=== PATIENT | female | born 1945 | race Caucasian/White ===

== ENCOUNTER 2017-12-20 08:52 | Emergency (ER) | payer MEDICARE, OTHER ==
[~2017-12-20] VITALS: Ht 193 cm; Wt 116.0 kg
[~2017-12-20 08:52] MED LIST: ACET-2144 PO; ALBU18HF2 INH; ASPI81TA52 PO; ATOR20TA PO; CALC-729 PO; CLIN150C8 PO; CLOP75TA15 PO; CYCL-1 PO; MECL12.5 PO; METO-395 PO; OMEP-84 PO; PRED5TAB PO; TRAM50TA2 PO; ZOLE5INF7 IV
[2017-12-20 09:53] LABS: BASOPHILS % (AUTO) 0.5 % (0-1); EOSINOPHILS # (AUTO) 0.1 X10'3 (0-0.9); HEMATOCRIT 39.3 % (35.0-45.0); HEMOGLOBIN 12.9 g/dl (12.0-16.0); LYMPHOCYTES # (AUTO) 1.1 X10'3 (1.1-4.8); LYMPHOCYTES % (AUTO) 18.2 % (21-51); MEAN CORPUSCULAR HEMOGLOBIN 28.6 PG (27.0-31.0); MEAN CORPUSCULAR HGB CONC 32.9 % (33.0-36.5); MEAN CORPUSCULAR VOLUME 87.1 FL (78-98); MEAN PLATELET VOLUME 8.7 FL (7.4-10.4); MONOCYTES # (AUTO) 0.7 X10'3 (0-0.9); MONOCYTES % (AUTO) 11.4 % (2-12); NEUTROPHILS # (AUTO) 4.3 X10'3 (1.8-7.7); NEUTROPHILS % (AUTO) 68.9 % (42-75); PLATELET COUNT 158 X10'3 (140-440); RED CELL DISTRIBUTION WIDTH 15.4 % (11.5-14.5); WHITE BLOOD COUNT 6.2 X10'3 (4.5-11.0)
[2017-12-20 10:12] LABS: ALANINE AMINOTRANSFERASE 16 U/L (12-78); ALBUMIN 2.8 G/DL (3.4-5.0); ALBUMIN/GLOBULIN RATIO 0.7 (1.1-1.5); ALKALINE PHOSPHATASE 86 IU/L (46-116); ANION GAP 7 (8-16); ASPARTATE AMINO TRANSFERASE 15 U/L (10-37); BILIRUBIN,TOTAL 0.3 MG/DL (0.1-1.0); BLOOD UREA NITROGEN 50 MG/DL (7-18); BUN/CREATININE RATIO 46.7 (6.6-38.0); CALCIUM 8.9 MG/DL (8.5-10.1); CHLORIDE 105 MMOL/L (99-107); CREATININE 1.07 MG/DL (0.40-0.90); GLUCOSE 107 MG/DL (70-104); POTASSIUM 4.5 MMOL/L (3.5-5.1); SODIUM 138 MMOL/L (135-145); TOTAL PROTEIN 6.8 G/DL (6.4-8.2); eGFR 50 ML/MIN
[2017-12-20 11:16] LABS: CLARITY,URINE CLOUDY (Clear); COLOR,URINE YELLOW (Yellow); GLUCOSE, URINE NEGATIVE (Neg); KETONES,URINE NEGATIVE (Neg); LEUKOCYTE ESTERASE ,URINE MODERATE (Neg); NITRITES, URINE POSITIVE (Neg); OCCULT BLOOD,URINE LARGE (Neg); PH,URINE 6.5 (4.8-8.0); PROTEIN,URINE NEGATIVE (Neg); UA COLLECTION TYPE CLN CATCH MIDSTREAM; UROBILINOGEN,URINE 0.2 E.U/dL (0.2-1.0)
[2017-12-20 11:21] LABS: SQUAMOUS EPITHELIAL CELL,UR FEW /LPF (FEW)
[2017-12-20 11:22] LABS: BACTERIA,URINE 2+ /HPF (Neg)
[2017-12-20] MEDS ORDERED: CIPR-259 PO (11:28)
[2017-12-20 11:46] VITALS: BP 136/74
== END 2017-12-20 11:51 | disposition home or self-care (01) ==
LOC: ER 08:52
DX: N39.0 Urinary tract infection, site not specified (principal); I25.10 Atherosclerotic heart disease of native coronary artery without angina pectoris; I25.2 Old myocardial infarction; G89.29 Other chronic pain; Z90.49 Acquired absence of other specified parts of digestive tract; Z90.710 Acquired absence of both cervix and uterus; Z98.890 Other specified postprocedural states; Z88.0 Allergy status to penicillin; Z88.5 Allergy status to narcotic agent; Z79.899 Other long term (current) drug therapy; Z79.82 Long term (current) use of aspirin
CPT/HCPCS: 36415; 71045; 80053; 81001; 83880; 84484; 85025; 87077; 87088; 87186; 93005; 99285

== ENCOUNTER 2018-05-22 06:19 | Emergency (ER) | payer MEDICARE, OTHER ==
[~2018-05-22] VITALS: Ht 193 cm; Wt 113.6 kg
[2018-05-22] MEDS ORDERED: METH500T PO (07:01)
[2018-05-22] MEDS ORDERED: VAL5T PO (07:01)
[2018-05-22 07:30] VITALS: BP 143/76
== END 2018-05-22 07:30 | disposition home or self-care (01) ==
LOC: ER 06:20
DX: M62.830 Muscle spasm of back (principal); I25.10 Atherosclerotic heart disease of native coronary artery without angina pectoris; I25.2 Old myocardial infarction; Z86.73 Personal history of transient ischemic attack (TIA), and cerebral infarction without residual deficits; Z86.718 Personal history of other venous thrombosis and embolism; M06.9 Rheumatoid arthritis, unspecified; Z90.49 Acquired absence of other specified parts of digestive tract; Z90.710 Acquired absence of both cervix and uterus; Z79.82 Long term (current) use of aspirin; Z88.0 Allergy status to penicillin; Z88.8 Allergy status to other drugs, medicaments and biological substances; Z88.6 Allergy status to analgesic agent; Z88.1 Allergy status to other antibiotic agents; Z91.041 Radiographic dye allergy status; G89.29 Other chronic pain
CPT/HCPCS: 99283

== ENCOUNTER 2018-12-08 07:54 | Day surgery (SDC) | payer MEDICARE, OTHER ==
[2018-11-27 12:36] LABS: BASOPHILS % (AUTO) 0.4 % (0-1); EOSINOPHILS # (AUTO) 0.1 X10'3 (0-0.9); EOSINOPHILS % (AUTO) 2.7 % (0-6); LYMPHOCYTES # (AUTO) 1.2 X10'3 (1.1-4.8); MEAN CORPUSCULAR HEMOGLOBIN 20.8 PG (27.0-31.0); MEAN CORPUSCULAR HGB CONC 31.4 g/dL (33.0-36.5); MEAN CORPUSCULAR VOLUME 66.3 FL (78-98); MEAN PLATELET VOLUME 8.9 FL (7.4-10.4); MONOCYTES # (AUTO) 0.6 X10'3 (0-0.9); MONOCYTES % (AUTO) 11.6 % (2-12); NEUTROPHILS # (AUTO) 2.9 X10'3 (1.8-7.7); NEUTROPHILS % (AUTO) 60.3 % (42-75); PRE OP HEMATOCRIT 33.3 % (35.0-45.0); PRE OP PLATELET COUNT 184 X10'3 (140-440); RED BLOOD COUNT 5.02 X10'6 (4.20-5.60); RED CELL DISTRIBUTION WIDTH 20.6 % (11.5-14.5)
[2018-11-27 12:39] LABS: PRE OP HEMOGLOBIN 10.4 g/dL (12.0-16.0)
[2018-11-27 12:40] LABS: BLOOD UREA NITROGEN 17 MG/DL (7-18); BUN/CREATININE RATIO 18.3 (6.6-38.0); CALCIUM 9.3 MG/DL (8.5-10.1); CHLORIDE 106 MMOL/L (99-107); CREATININE 0.93 MG/DL (0.40-0.90); PRE OP ANION GAP 6 (8-16); PRE OP GLUCOSE 104 MG/DL (70-104); PRE OP POTASSIUM 4.1 MMOL/L (3.4-5.1); PRE OP SODIUM 140 MMOL/L (135-145); TOTAL CARBON DIOXIDE 28.3 MMOL/L (24-32); eGFR 59 ML/MIN
[2018-11-27 12:41] LABS: ALBUMIN 3.2 G/DL (3.4-5.0); ALBUMIN/GLOBULIN RATIO 0.8 (1.1-1.5); ALKALINE PHOSPHATASE 87 IU/L (46-116); PRE OP ALT 17 U/L (30-65); PRE OP AST 13 U/L (10-37); PRE OP BILIRUB, TOTAL 0.3 MG/DL (0.0-1.0); TOTAL PROTEIN 7.1 G/DL (6.4-8.2)
[2018-11-27 14:29] LABS: PLATELET ESTIMATE NORMAL
[2018-11-27 14:33] LABS: ANISOCYTOSIS 3+; ELLIPTOCYTES 2+; HYPOCHROMASIA 1+; MICROCYTOSIS 2+
[2018-11-27 14:34] LABS: SCHISTOCYTES FEW; TEAR DROP CELLS FEW
[~2018-12-08] VITALS: Ht 193 cm; Wt 108.0 kg
[~2018-12-08 07:54] MED LIST changes: +ASPI-1264 PO; -ASPI81TA52 PO; +BUPIVAcaine/PF 2.5mg/ml (0.25%) 10ml vial ONE; -CALC-729 PO; -CLIN150C8 PO; -CYCL-1 PO; -PRED5TAB PO
[2018-12-08 08:00] VITALS: BP 127/68
[2018-12-08] MEDS ORDERED: ringers solution, lacted 1,000 ML IV SCH (08:00)
[2018-12-08] MEDS ORDERED: clindamycin 600mg/D5W 50ml 50 ML IV ONE (08:00)
[2018-12-08] MEDS ORDERED: DOCUMENT DATE & TIME OF BETA-BLOCKER PO ONE (08:00)
[2018-12-08] MEDS ORDERED: famotidine 20mg tablet PO ONE (08:00)
[2018-12-08] MEDS ORDERED: albuterol 2.5 MG/3 ML nebule NEB ONE (08:00)
--- NOTE | 2018-12-08 09:16 | NUR ---
Patient's surgery was cancelled because patient could not find a ride home, insisted on driving her motorized wheelchair home after surgery. patient is right handed, was to have rt wrist arthodesis. Due to her medical history, pt was in need of a block which would have affected her mobility of driving her wheelchair. [employer] was called yesterday.Taxi's were called and declined, pt has no family or friends, [employer] was called, but pt's handicap transportation card had in 2013. [employer] and [employer] were called and declined because based on the pts apartment location, they are unable to turn around or deliver the pt safely to her home. (based on the physical location of apt) I spoke with [facility] yesterday and they told me if pt reapplies for [facility] they will be able to take her home, but the reapplication process takes a week or two. I explained this to Dr Regalado and he decided to delay the surgery until pt can arrange transportation with [facility]. I spoke with pt and she is ok with this solution.
[2018-12-08] MEDS ORDERED: CLOP75TA35 PO (10:55)
== END 2018-12-08 09:30 | disposition home or self-care (01) ==
LOC: PAS 07:54
PROVIDERS: ATTEND Orthopaedic Surgery Hand Surgery
DX: M06.9 Rheumatoid arthritis, unspecified (principal); Z53.8 Procedure and treatment not carried out for other reasons; F17.210 Nicotine dependence, cigarettes, uncomplicated; Z79.899 Other long term (current) drug therapy; Z79.01 Long term (current) use of anticoagulants; Z88.6 Allergy status to analgesic agent; Z88.8 Allergy status to other drugs, medicaments and biological substances; M25.531 Pain in right wrist; Z91.041 Radiographic dye allergy status; Z98.890 Other specified postprocedural states
CPT/HCPCS: 36415; 80053; 82948; 85025; 85610; 85730; 93005; J3490; J7120

== ENCOUNTER 2018-12-12 08:05 | Emergency (ER) | payer MEDICARE, OTHER ==
[~2018-12-12] VITALS: Ht 193 cm; Wt 109.1 kg
[~2018-12-12 08:05] MED LIST changes: -BUPIVAcaine/PF 2.5mg/ml (0.25%) 10ml vial ONE; +CLOP75TA35 PO
[2018-12-12 09:20] LABS: CLARITY,URINE CLOUDY (Clear); COLOR,URINE YELLOW (Yellow); UA COLLECTION TYPE CLN CATCH MIDSTREAM
[2018-12-12 09:21] LABS: GLUCOSE, URINE NEGATIVE (Neg); KETONES,URINE NEGATIVE (Neg); PROTEIN,URINE 30 mg/dl (Neg)
[2018-12-12 09:22] LABS: LEUKOCYTE ESTERASE ,URINE NEGATIVE (Neg); NITRITES, URINE POSITIVE (Neg); OCCULT BLOOD,URINE TRACE-LYSED (Neg); UROBILINOGEN,URINE 0.2 E.U/dL (0.2-1.0)
[2018-12-12 09:23] LABS: BACTERIA,URINE 4+ /HPF (Neg); RBC,URINE 0-2 /HPF (0-2); WBC,URINE TNTC /HPF (0-4)
[2018-12-12 09:24] LABS: SQUAMOUS EPITHELIAL CELL,UR FEW /LPF (FEW)
[2018-12-12] MEDS ORDERED: CEPH500C5 PO (09:41)
[2018-12-12 09:53] VITALS: BP 146/66
== END 2018-12-12 09:54 | disposition home or self-care (01) ==
LOC: ER 08:07
DX: N39.0 Urinary tract infection, site not specified (principal); I25.10 Atherosclerotic heart disease of native coronary artery without angina pectoris; I25.2 Old myocardial infarction; G89.29 Other chronic pain; M06.9 Rheumatoid arthritis, unspecified; Z86.73 Personal history of transient ischemic attack (TIA), and cerebral infarction without residual deficits; Z86.718 Personal history of other venous thrombosis and embolism; Z86.711 Personal history of pulmonary embolism; Z90.49 Acquired absence of other specified parts of digestive tract; Z98.890 Other specified postprocedural states; Z90.710 Acquired absence of both cervix and uterus; Z79.899 Other long term (current) drug therapy; Z79.82 Long term (current) use of aspirin; Z88.6 Allergy status to analgesic agent; Z88.0 Allergy status to penicillin; Z88.1 Allergy status to other antibiotic agents; Z88.8 Allergy status to other drugs, medicaments and biological substances
CPT/HCPCS: 81001; 87077; 87088; 87186; 99284

== ENCOUNTER 2019-01-19 10:41 | Emergency (ER) | payer MEDICARE, OTHER ==
[~2019-01-19] VITALS: Ht 193 cm; Wt 109.1 kg
[~2019-01-19 10:41] MED LIST changes: -ALBU18HF2 INH; -CLOP75TA15 PO; +DIPH25CA83 PO; -MECL12.5 PO; -TRAM50TA2 PO; -ZOLE5INF7 IV
[2019-01-19 10:53] VITALS: BP 122/56
--- NOTE | 2019-01-19 11:36 | NUR ---
PT HAS BEEN HAVING BLADDER SPASMS WHEN URINATING FOR ABOUT 2 WEEKS INTERMITTENTLY, THINKS SHE HAS A BLADDER INFECTION
[2019-01-19 12:19] LABS: CLARITY,URINE CLOUDY (Clear); COLOR,URINE YELLOW (Yellow); GLUCOSE, URINE NEGATIVE (Neg); KETONES,URINE NEGATIVE (Neg); LEUKOCYTE ESTERASE ,URINE LARGE (Neg); NITRITES, URINE POSITIVE (Neg); OCCULT BLOOD,URINE TRACE-INTACT (Neg); PROTEIN,URINE NEGATIVE (Neg); UROBILINOGEN,URINE 0.2 E.U/dL (0.2-1.0)
[2019-01-19 12:24] LABS: UA COLLECTION TYPE CLN CATCH MIDSTREAM
[2019-01-19 12:31] LABS: BACTERIA,URINE 4+ /HPF (Neg); MUCUS STRANDS FEW /LPF (Neg); SQUAMOUS EPITHELIAL CELL,UR MANY /LPF (FEW); WBC,URINE 20-30 /HPF (0-4)
--- NOTE | 2019-01-19 13:08 | NUR ---
pt demanded to leave. educated about leaving without paperwork and that i will speak to the provider. spoke with Moisés BROWN and walking back to room to soeak with pt but pt had already left in w/c with all belongings.
--- NOTE | 2019-01-19 13:15 | NUR ---
LAB WAS IN TO DRAW BLOOD AND TOLD NURSE SHE SAW TWO BUGS CRAWLING ON PT. NURSE IN TO SPEAK WITH PT AND FOUND THREE MORE WHICH WERE KILLED, ONE LIVE BUG ON THE FLOOR AND ONE ONE ON THE FLOOR, FIVE IN TOTAL. BUGS WERE BEDBUGS. WHEN PT WAS TOLD SHE HAD BEDBUGS, SHE SAID "I KNOW. 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 PROVIDER AND CHARGE NURSE WERE NOTIFIED, PT WAS MOVED TO WOUND CARE BED 2. PT WOULD NOT STAY IN ROOM WHEN ASKED. BUG WAS FOUND ON FLOOR BETWEEN BED E AND BED 2, HAD BEEN RUN OVER BY PT'S W/C AND LEFT BLOOD SPOT ON THE FLOOR. ENGINEERING WAS CALLED TO PLACE STICKY BARRIER ON FLOOR OUTSIDE ROOM AND EVS WAS CALLED TO CLEAN BED E Addendum: 01/19/19 at 2026 by RPRATHER LATE ENTRY.
[2019-01-19 13:31] LABS: BASOPHILS % (AUTO) 0.1 % (0-1); EOSINOPHILS # (AUTO) 0.1 X10'3 (0-0.9); EOSINOPHILS % (AUTO) 2.9 % (0-6); HEMATOCRIT 29.8 % (35.0-45.0); HEMOGLOBIN 9.1 g/dl (12.0-16.0); LYMPHOCYTES % (AUTO) 23.2 % (21-51); MEAN CORPUSCULAR HEMOGLOBIN 20.3 PG (27.0-31.0); MEAN CORPUSCULAR HGB CONC 30.5 g/dL (33.0-36.5); MEAN CORPUSCULAR VOLUME 66.7 FL (78-98); MEAN PLATELET VOLUME 8.8 FL (7.4-10.4); MONOCYTES # (AUTO) 0.5 X10'3 (0-0.9); MONOCYTES % (AUTO) 12.3 % (2-12); NEUTROPHILS # (AUTO) 2.5 X10'3 (1.8-7.7); NEUTROPHILS % (AUTO) 61.5 % (42-75); PLATELET COUNT 207 X10'3 (140-440); RED BLOOD COUNT 4.47 X10'6 (4.20-5.60); RED CELL DISTRIBUTION WIDTH 20.6 % (11.5-14.5); WHITE BLOOD COUNT 4.1 X10'3 (4.5-11.0)
[2019-01-19 14:00] LABS: ANISOCYTOSIS 3+; HYPOCHROMASIA 1+; MICROCYTOSIS 2+; PLATELET ESTIMATE NORMAL
[2019-01-19 14:01] LABS: ELLIPTOCYTES 2+; POIKILOCYTOSIS FEW; POLYCHROMASIA FEW
== END 2019-01-19 13:21 | disposition left against medical advice (07) ==
LOC: ER 10:42
DX: N17.9 Acute kidney failure, unspecified (principal); E87.6 Hypokalemia; I25.10 Atherosclerotic heart disease of native coronary artery without angina pectoris; I25.2 Old myocardial infarction; G89.29 Other chronic pain; M06.9 Rheumatoid arthritis, unspecified; Z86.711 Personal history of pulmonary embolism; Z86.718 Personal history of other venous thrombosis and embolism; Z90.49 Acquired absence of other specified parts of digestive tract; Z87.442 Personal history of urinary calculi; Z90.710 Acquired absence of both cervix and uterus; Z86.73 Personal history of transient ischemic attack (TIA), and cerebral infarction without residual deficits; Z98.890 Other specified postprocedural states; Z88.0 Allergy status to penicillin; Z88.1 Allergy status to other antibiotic agents; Z91.048 Other nonmedicinal substance allergy status; Z79.82 Long term (current) use of aspirin; Z79.899 Other long term (current) drug therapy
CPT/HCPCS: 36415; 81001; 85025; 99284

== ENCOUNTER 2019-01-28 06:26 | Emergency (ER) | payer MEDICARE ==
[~2019-01-28] VITALS: Ht 193 cm; Wt 109.0 kg
[2019-01-28 08:12] LABS: CLARITY,URINE CLOUDY (Clear); COLOR,URINE YELLOW (Yellow); GLUCOSE, URINE NEGATIVE (Neg); KETONES,URINE NEGATIVE (Neg); LEUKOCYTE ESTERASE ,URINE MODERATE (Neg); NITRITES, URINE NEGATIVE (Neg); OCCULT BLOOD,URINE TRACE-INTACT (Neg); PROTEIN,URINE 100 mg/dl (Neg); UROBILINOGEN,URINE 0.2 E.U/dL (0.2-1.0)
[2019-01-28 08:13] LABS: UA COLLECTION TYPE URINAL
[2019-01-28 08:19] LABS: WBC,URINE TNTC /HPF (0-4)
[2019-01-28 08:20] LABS: RBC,URINE 0-2 /HPF (0-2); SQUAMOUS EPITHELIAL CELL,UR MODERATE /LPF (FEW)
[2019-01-28 08:21] LABS: BACTERIA,URINE 4+ /HPF (Neg)
[2019-01-28] MEDS ORDERED: CEPH500C5 PO (08:25)
[2019-01-28 08:59] VITALS: BP 136/67
== END 2019-01-28 09:02 | disposition home or self-care (01) ==
LOC: ER 06:26
DX: N39.0 Urinary tract infection, site not specified (principal); I25.10 Atherosclerotic heart disease of native coronary artery without angina pectoris; I25.2 Old myocardial infarction; M06.9 Rheumatoid arthritis, unspecified; G89.29 Other chronic pain; Z86.718 Personal history of other venous thrombosis and embolism; Z86.711 Personal history of pulmonary embolism; Z90.49 Acquired absence of other specified parts of digestive tract; Z90.710 Acquired absence of both cervix and uterus; Z98.890 Other specified postprocedural states; Z88.1 Allergy status to other antibiotic agents; Z88.0 Allergy status to penicillin; Z88.5 Allergy status to narcotic agent; Z88.6 Allergy status to analgesic agent; Z88.8 Allergy status to other drugs, medicaments and biological substances; Z79.82 Long term (current) use of aspirin; Z79.899 Other long term (current) drug therapy; Z86.73 Personal history of transient ischemic attack (TIA), and cerebral infarction without residual deficits
CPT/HCPCS: 81001; 87088; 99284

== ENCOUNTER 2019-03-07 19:05 | Emergency (ER) | payer MEDICARE, OTHER ==
[~2019-03-07] VITALS: Ht 193 cm; Wt 93.4 kg
[2019-03-07 19:24] VITALS: BP 128/68
[2019-03-07 20:10] LABS: CLARITY,URINE TURBID (Clear); COLOR,URINE YELLOW (Yellow); GLUCOSE, URINE NEGATIVE (Neg); KETONES,URINE NEGATIVE (Neg); LEUKOCYTE ESTERASE ,URINE LARGE (Neg); NITRITES, URINE POSITIVE (Neg); OCCULT BLOOD,URINE MODERATE (Neg); PH,URINE 6.5 (4.8-8.0); PROTEIN,URINE 30 mg/dl (Neg); UROBILINOGEN,URINE 0.2 E.U/dL (0.2-1.0)
[2019-03-07 20:11] LABS: UA COLLECTION TYPE CLN CATCH MIDSTREAM
[2019-03-07 20:35] LABS: BACTERIA,URINE 4+ /HPF (Neg); MUCUS STRANDS MODERATE /LPF (Neg); RBC,URINE NONE SEEN /HPF (0-2); SQUAMOUS EPITHELIAL CELL,UR FEW /LPF (FEW); WBC,URINE TNTC /HPF (0-4)
[2019-03-07 21:27] LABS: BASOPHILS % (AUTO) 0.1 % (0-1); EOSINOPHILS # (AUTO) 0.1 X10'3 (0-0.9); EOSINOPHILS % (AUTO) 1.5 % (0-6); HEMATOCRIT 30.7 % (35.0-45.0); HEMOGLOBIN 9.3 g/dl (12.0-16.0); LYMPHOCYTES # (AUTO) 1.2 X10'3 (1.1-4.8); LYMPHOCYTES % (AUTO) 30.3 % (21-51); MEAN CORPUSCULAR HEMOGLOBIN 19.5 PG (27.0-31.0); MEAN CORPUSCULAR HGB CONC 30.4 g/dL (33.0-36.5); MEAN CORPUSCULAR VOLUME 64.4 FL (78-98); MEAN PLATELET VOLUME 8.3 FL (7.4-10.4); MONOCYTES # (AUTO) 0.7 X10'3 (0-0.9); MONOCYTES % (AUTO) 16.9 % (2-12); NEUTROPHILS % (AUTO) 51.2 % (42-75); PLATELET COUNT 188 X10'3 (140-440); RED BLOOD COUNT 4.78 X10'6 (4.20-5.60); RED CELL DISTRIBUTION WIDTH 20.2 % (11.5-14.5); WHITE BLOOD COUNT 3.9 X10'3 (4.5-11.0)
[2019-03-07 21:34] LABS: ANION GAP 6 (8-16); BLOOD UREA NITROGEN 12 MG/DL (7-18); BUN/CREATININE RATIO 13.8 (6.6-38.0); CALCIUM 8.4 MG/DL (8.5-10.1); CHLORIDE 107 MMOL/L (99-107); CREATININE 0.87 MG/DL (0.40-0.90); GLUCOSE 110 MG/DL (70-104); POTASSIUM 3.5 MMOL/L (3.5-5.1); SODIUM 141 MMOL/L (135-145); TOTAL CARBON DIOXIDE 27.6 MMOL/L (24-32); eGFR 63 ML/MIN
[2019-03-07 22:12] LABS: TOTAL CELLS COUNTED 100
[2019-03-07 22:13] LABS: ANISOCYTOSIS 3+; ELLIPTOCYTES 3+; HYPOCHROMASIA 1+; MICROCYTOSIS 2+; TOXIC GRANULATION 1+; TOXIC VACUOLATION 1+
[2019-03-07 22:16] LABS: PLATELET ESTIMATE NORMAL
[2019-03-07] MEDS ORDERED: CefTRIAXone 1000mg IM Kit (w/lidocaine diluent) IM ONE (22:40)
[2019-03-07] MEDS ORDERED: CEPH500C5 PO (22:42)
[2019-03-07] MEDS ORDERED: PHEN-716 PO (22:42)
[2019-03-07] MEDS ORDERED: SULF1TAB49 PO (22:42)
== END 2019-03-07 23:34 | disposition home or self-care (01) ==
LOC: ER 19:05
DX: N39.0 Urinary tract infection, site not specified (principal); I25.10 Atherosclerotic heart disease of native coronary artery without angina pectoris; I25.2 Old myocardial infarction; M06.9 Rheumatoid arthritis, unspecified; F17.200 Nicotine dependence, unspecified, uncomplicated; Z86.711 Personal history of pulmonary embolism; Z87.442 Personal history of urinary calculi; Z86.718 Personal history of other venous thrombosis and embolism; Z90.49 Acquired absence of other specified parts of digestive tract; Z90.710 Acquired absence of both cervix and uterus; Z98.890 Other specified postprocedural states; Z88.1 Allergy status to other antibiotic agents; Z88.0 Allergy status to penicillin; Z88.5 Allergy status to narcotic agent; Z88.6 Allergy status to analgesic agent; Z88.8 Allergy status to other drugs, medicaments and biological substances; Z79.82 Long term (current) use of aspirin; Z79.899 Other long term (current) drug therapy
CPT/HCPCS: 36415; 80048; 81001; 85025; 87088; 96372; 99283; J0696; 87077; 87186

== ENCOUNTER 2019-06-14 14:31 | Emergency (ER) | payer MEDICARE, OTHER ==
[~2019-06-14] VITALS: Ht 193 cm; Wt 204.0 kg
[~2019-06-14 14:31] MED LIST changes: +CEPH500C5 PO; +PHEN-716 PO
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
[2019-06-14 15:41] VITALS: BP 153/72
[2019-06-14] MEDS ORDERED: DOXY100C43 PO (17:20)
[2019-06-14] MEDS ORDERED: ALBU8.5H8 INH (17:21)
== END 2019-06-14 17:33 | disposition home or self-care (01) ==
LOC: ER 14:32
DX: J18.1 Lobar pneumonia, unspecified organism (principal); I25.10 Atherosclerotic heart disease of native coronary artery without angina pectoris; I25.2 Old myocardial infarction; Z87.442 Personal history of urinary calculi; G89.29 Other chronic pain; Z86.718 Personal history of other venous thrombosis and embolism; M19.90 Unspecified osteoarthritis, unspecified site; Z86.73 Personal history of transient ischemic attack (TIA), and cerebral infarction without residual deficits; Z90.49 Acquired absence of other specified parts of digestive tract; Z90.710 Acquired absence of both cervix and uterus; Z98.890 Other specified postprocedural states; Z88.1 Allergy status to other antibiotic agents; Z88.0 Allergy status to penicillin; Z88.5 Allergy status to narcotic agent; Z88.6 Allergy status to analgesic agent; Z91.09 Other allergy status, other than to drugs and biological substances; Z79.82 Long term (current) use of aspirin; Z79.899 Other long term (current) drug therapy
CPT/HCPCS: 71045; 99283

== ENCOUNTER 2019-06-25 08:35 | Emergency (ER) | payer MEDICARE ==
[~2019-06-25] VITALS: Ht 193 cm; Wt 92.7 kg
[~2019-06-25 08:35] MED LIST changes: +ALBU8.5H8 INH; +DOXY100C43 PO
[2019-06-25 09:09] VITALS: BP 117/65
[2019-06-25] MEDS ORDERED: albuterol 2.5 MG/3 ML nebule NEB ONE (10:25)
[2019-06-25] MEDS ORDERED: BENZ-16 PO (11:07)
== END 2019-06-25 12:03 | disposition home or self-care (01) ==
LOC: ER 08:38
DX: R05 Cough (principal); J44.9 Chronic obstructive pulmonary disease, unspecified; I25.10 Atherosclerotic heart disease of native coronary artery without angina pectoris; I25.2 Old myocardial infarction; G89.29 Other chronic pain; M06.9 Rheumatoid arthritis, unspecified; F17.200 Nicotine dependence, unspecified, uncomplicated; Z88.8 Allergy status to other drugs, medicaments and biological substances; Z88.0 Allergy status to penicillin; Z88.1 Allergy status to other antibiotic agents; Z79.82 Long term (current) use of aspirin; Z79.2 Long term (current) use of antibiotics; Z88.6 Allergy status to analgesic agent; Z86.73 Personal history of transient ischemic attack (TIA), and cerebral infarction without residual deficits; Z86.718 Personal history of other venous thrombosis and embolism; Z87.19 Personal history of other diseases of the digestive system; Z87.442 Personal history of urinary calculi; Z87.440 Personal history of urinary (tract) infections; Z90.49 Acquired absence of other specified parts of digestive tract; Z90.710 Acquired absence of both cervix and uterus; Z98.890 Other specified postprocedural states
CPT/HCPCS: 94640; 94760; 99283

== ENCOUNTER 2019-10-20 14:31 | Emergency (ER) | payer MEDICARE, OTHER ==
[~2019-10-20] VITALS: Ht 193 cm; Wt 90.9 kg
[~2019-10-20 14:31] MED LIST changes: -DOXY100C43 PO
[2019-10-20] MEDS ORDERED: ketorolac trometh inj. 60 MG/2 ML VIAL IM ONE (15:10)
[2019-10-20] MEDS ORDERED: CYCL-1 PO (15:11)
[2019-10-20] MEDS ORDERED: cyclobenzaprine 10mg tablet PO ONE (15:15)
[2019-10-20 15:31] VITALS: BP 134/92
== END 2019-10-20 15:29 | disposition home or self-care (01) ==
LOC: ER 14:32
DX: M54.5 Low back pain (principal); R25.2 Cramp and spasm; I25.10 Atherosclerotic heart disease of native coronary artery without angina pectoris; I25.2 Old myocardial infarction; J44.9 Chronic obstructive pulmonary disease, unspecified; M06.9 Rheumatoid arthritis, unspecified; Z86.73 Personal history of transient ischemic attack (TIA), and cerebral infarction without residual deficits; Z86.711 Personal history of pulmonary embolism; Z86.718 Personal history of other venous thrombosis and embolism; Z87.440 Personal history of urinary (tract) infections; Z90.49 Acquired absence of other specified parts of digestive tract; Z90.710 Acquired absence of both cervix and uterus; Z98.890 Other specified postprocedural states; Z88.6 Allergy status to analgesic agent; Z88.1 Allergy status to other antibiotic agents; Z88.5 Allergy status to narcotic agent; Z88.0 Allergy status to penicillin; Z88.8 Allergy status to other drugs, medicaments and biological substances; Z79.2 Long term (current) use of antibiotics; Z79.82 Long term (current) use of aspirin; Z79.899 Other long term (current) drug therapy
CPT/HCPCS: 96372; 99283; J1885; 96366

== ENCOUNTER 2020-10-23 14:39 | Emergency (ER) | payer MEDICARE, OTHER ==
[~2020-10-23] VITALS: Ht 193 cm; Wt 93.2 kg
[~2020-10-23 14:39] MED LIST changes: -ACET-2144 PO; +ACET-3209 PO; -CEPH500C5 PO; +CLOP75TA34 PO; -CLOP75TA35 PO; +CYCL-1 PO
[2020-10-23 14:44] VITALS: BP 141/75
[2020-10-23] MEDS ORDERED: CLIN-97 PO (15:24)
[2020-10-23] MEDS ORDERED: LIDO20SO16 PO (15:24)
== END 2020-10-23 15:56 | disposition home or self-care (01) ==
LOC: ER 14:39
DX: K04.7 Periapical abscess without sinus (principal); K08.89 Other specified disorders of teeth and supporting structures; I25.10 Atherosclerotic heart disease of native coronary artery without angina pectoris; I25.2 Old myocardial infarction; J44.9 Chronic obstructive pulmonary disease, unspecified; G89.29 Other chronic pain; Z86.73 Personal history of transient ischemic attack (TIA), and cerebral infarction without residual deficits; Z86.711 Personal history of pulmonary embolism; Z87.442 Personal history of urinary calculi; Z87.440 Personal history of urinary (tract) infections; Z86.718 Personal history of other venous thrombosis and embolism; Z90.49 Acquired absence of other specified parts of digestive tract; Z90.710 Acquired absence of both cervix and uterus; Z98.890 Other specified postprocedural states; Z88.0 Allergy status to penicillin; Z88.5 Allergy status to narcotic agent; Z88.8 Allergy status to other drugs, medicaments and biological substances; Z88.1 Allergy status to other antibiotic agents; Z79.82 Long term (current) use of aspirin; Z79.899 Other long term (current) drug therapy
CPT/HCPCS: 99283

== ENCOUNTER 2020-11-16 16:00 | Emergency (ER) | payer MEDICARE ==
[~2020-11-16] VITALS: Ht 193 cm; Wt 88.6 kg
[~2020-11-16 16:00] MED LIST changes: +CLIN-97 PO; +LIDO20SO16 PO
[2020-11-16] MEDS ORDERED: ketorolac trometh. 30mg/ml inj. IM ONE (16:45)
[2020-11-16] MEDS ORDERED: cyclobenzaprine 10mg tablet PO ONE (16:45)
[2020-11-16 17:57] VITALS: BP 158/57
--- NOTE | 2020-11-16 23:40 | NUR ---
Pt leaving room 3 with ambulance to go back to her residence, verbalize understanding discharge instruction signed earlier. Denies pain
== END 2020-11-16 23:40 | disposition home or self-care (01) ==
LOC: ER 16:02
DX: S39.012A Strain of muscle, fascia and tendon of lower back, initial encounter (principal); I25.10 Atherosclerotic heart disease of native coronary artery without angina pectoris; I25.2 Old myocardial infarction; J44.9 Chronic obstructive pulmonary disease, unspecified; M06.9 Rheumatoid arthritis, unspecified; Z87.01 Personal history of pneumonia (recurrent); Z87.440 Personal history of urinary (tract) infections; Z87.442 Personal history of urinary calculi; Z86.718 Personal history of other venous thrombosis and embolism; Z79.82 Long term (current) use of aspirin; Z79.899 Other long term (current) drug therapy; Z88.0 Allergy status to penicillin; Z88.1 Allergy status to other antibiotic agents; Z88.8 Allergy status to other drugs, medicaments and biological substances; Z91.041 Radiographic dye allergy status; Z88.6 Allergy status to analgesic agent; X58.XXXA Exposure to other specified factors, initial encounter; Y93.89 Activity, other specified; Y92.89 Other specified places as the place of occurrence of the external cause; Y99.8 Other external cause status
CPT/HCPCS: 96372; 99283; J1885

== ENCOUNTER 2021-02-15 16:07 | Emergency (ER) | payer MEDICARE, OTHER ==
[~2021-02-15] VITALS: Ht 193 cm; Wt 88.6 kg
[~2021-02-15 16:07] MED LIST changes: +ALBU8.5H17 INH; -ALBU8.5H8 INH
[2021-02-15 16:24] VITALS: BP 114/73
[2021-02-15] MEDS ORDERED: acetaminophen 325mg tablet PO ONE (18:05)
[2021-02-15] MEDS ORDERED: ketorolac tromethamine 15mg/ml inj. IM ONE (18:05)
== END 2021-02-15 19:23 | disposition home or self-care (01) ==
LOC: ER 16:07
DX: S29.011A Strain of muscle and tendon of front wall of thorax, initial encounter (principal); I25.10 Atherosclerotic heart disease of native coronary artery without angina pectoris; I25.2 Old myocardial infarction; J44.9 Chronic obstructive pulmonary disease, unspecified; Z86.718 Personal history of other venous thrombosis and embolism; Z86.73 Personal history of transient ischemic attack (TIA), and cerebral infarction without residual deficits; Z86.711 Personal history of pulmonary embolism; Z90.49 Acquired absence of other specified parts of digestive tract; Z90.710 Acquired absence of both cervix and uterus; Z88.0 Allergy status to penicillin; Z88.5 Allergy status to narcotic agent; Z88.8 Allergy status to other drugs, medicaments and biological substances; Z79.82 Long term (current) use of aspirin; Z79.2 Long term (current) use of antibiotics; Z79.899 Other long term (current) drug therapy; X58.XXXA Exposure to other specified factors, initial encounter; Y93.89 Activity, other specified; Y92.89 Other specified places as the place of occurrence of the external cause; Y99.8 Other external cause status
CPT/HCPCS: 71045; 96372; 99283; J1885

== ENCOUNTER 2021-05-23 15:29 | Emergency (ER) | payer MEDICARE, OTHER ==
[~2021-05-23] VITALS: Ht 193 cm; Wt 86.3 kg
[2021-05-23 16:02] VITALS: BP 161/72
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
== END 2021-05-23 17:12 | disposition left against medical advice (07) ==
LOC: ER 15:31
DX: R07.0 Pain in throat (principal); J44.9 Chronic obstructive pulmonary disease, unspecified; G89.29 Other chronic pain; I51.9 Heart disease, unspecified; Z88.1 Allergy status to other antibiotic agents; Z88.8 Allergy status to other drugs, medicaments and biological substances; Z88.0 Allergy status to penicillin; Z88.5 Allergy status to narcotic agent; Z88.6 Allergy status to analgesic agent
CPT/HCPCS: 99281

== ENCOUNTER 2021-09-10 07:25 | Emergency (ER) | payer MEDICARE, OTHER ==
[~2021-09-10] VITALS: Ht 193 cm; Wt 91.0 kg
[2021-09-10 07:31] VITALS: BP 140/70
[2021-09-10 08:14] LABS: BASOPHILS % (AUTO) 0.4 % (0-1); EOSINOPHILS # (AUTO) 0.1 X10'3 (0-0.9); EOSINOPHILS % (AUTO) 1.2 % (0-6); HEMATOCRIT 35.7 % (35.0-45.0); LYMPHOCYTES # (AUTO) 0.6 X10'3 (1.1-4.8); LYMPHOCYTES % (AUTO) 15.5 % (21-51); MEAN CORPUSCULAR HGB CONC 30.8 g/dL (33.0-36.5); MEAN CORPUSCULAR VOLUME 74.9 FL (78-98); MEAN PLATELET VOLUME 8.5 FL (7.4-10.4); MONOCYTES # (AUTO) 0.6 X10'3 (0-0.9); NEUTROPHILS # (AUTO) 2.8 X10'3 (1.8-7.7); NEUTROPHILS % (AUTO) 68.9 % (42-75); PLATELET COUNT 175 X10'3 (140-440); RED BLOOD COUNT 4.77 X10'6 (4.20-5.60); RED CELL DISTRIBUTION WIDTH 20.1 % (11.5-14.5); WHITE BLOOD COUNT 4.1 X10'3 (4.5-11.0)
[2021-09-10 08:26] LABS: ALANINE AMINOTRANSFERASE 10 U/L (12-78); ALBUMIN/GLOBULIN RATIO 0.7 (1.1-1.5); ALKALINE PHOSPHATASE 92 IU/L (46-116); ANION GAP 8 (8-16); ASPARTATE AMINO TRANSFERASE 11 U/L (10-37); BILIRUBIN,TOTAL 0.4 MG/DL (0.1-1.0); BLOOD UREA NITROGEN 13 MG/DL (7-18); BUN/CREATININE RATIO 15.5 (6.6-38.0); CALCIUM 8.6 MG/DL (8.5-10.1); CHLORIDE 106 MMOL/L (99-107); CREATININE 0.84 MG/DL (0.40-0.90); GLUCOSE 106 MG/DL (70-104); POTASSIUM 3.4 MMOL/L (3.5-5.1); SODIUM 140 MMOL/L (135-145); TOTAL CARBON DIOXIDE 25.9 MMOL/L (24-32); TOTAL PROTEIN 7.1 G/DL (6.4-8.2); eGFR 66 ML/MIN
[2021-09-10 08:38] LABS: CLARITY,URINE CLOUDY (Clear); COLOR,URINE YELLOW (Yellow); GLUCOSE, URINE NEGATIVE (Neg); KETONES,URINE NEGATIVE (Neg); LEUKOCYTE ESTERASE ,URINE MODERATE (Neg); NITRITES, URINE POSITIVE (Neg); OCCULT BLOOD,URINE MODERATE (Neg); PROTEIN,URINE 30 mg/dl (Neg); UROBILINOGEN,URINE 0.2 E.U/dL (0.2-1.0)
[2021-09-10 08:44] LABS: UA COLLECTION TYPE CLN CATCH MIDSTREAM
[2021-09-10 08:46] LABS: BACTERIA,URINE 4+ /HPF (Neg); MUCUS STRANDS FEW /LPF (Neg); SQUAMOUS EPITHELIAL CELL,UR FEW /LPF (FEW); WBC,URINE TNTC /HPF (0-4)
[2021-09-10 08:49] LABS: ANISOCYTOSIS 3+; MICROCYTOSIS 1+; PLATELET ESTIMATE NORMAL
[2021-09-10 08:50] LABS: ELLIPTOCYTES 2+; HYPOCHROMASIA 1+; SCHISTOCYTES FEW; TEAR DROP CELLS FEW
[2021-09-10] MEDS ORDERED: CEPH-585 PO (09:00)
--- NOTE | 2021-09-10 09:05 | NUR ---
Pt given and understands d/c instructions. Left the department in her wheelchair.
== END 2021-09-10 09:05 | disposition home or self-care (01) ==
LOC: ER 07:26
DX: R05.9 Cough, unspecified (principal); Z20.822 Contact with and (suspected) exposure to COVID-19; N39.0 Urinary tract infection, site not specified; I25.10 Atherosclerotic heart disease of native coronary artery without angina pectoris; I25.2 Old myocardial infarction; J44.9 Chronic obstructive pulmonary disease, unspecified; G89.29 Other chronic pain; Z86.73 Personal history of transient ischemic attack (TIA), and cerebral infarction without residual deficits; Z87.01 Personal history of pneumonia (recurrent); Z86.711 Personal history of pulmonary embolism; Z87.442 Personal history of urinary calculi; Z87.440 Personal history of urinary (tract) infections; Z86.718 Personal history of other venous thrombosis and embolism; Z85.9 Personal history of malignant neoplasm, unspecified; Z90.49 Acquired absence of other specified parts of digestive tract; Z90.710 Acquired absence of both cervix and uterus; Z98.890 Other specified postprocedural states; Z88.1 Allergy status to other antibiotic agents; Z88.0 Allergy status to penicillin; Z88.8 Allergy status to other drugs, medicaments and biological substances; Z88.5 Allergy status to narcotic agent; Z79.82 Long term (current) use of aspirin; Z79.2 Long term (current) use of antibiotics; Z79.899 Other long term (current) drug therapy
CPT/HCPCS: 71045; 80053; 81001; 85008; 85025; 87077; 87088; 87186; 87635; 99284; C9803

== ENCOUNTER 2022-03-15 04:49 | Emergency (ER) | payer MEDICARE, OTHER ==
[~2022-03-15] VITALS: Ht 182.9 cm; Wt 86.4 kg
[~2022-03-15 04:49] MED LIST changes: +CEPH-585 PO
[2022-03-15] MEDS ORDERED: normal saline 1000ML IV soln IVB ONE (05:45)
[2022-03-15 07:33] LABS: BASOPHILS % (AUTO) 0.8 % (0-1); EOSINOPHILS % (AUTO) 1.5 % (0-6); HEMATOCRIT 29.6 % (35.0-45.0); HEMOGLOBIN 9.3 g/dl (12.0-16.0); LYMPHOCYTES # (AUTO) 0.7 X10'3 (1.1-4.8); LYMPHOCYTES % (AUTO) 23.7 % (21-51); MEAN CORPUSCULAR HEMOGLOBIN 23.2 PG (27.0-31.0); MEAN CORPUSCULAR HGB CONC 31.4 g/dL (33.0-36.5); MEAN CORPUSCULAR VOLUME 73.8 FL (78-98); MEAN PLATELET VOLUME 7.8 FL (7.4-10.4); MONOCYTES # (AUTO) 0.4 X10'3 (0-0.9); MONOCYTES % (AUTO) 12.3 % (2-12); NEUTROPHILS # (AUTO) 1.8 X10'3 (1.8-7.7); NEUTROPHILS % (AUTO) 61.7 % (42-75); PLATELET COUNT 156 X10'3 (140-440); RED BLOOD COUNT 4.01 X10'6 (4.20-5.60)
--- NOTE | 2022-03-15 07:39 | NUR ---
SPOKE WITH THE DOCTOR REGARDING DIFFICULTY OF ATTAINING A LINE ON THE PATIENT. PUSHING ORAL FLUIDS ON THE PATIENT AND WAS ABLE TO RETREIVE BLOOD FOR LABS. Addendum: 03/15/22 at 0741 by [email or web address] SPOKE WITH THE DOCTOR REGARDING DIFFICULTY OF ATTAINING A LINE ON THE PATIENT. PUSHING ORAL FLUIDS ON THE PATIENT AND WAS ABLE TO RETRIEVE BLOOD FOR LABS.
[2022-03-15 07:42] LABS: ALANINE AMINOTRANSFERASE 10 U/L (12-78); ALBUMIN 2.7 G/DL (3.4-5.0); ALBUMIN/GLOBULIN RATIO 0.7 (1.1-1.5); ALKALINE PHOSPHATASE 87 IU/L (46-116); ANION GAP 7 (8-16); ASPARTATE AMINO TRANSFERASE 13 U/L (10-37); BILIRUBIN,TOTAL 0.4 MG/DL (0.1-1.0); BLOOD UREA NITROGEN 10 MG/DL (7-18); BUN/CREATININE RATIO 11.1 (6.6-38.0); CALCIUM 8.3 MG/DL (8.5-10.1); CHLORIDE 105 MMOL/L (99-107); GLUCOSE 101 MG/DL (70-104); POTASSIUM 3.6 MMOL/L (3.5-5.1); SODIUM 140 MMOL/L (135-145); TOTAL CARBON DIOXIDE 27.8 MMOL/L (24-32); TOTAL PROTEIN 6.7 G/DL (6.4-8.2); eGFR 61 ML/MIN
[2022-03-15 08:23] LABS: ANISOCYTOSIS 2+; ELLIPTOCYTES 2+; HYPOCHROMASIA 1+; MICROCYTOSIS 1+; PLATELET ESTIMATE NORMAL; TOTAL CELLS COUNTED 100
[2022-03-15 08:24] LABS: POLYCHROMASIA FEW; SCHISTOCYTES FEW; TEAR DROP CELLS FEW
[2022-03-15 10:04] LABS: GLUCOSE, URINE NEGATIVE (Neg); KETONES,URINE NEGATIVE (Neg); LEUKOCYTE ESTERASE ,URINE LARGE (Neg); NITRITES, URINE POSITIVE (Neg); OCCULT BLOOD,URINE SMALL (Neg); PH,URINE 6.5 (4.8-8.0); PROTEIN,URINE TRACE mg/dl (Neg); UROBILINOGEN,URINE 0.2 E.U/dL (0.2-1.0)
[2022-03-15 10:08] LABS: CLARITY,URINE SLIGHTLY CLOUDY (Clear); COLOR,URINE STRAW (Yellow); UA COLLECTION TYPE CLN CATCH MIDSTREAM
[2022-03-15 10:09] LABS: WBC,URINE TNTC /HPF (0-4)
[2022-03-15 10:10] LABS: BACTERIA,URINE 4+ /HPF (Neg); MUCUS STRANDS NONE SEEN /LPF (Neg); RBC,URINE 0-2 /HPF (0-2); SQUAMOUS EPITHELIAL CELL,UR FEW /LPF (FEW)
[2022-03-15] MEDS ORDERED: levoFLOXACIN-Levaquin 750MG/D5 150 ML IV ONE (10:35)
[2022-03-15] MEDS ORDERED: cephalexin 500mg capsule PO ONE (11:05)
[2022-03-15 12:08] VITALS: BP 125/65
[2022-03-15] MEDS ORDERED: CEPH-585 PO (12:51)
== END 2022-03-15 15:34 | disposition home or self-care (01) ==
LOC: ER 04:49
DX: N39.0 Urinary tract infection, site not specified (principal); E86.0 Dehydration; J44.9 Chronic obstructive pulmonary disease, unspecified; G89.29 Other chronic pain; Z88.6 Allergy status to analgesic agent; Z88.0 Allergy status to penicillin; Z91.041 Radiographic dye allergy status; Z88.5 Allergy status to narcotic agent; Z90.49 Acquired absence of other specified parts of digestive tract; Z90.710 Acquired absence of both cervix and uterus
CPT/HCPCS: 36415; 71045; 80053; 81001; 83735; 83880; 84484; 85007; 85025; 87088; 93005; 99285; A4353

== ENCOUNTER 2022-04-08 09:31 | Emergency (ER) | payer MEDICARE, OTHER ==
[~2022-04-08] VITALS: Ht 193 cm; Wt 86.4 kg
[2022-04-08 11:21] LABS: ALANINE AMINOTRANSFERASE 9 U/L (12-78); ALBUMIN 2.4 G/DL (3.4-5.0); ALBUMIN/GLOBULIN RATIO 0.6 (1.1-1.5); ALKALINE PHOSPHATASE 87 IU/L (46-116); ANION GAP 6 (8-16); ASPARTATE AMINO TRANSFERASE 11 U/L (10-37); BILIRUBIN,TOTAL 0.2 MG/DL (0.1-1.0); BLOOD UREA NITROGEN 21 MG/DL (7-18); BUN/CREATININE RATIO 19.6 (6.6-38.0); CALCIUM 8.5 MG/DL (8.5-10.1); CHLORIDE 108 MMOL/L (99-107); CREATININE 1.07 MG/DL (0.40-0.90); GLUCOSE 101 MG/DL (70-104); MAGNESIUM 2.1 MG/DL (1.5-2.4); POTASSIUM 4.5 MMOL/L (3.5-5.1); SODIUM 142 MMOL/L (135-145); TOTAL CARBON DIOXIDE 28.3 MMOL/L (24-32); TOTAL PROTEIN 6.7 G/DL (6.4-8.2); eGFR 50 ML/MIN
[2022-04-08 11:34] LABS: BASOPHILS % (AUTO) 0.8 % (0-1); EOSINOPHILS % (AUTO) 0 % (0-6); HEMATOCRIT 25.2 % (35.0-45.0); HEMOGLOBIN 7.9 g/dl (12.0-16.0); LYMPHOCYTES # (AUTO) 0.5 X10'3 (1.1-4.8); LYMPHOCYTES % (AUTO) 15.3 % (21-51); MEAN CORPUSCULAR HEMOGLOBIN 22.9 PG (27.0-31.0); MEAN CORPUSCULAR HGB CONC 31.4 g/dL (33.0-36.5); MEAN CORPUSCULAR VOLUME 72.8 FL (78-98); MEAN PLATELET VOLUME 7.9 FL (7.4-10.4); MONOCYTES # (AUTO) 0.4 X10'3 (0-0.9); MONOCYTES % (AUTO) 12.3 % (2-12); NEUTROPHILS # (AUTO) 2.5 X10'3 (1.8-7.7); NEUTROPHILS % (AUTO) 71.6 % (42-75); PLATELET COUNT 157 X10'3 (140-440); RED BLOOD COUNT 3.47 X10'6 (4.20-5.60); RED CELL DISTRIBUTION WIDTH 19.4 % (11.5-14.5); WHITE BLOOD COUNT 3.5 X10'3 (4.5-11.0)
[2022-04-08 11:46] VITALS: BP 106/67
[2022-04-08 12:10] LABS: ANISOCYTOSIS 2+; ELLIPTOCYTES 2+; MICROCYTOSIS 1+; PLATELET ESTIMATE NORMAL
[2022-04-08 12:11] LABS: HYPOCHROMASIA 1+; TEAR DROP CELLS 1+
== END 2022-04-08 12:15 | disposition left against medical advice (07) ==
LOC: ER 09:31
DX: T14.8XXA Other injury of unspecified body region, initial encounter (principal); X58.XXXA Exposure to other specified factors, initial encounter; Y93.89 Activity, other specified; Y92.89 Other specified places as the place of occurrence of the external cause; Y99.8 Other external cause status; I11.9 Hypertensive heart disease without heart failure; J44.9 Chronic obstructive pulmonary disease, unspecified; Z87.442 Personal history of urinary calculi; G89.29 Other chronic pain
CPT/HCPCS: 36415; 71045; 73600; 73620; 80053; 83605; 83735; 84145; 85008; 85025; 87040; 93005; 99285

== ENCOUNTER 2022-09-04 16:41 | Inpatient (IN) | payer OTHER, MEDICARE, MEDICAID ==
[~2022-09-04] VITALS: Ht 193 cm; Wt 86.4 kg
[2022-09-04] MEDS ORDERED: morphine 4 MG/ML inj SYRINge IV ONE ×2 (18:15→21:35)
[2022-09-04] MEDS ORDERED: normal saline 1000ML IV soln IVB ONE (18:15)
[2022-09-04 19:00] LABS: ALANINE AMINOTRANSFERASE 12 U/L (12-78); ALBUMIN 2.7 G/DL (3.4-5.0); ALBUMIN/GLOBULIN RATIO 0.6 (1.1-1.5); ALKALINE PHOSPHATASE 83 IU/L (46-116); ANION GAP 10 (8-16); ASPARTATE AMINO TRANSFERASE 16 U/L (10-37); BILIRUBIN,TOTAL 0.9 MG/DL (0.1-1.0); BLOOD UREA NITROGEN 21 MG/DL (7-18); BUN/CREATININE RATIO 17.5 (6.6-38.0); CALCIUM 8.5 MG/DL (8.5-10.1); CHLORIDE 101 MMOL/L (99-107); POTASSIUM 3.9 MMOL/L (3.5-5.1); SODIUM 137 MMOL/L (135-145); TOTAL CARBON DIOXIDE 26.4 MMOL/L (24-32); TOTAL PROTEIN 7.6 G/DL (6.4-8.2); eGFR 43 ML/MIN
[2022-09-04 19:17] LABS: GLUCOSE 135 MG/DL (70-104)
[2022-09-04 19:35] LABS: HEMATOCRIT 29.6 % (35.0-45.0); HEMOGLOBIN 9.3 g/dl (12.0-16.0); MEAN CORPUSCULAR HEMOGLOBIN 26.2 PG (27.0-31.0); MEAN CORPUSCULAR HGB CONC 31.5 g/dL (33.0-36.5); MEAN CORPUSCULAR VOLUME 83.1 FL (78-98); MEAN PLATELET VOLUME 7.7 FL (7.4-10.4); PLATELET COUNT 83 X10'3 (140-440); RED BLOOD COUNT 3.56 X10'6 (4.20-5.60); RED CELL DISTRIBUTION WIDTH 19.2 % (11.5-14.5); WHITE BLOOD COUNT 7.1 X10'3 (4.5-11.0)
[2022-09-04 19:45] LABS: CLARITY,URINE CLOUDY (Clear); COLOR,URINE AMBER (Yellow); GLUCOSE, URINE NEGATIVE (Neg); KETONES,URINE TRACE mg/dl (Neg); LEUKOCYTE ESTERASE ,URINE MODERATE (Neg); NITRITES, URINE NEGATIVE (Neg); OCCULT BLOOD,URINE SMALL (Neg); PH,URINE 8.5 (4.8-8.0); PROTEIN,URINE 100 mg/dl (Neg)
[2022-09-04 19:47] LABS: UA COLLECTION TYPE FOLEY CATH
[2022-09-04 20:02] LABS: BACTERIA,URINE 3+ /HPF (Neg)
[2022-09-04 20:03] LABS: MUCUS STRANDS NONE SEEN /LPF (Neg); RBC,URINE 0-2 /HPF (0-2); SQUAMOUS EPITHELIAL CELL,UR NONE SEEN /LPF (FEW); WBC,URINE 50-100 /HPF (0-4)
[2022-09-04 20:04] LABS: TRIPLE PHOSPHATE CRYST 2+ /HPF (NEGATIVE)
[2022-09-04 20:31] LABS: TOTAL CELLS COUNTED 100
[2022-09-04 20:32] LABS: ANISOCYTOSIS 2+; PLATELET ESTIMATE DECREASED
[2022-09-04 20:33] LABS: ELLIPTOCYTES 2+
[2022-09-04] MEDS ORDERED: cephalexin 500mg capsule PO ONE (21:00)
--- NOTE | 2022-09-04 21:56 | NUR ---
WOUND PHOTOS TAKEN AND PLACED IN CHART, DRESSINGS PLACED
[2022-09-04] MEDS ORDERED: ondansetron/PF 4mg/2ml inj IV PRN (23:10)
[2022-09-04] MEDS ORDERED: morphine 2 MG/ML inj. syringe IV PRN (23:10)
[2022-09-04] MEDS ORDERED: acetaminophen 325mg tablet PO PRN (23:10)
[2022-09-04] MEDS ORDERED: mag hydrox/Alum hydrox/simeth 30ml oral suspension PO PRN (23:10)
[2022-09-04] MEDS: dextrose 5%-1/2 normal saline 1,000 ML IV SCH (23:22)
[2022-09-04] MEDS: morphine 2 MG/ML inj. syringe IV PRN (23:25)
--- NOTE | 2022-09-04 23:53 | NUR ---
report given to receiving nurse on surgical floor, ore charger advises that it will be a while before evs can prepare the room for pt.
[2022-09-04] MEDS ORDERED: ATOR20TA66 PO (23:54)
--- NOTE | 2022-09-04 23:57 | NUR ---
REPORT RECEIVED FROM ER NURSE AND PATIENT IS WAITING TO BE TRANSPORTED. WILL ASSUME CARE WHEN PATIENT ARRIVES.
[2022-09-05 01:00] VITALS: BP 131/63
[2022-09-05 06:00] VITALS: BP 96/57
--- NOTE | 2022-09-05 06:29 | NUR ---
Problems reprioritized. Patient report given, questions answered & plan of care reviewed with MAUREEN Banks LVN.
[2022-09-05 06:31] LABS: BASOPHILS # (AUTO) 0.1 X10'3 (0-0.2); BASOPHILS % (AUTO) 0.9 % (0-1); EOSINOPHILS % (AUTO) 0.1 % (0-6); HEMATOCRIT 28.2 % (35.0-45.0); LYMPHOCYTES # (AUTO) 0.5 X10'3 (1.1-4.8); LYMPHOCYTES % (AUTO) 5.9 % (21-51); MEAN CORPUSCULAR HEMOGLOBIN 26.5 PG (27.0-31.0); MEAN CORPUSCULAR HGB CONC 32.1 g/dL (33.0-36.5); MEAN CORPUSCULAR VOLUME 82.5 FL (78-98); MEAN PLATELET VOLUME 7.6 FL (7.4-10.4); MONOCYTES # (AUTO) 0.5 X10'3 (0-0.9); MONOCYTES % (AUTO) 5.9 % (2-12); NEUTROPHILS # (AUTO) 6.8 X10'3 (1.8-7.7); NEUTROPHILS % (AUTO) 87.2 % (42-75); PLATELET COUNT 79 X10'3 (140-440); RED BLOOD COUNT 3.42 X10'6 (4.20-5.60); WHITE BLOOD COUNT 7.8 X10'3 (4.5-11.0)
[2022-09-05 06:39] LABS: ALBUMIN 2.4 G/DL (3.4-5.0); ANION GAP 6 (8-16); BLOOD UREA NITROGEN 16 MG/DL (7-18); CALCIUM 8.4 MG/DL (8.5-10.1); CHLORIDE 103 MMOL/L (99-107); CREATININE 0.94 MG/DL (0.40-0.90); GLUCOSE 141 MG/DL (70-104); POTASSIUM 3.5 MMOL/L (3.5-5.1); SODIUM 138 MMOL/L (135-145); TOTAL CARBON DIOXIDE 29.5 MMOL/L (24-32); eGFR 58 ML/MIN
[2022-09-05] MEDS: heparin, porcine 5000 units/ml vial SQ SCH ×2 (08:00→20:00)
[2022-09-05] MEDS ORDERED: vancomycin/NS 1 GM ADD-VANTAGE 250 ML IV SCH (08:00)
[2022-09-05] MEDS: docusate sod 100mg capsule PO SCH ×2 (09:02→20:53)
[2022-09-05] MEDS: atorvastatin 20mg tablet PO SCH (09:02)
[2022-09-05] MEDS: clopidogrel 75mg tablet PO SCH (09:03)
[2022-09-05] MEDS: morphine 2 MG/ML inj. syringe IV PRN (09:04)
[2022-09-05] MEDS: CefTRIAXone/D5W-Rocephin 1gm 50 ML IV SCH (09:04)
[2022-09-05] MEDS: dextrose 5%-1/2 normal saline 1,000 ML IV SCH ×2 (09:14→19:03)
[2022-09-05] MEDS: vancomycin/NS 1 GM ADD-VANTAGE 250 ML IV SCH ×2 (10:03→20:53)
--- NOTE | 2022-09-05 10:27 | NUR ---
Pt bagged belongings are being transferred to outdoor ambulance bay for isolation due to pt having bed bugs.
--- NOTE | 2022-09-05 10:28 | NUR ---
Pt bagged belongings are being transferred to outdoor ambulance bay for isolation due to pt having bed bugs
--- NOTE | 2022-09-05 13:29 | NUR ---
Delta Consult: Pt admit DX sacral decubitus, UTI, possible LE cellulitis, rheumatoid arthritis, anemia, and bed bugs per EMR. Delta 11 pending WOC assessment this admit. Will monitor for WOC notes and nutrition intervention needs; initial PO trends pending intake documentation this admit. Addendum: 09/05/22 at [address] Amended: Links added.
[2022-09-05 18:00] VITALS: BP 85/55
--- NOTE | 2022-09-05 18:15 | NUR ---
Patient in room [facility] 350. I have received report from Sola BACA and had the opportunity to ask questions and assume patient care.
--- NOTE | 2022-09-05 18:24 | NUR ---
Problems reprioritized. Patient report given, questions answered & plan of care reviewed with AMY STREETER.
[2022-09-05 22:00] VITALS: BP 89/48
--- NOTE | 2022-09-05 23:50 | NUR ---
promotional table spacer promotional table spacer Page Sent promotional table spacer PAGER ID: [phone] MESSAGE: 350B Copeland, Urine dark, barely 25cc this far. KENDRICK 89/48, Hr 100.May we give a bolus? Doretha [phone] (95 character message out of a maximum of 240)
[2022-09-06] MEDS: acetaminophen 325mg tablet PO PRN ×3 (00:08→21:22)
--- NOTE | 2022-09-06 00:15 | NUR ---
requested manual BP and to bladder scan. Bladder scan revealed 97cc only and manual BP on LUE was 100/50. Addendum: 09/06/22 at 0124 by Doretha Chand RN Patient did not receive a bolus at this time.
--- NOTE | 2022-09-06 01:16 | NUR ---
During bed bath, patient verbalized that she does not want to be DNR, but fall code. Will remove DNR band and inform dayshift.
[2022-09-06 04:08] LABS: BASOPHILS # (AUTO) 0.1 X10'3 (0-0.2); BASOPHILS % (AUTO) 1.4 % (0-1); EOSINOPHILS % (AUTO) 0.1 % (0-6); HEMATOCRIT 25.3 % (35.0-45.0); LYMPHOCYTES # (AUTO) 0.6 X10'3 (1.1-4.8); LYMPHOCYTES % (AUTO) 9.9 % (21-51); MEAN CORPUSCULAR HEMOGLOBIN 26.2 PG (27.0-31.0); MEAN CORPUSCULAR HGB CONC 31.6 g/dL (33.0-36.5); MEAN CORPUSCULAR VOLUME 82.9 FL (78-98); MEAN PLATELET VOLUME 7.8 FL (7.4-10.4); MONOCYTES # (AUTO) 0.4 X10'3 (0-0.9); NEUTROPHILS % (AUTO) 82.6 % (42-75); PLATELET COUNT 73 X10'3 (140-440); RED BLOOD COUNT 3.05 X10'6 (4.20-5.60); RED CELL DISTRIBUTION WIDTH 19.4 % (11.5-14.5)
[2022-09-06 04:22] LABS: ANION GAP 5 (8-16); BLOOD UREA NITROGEN 11 MG/DL (7-18); BUN/CREATININE RATIO 13.1 (6.6-38.0); CALCIUM 8.2 MG/DL (8.5-10.1); CHLORIDE 104 MMOL/L (99-107); CREATININE 0.84 MG/DL (0.40-0.90); GLUCOSE 157 MG/DL (70-104); POTASSIUM 3.1 MMOL/L (3.5-5.1); SODIUM 136 MMOL/L (135-145); TOTAL CARBON DIOXIDE 27.1 MMOL/L (24-32); eGFR 65 ML/MIN
[2022-09-06 04:28] LABS: % IRON SATURATION 10 % (11-46); IRON 16 UG/DL (49-151); TOTAL IRON BINDING CAPACITY 164 UG/DL (259-388)
[2022-09-06] MEDS: dextrose 5%-1/2 normal saline 1,000 ML IV SCH ×2 (05:10→15:10)
[2022-09-06 05:13] VITALS: BP 98/44
--- NOTE | 2022-09-06 05:13 | NUR ---
Patient stated that for pain she normally takes 1000mg tylenol at 0500, and 600mg of ibupfrofen at 0600, but has not had a regular pain medicine schedule since march of last year.
--- NOTE | 2022-09-06 05:46 | NUR ---
promotional table spacer promotional table spacer Page Sent promotional table spacer PAGER ID: [phone] MESSAGE: K is 3.1. Please may I have orders for electrolyte replacement.( K& Mg.) Thanks Doretha [phone] (90 character message out of a maximum of 240)
[2022-09-06 05:48] LABS: ANISOCYTOSIS 2+; ELLIPTOCYTES 2+; PLATELET ESTIMATE DECREASED
[2022-09-06] MEDS ORDERED: magnesium 4gm in 100ml NS 100 ML IV PRN (05:50)
[2022-09-06] MEDS ORDERED: magnesium Cl slow-release 64mg tablet PO PRN (05:50)
[2022-09-06] MEDS ORDERED: potassium Cl 40MEQ/1/2NS 520ml 520 ML IV PRN (05:50)
[2022-09-06] MEDS ORDERED: potassium Cl 20 mEq SR tablet PO PRN (05:50)
--- NOTE | 2022-09-06 06:30 | NUR ---
Problems reprioritized. Patient report given, questions answered & plan of care reviewed with Sola BACA.
--- NOTE | 2022-09-06 07:40 | NUR ---
PAGER ID: [phone] MESSAGE: Pt olaf Copeland RM 586Q pt is wanting to change her code status to full code mando [id number]
[2022-09-06] MEDS: heparin, porcine 5000 units/ml vial SQ SCH ×2 (08:00→20:00)
[2022-09-06] MEDS: K and/or MAG REPLACEMENT MC SCH ×2 (08:31→20:00)
[2022-09-06] MEDS: docusate sod 100mg capsule PO SCH ×2 (08:50→21:22)
[2022-09-06] MEDS: atorvastatin 20mg tablet PO SCH (08:50)
[2022-09-06] MEDS: clopidogrel 75mg tablet PO SCH (08:50)
[2022-09-06] MEDS: vancomycin/NS 1 GM ADD-VANTAGE 250 ML IV SCH ×2 (09:50→21:24)
[2022-09-06] MEDS: CefTRIAXone/D5W-Rocephin 1gm 50 ML IV SCH (09:50)
--- NOTE | 2022-09-06 10:44 | NUR ---
PAGER ID: [phone] MESSAGE: Pt olaf barton rm 350B pt manual BP of 90/45, would you like me to bolus? mando [id number]
[2022-09-06 11:00] VITALS: BP 82/40
[2022-09-06 11:15] VITALS: BP 90/45
--- NOTE | 2022-09-06 14:02 | NUR ---
PRESSURE ULCER EDUCATION: DEFINITION: A pressure ulcer is an area of skin that breaks down when you stay in one position too long. The constant pressure against the skin reduces the blood flow to that area and the affected tissue dies. CAUSES: "Being bedridden or in a wheelchair "Fragile skin "Having a chronic condition, such as diabetes or vascular disease "Inability to move certain parts of your body without assistance "Older age "Incontinence of urine or stool SYMPTOMS: "A reddened area that DOES NOT turn white when pressed on - this can be the beginning of a pressure ulcer "A blister, deep sore or a crater - these can be advanced pressure ulcers FIRST AID: "Relieve the pressure on this area "Keep the area clean and dry "Call your primary doctor if you see any of the above symptoms "DO NOT massage the area "DO NOT use a donut shaped or ring shaped pillow- these actually interfere with the blood flow and cause complications PREVENTION: "Check for pressure ulcers everyday "Change position at least every two hours to relieve pressure "Use items that help relieve pressure- pillows, sheepskin, foam padding, and powders. "Keep skin clean and dry "Eat healthy well balanced meals "Exercise daily IF YOU SEE ANY OF THESE SYMPTOMS WHILE IN THE HOSPITAL - TELL YOUR NURSE IMMEDIATELY. IF YOU SEE ANY OF THESE SYMPTOMS WHILE AT HOME OR HAVE ANY QUESTIONS OR CONCERNS ABOUT PRESSURE ULCERS - CALL YOUR PRIMARY DOCTOR IMMEDIATELY. Addendum: 09/06/22 at 1402 by Katerine Rivera RN Amended: Links added.
--- NOTE | 2022-09-06 16:12 | NUR ---
Initial: Pt admit DX sacral decubitus, UTI, possible LE cellulitis, rheumatoid arthritis, anemia, and bed bugs per EMR. Per WOC, pt w/ coccyx unstageable and R foot III PI's. Noted pt receiving D5/half NS at 100ml/hr providing additional 408 kcals/day. Pt refused first two heart healthy meals yesterday w/ 25-50% following two not meeting needs. RD paged MD regarding liberalizing to regular diet given poor initial meal acceptance and MVI for wound healing if agreeable. Recommend Ensure Plus High Protein TIDWM to assist meeting needs; MD notified. LBM 09/04 receiving routine colace per EMR. Will monitor for further PO trends and nutrition intervention needs. Rec: 1. liberalize to regular diet given poor initial meal acceptance; encourage PO 2. Ensure Plus High Protein TIDWM; pending MD verification in EMR 3. MVI supplementation for wound healing 4. routine bowel care 5. scaled wt this admit; subsequent weekly wts Addendum: 09/06/22 at [address] Amended: Links added.
--- NOTE | 2022-09-06 16:42 | NUR ---
PAGER ID: [phone] MESSAGE: Pt olaf barton rm 350E pt notified me of difficulty chewing, missing teeth, added mech soft to diet, mando [id number]
--- NOTE | 2022-09-06 18:33 | NUR ---
Problems reprioritized. Patient report given, questions answered & plan of care reviewed with benoit nuñez.
--- NOTE | 2022-09-06 19:23 | NUR ---
Agree with PHUONG's assessment and added my own findings. Addendum: 09/06/22 at 1924 by Shama Jeffers RN Amended: Links added.
[2022-09-06] MEDS ORDERED: VANCOMYCIN LEVEL IV ONE (19:30)
[2022-09-07] MEDS: dextrose 5%-1/2 normal saline 1,000 ML IV SCH ×2 (01:10→04:48)
[2022-09-07] MEDS: traMADol 50MG tablet PO PRN ×3 (03:57→22:55)
[2022-09-07] MEDS: acetaminophen 325mg tablet PO PRN ×2 (04:47→19:28)
[2022-09-07 06:24] LABS: BASOPHILS % (AUTO) 0.7 % (0-1); EOSINOPHILS % (AUTO) 0.1 % (0-6); HEMATOCRIT 24.9 % (35.0-45.0); HEMOGLOBIN 7.9 g/dl (12.0-16.0); LYMPHOCYTES # (AUTO) 0.5 X10'3 (1.1-4.8); LYMPHOCYTES % (AUTO) 12.9 % (21-51); MEAN CORPUSCULAR HEMOGLOBIN 26.2 PG (27.0-31.0); MEAN CORPUSCULAR VOLUME 82.1 FL (78-98); MEAN PLATELET VOLUME 8.1 FL (7.4-10.4); MONOCYTES # (AUTO) 0.2 X10'3 (0-0.9); MONOCYTES % (AUTO) 5.6 % (2-12); NEUTROPHILS # (AUTO) 2.8 X10'3 (1.8-7.7); NEUTROPHILS % (AUTO) 80.7 % (42-75); PLATELET COUNT 58 X10'3 (140-440); RED BLOOD COUNT 3.03 X10'6 (4.20-5.60); RED CELL DISTRIBUTION WIDTH 18.8 % (11.5-14.5); WHITE BLOOD COUNT 3.5 X10'3 (4.5-11.0)
--- NOTE | 2022-09-07 06:33 | NUR ---
received report from night nurse Assumed care of patient. Patient resting at this time. All safety measures in place and call light in reach. Will continue to monitor.
[2022-09-07 06:37] LABS: ALBUMIN 1.9 G/DL (3.4-5.0); ANION GAP 6 (8-16); BLOOD UREA NITROGEN 10 MG/DL (7-18); BUN/CREATININE RATIO 12.8 (6.6-38.0); CALCIUM 8.1 MG/DL (8.5-10.1); CHLORIDE 106 MMOL/L (99-107); CREATININE 0.78 MG/DL (0.40-0.90); SODIUM 138 MMOL/L (135-145); TOTAL CARBON DIOXIDE 25.9 MMOL/L (24-32); eGFR 71 ML/MIN
[2022-09-07 06:40] LABS: GLUCOSE 135 MG/DL (70-104)
[2022-09-07 07:03] LABS: ANISOCYTOSIS 2+; PLATELET ESTIMATE DECREASED
[2022-09-07] MEDS: potassium Cl 20 mEq SR tablet PO PRN ×4 (07:03→17:37)
[2022-09-07 07:04] LABS: ELLIPTOCYTES 2+
[2022-09-07] MEDS: CefTRIAXone/D5W-Rocephin 1gm 50 ML IV SCH (07:53)
[2022-09-07] MEDS: K and/or MAG REPLACEMENT MC SCH ×2 (08:00→20:00)
[2022-09-07] MEDS: heparin, porcine 5000 units/ml vial SQ SCH ×2 (08:00→20:00)
[2022-09-07] MEDS: vancomycin/NS 1 GM ADD-VANTAGE 250 ML IV SCH ×2 (08:00→19:28)
[2022-09-07] MEDS: clopidogrel 75mg tablet PO SCH (09:00)
[2022-09-07] MEDS: docusate sod 100mg capsule PO SCH ×2 (09:00→20:00)
[2022-09-07] MEDS: atorvastatin 20mg tablet PO SCH (09:01)
[2022-09-07 11:00] VITALS: BP 107/56
[2022-09-07] MEDS: levoFLOXACIN 500mg tablet PO SCH (15:01)
--- NOTE | 2022-09-07 17:08 | NUR ---
patient alert and resting in bed. All medications administered as ordered. New order for oral abx this shift and tolerated. No acute changes this shift. Will report to night nurse. All safety measures in place and call light in reach. Will continue to monitor.
[2022-09-07 18:00] VITALS: BP 95/59
[2022-09-07 22:00] VITALS: BP 125/72
[2022-09-08 06:16] LABS: ALBUMIN 1.8 G/DL (3.4-5.0); ANION GAP 3 (8-16); BLOOD UREA NITROGEN 6 MG/DL (7-18); CALCIUM 8.5 MG/DL (8.5-10.1); CHLORIDE 109 MMOL/L (99-107); CREATININE 0.75 MG/DL (0.40-0.90); POTASSIUM 4.2 MMOL/L (3.5-5.1); SODIUM 138 MMOL/L (135-145); TOTAL CARBON DIOXIDE 26.4 MMOL/L (24-32); eGFR 75 ML/MIN
[2022-09-08 06:21] LABS: GLUCOSE 98 MG/DL (70-104)
[2022-09-08 06:22] LABS: BASOPHILS % (AUTO) 0.8 % (0-1); EOSINOPHILS % (AUTO) 0 % (0-6); HEMATOCRIT 25.6 % (35.0-45.0); HEMOGLOBIN 8.1 g/dl (12.0-16.0); LYMPHOCYTES # (AUTO) 0.6 X10'3 (1.1-4.8); LYMPHOCYTES % (AUTO) 15.3 % (21-51); MEAN CORPUSCULAR HEMOGLOBIN 26.1 PG (27.0-31.0); MEAN CORPUSCULAR HGB CONC 31.4 g/dL (33.0-36.5); MEAN CORPUSCULAR VOLUME 83.1 FL (78-98); MEAN PLATELET VOLUME 8.4 FL (7.4-10.4); MONOCYTES # (AUTO) 0.2 X10'3 (0-0.9); MONOCYTES % (AUTO) 6.1 % (2-12); NEUTROPHILS # (AUTO) 2.8 X10'3 (1.8-7.7); NEUTROPHILS % (AUTO) 77.8 % (42-75); PLATELET COUNT 63 X10'3 (140-440); RED BLOOD COUNT 3.08 X10'6 (4.20-5.60); RED CELL DISTRIBUTION WIDTH 18.8 % (11.5-14.5); WHITE BLOOD COUNT 3.6 X10'3 (4.5-11.0)
--- NOTE | 2022-09-08 07:15 | NUR ---
Patient in room [facility] 350. I have received report from Geraldine STREETER and had the opportunity to ask questions and assume patient care.
[2022-09-08] MEDS: K and/or MAG REPLACEMENT MC SCH ×2 (08:00→20:00)
[2022-09-08 08:20] VITALS: BP 114/64
[2022-09-08] MEDS: vancomycin/NS 1 GM ADD-VANTAGE 250 ML IV SCH (09:37)
[2022-09-08] MEDS: docusate sod 100mg capsule PO SCH ×2 (09:38→19:44)
[2022-09-08] MEDS: atorvastatin 20mg tablet PO SCH (09:38)
[2022-09-08 10:00] VITALS: BP 129/53
[2022-09-08 10:25] LABS: ANISOCYTOSIS 2+; ELLIPTOCYTES 2+; PLATELET ESTIMATE DECREASED; TOTAL CELLS COUNTED 100
[2022-09-08 10:26] LABS: SCHISTOCYTES FEW
[2022-09-08] MEDS: clopidogrel 75mg tablet PO SCH (11:18)
[2022-09-08] MEDS: levoFLOXACIN 500mg tablet PO SCH (11:19)
--- NOTE | 2022-09-08 12:32 | NUR ---
Patient has been encouraged to allow assistance for Q2 reposition, at times patient will refuse. Education provided and reinforcement provided as needed. Patient able to reposition independently but does require some assistance and queing as patient prefers to lay on right side Addendum: 09/08/22 at 1236 by Carie Rich LVN Amended: Links added.
[2022-09-08] MEDS: LACTOSE-REDUCED FOOD 237ML LIQUID PO SCH ×2 (13:00→17:51)
[2022-09-08 14:00] VITALS: BP 126/68
--- NOTE | 2022-09-08 17:46 | NUR ---
I have reviewed and agree with all interventions, assessments performed and documented by PHUONG Darnell.
[2022-09-08 18:00] VITALS: BP 135/56
--- NOTE | 2022-09-08 18:38 | NUR ---
Problems reprioritized. Patient report given, questions answered & plan of care reviewed with Zahraa STREETER.
[2022-09-08] MEDS: traMADol 50MG tablet PO PRN (20:42)
[2022-09-08 22:00] VITALS: BP 109/54
[2022-09-09] MEDS: K and/or MAG REPLACEMENT MC SCH ×2 (06:42→20:00)
[2022-09-09 06:56] LABS: ANION GAP 6 (8-16); BLOOD UREA NITROGEN 6 MG/DL (7-18); BUN/CREATININE RATIO 8.3 (6.6-38.0); CALCIUM 8.6 MG/DL (8.5-10.1); CHLORIDE 103 MMOL/L (99-107); CREATININE 0.72 MG/DL (0.40-0.90); POTASSIUM 3.9 MMOL/L (3.5-5.1); SODIUM 136 MMOL/L (135-145); TOTAL CARBON DIOXIDE 27.4 MMOL/L (24-32); eGFR 78 ML/MIN
[2022-09-09 07:01] LABS: BASOPHILS % (AUTO) 1.4 % (0-1); EOSINOPHILS % (AUTO) 0.7 % (0-6); HEMATOCRIT 27.4 % (35.0-45.0); HEMOGLOBIN 8.7 g/dl (12.0-16.0); LYMPHOCYTES # (AUTO) 0.6 X10'3 (1.1-4.8); LYMPHOCYTES % (AUTO) 25.2 % (21-51); MEAN CORPUSCULAR HEMOGLOBIN 25.9 PG (27.0-31.0); MEAN CORPUSCULAR HGB CONC 31.8 g/dL (33.0-36.5); MEAN CORPUSCULAR VOLUME 81.5 FL (78-98); MEAN PLATELET VOLUME 8.3 FL (7.4-10.4); MONOCYTES # (AUTO) 0.1 X10'3 (0-0.9); MONOCYTES % (AUTO) 6.2 % (2-12); NEUTROPHILS # (AUTO) 1.6 X10'3 (1.8-7.7); NEUTROPHILS % (AUTO) 66.5 % (42-75); PLATELET COUNT 63 X10'3 (140-440); RED BLOOD COUNT 3.36 X10'6 (4.20-5.60); RED CELL DISTRIBUTION WIDTH 18.2 % (11.5-14.5); WHITE BLOOD COUNT 2.3 X10'3 (4.5-11.0)
[2022-09-09 07:09] LABS: GLUCOSE 94 MG/DL (70-104)
[2022-09-09 07:28] VITALS: BP 122/56
[2022-09-09] MEDS: LACTOSE-REDUCED FOOD 237ML LIQUID PO SCH ×3 (08:00→17:48)
[2022-09-09] MEDS: docusate sod 100mg capsule PO SCH ×2 (09:00→20:48)
[2022-09-09] MEDS: clopidogrel 75mg tablet PO SCH (09:00)
[2022-09-09] MEDS: atorvastatin 20mg tablet PO SCH (09:00)
[2022-09-09] MEDS ORDERED: pneumococcal 23-VAL P-sac vacc 25 mcg/0.5ml vial IMVAC ONE (09:55)
[2022-09-09] MEDS ORDERED: FLU VACC QS2022-23(6MOS UP)/PF 60 MCG/0.5 ML SYRINGE IMVAC ONE (09:55)
[2022-09-09 10:10] VITALS: BP 123/65
[2022-09-09] MEDS: levoFLOXACIN 500mg tablet PO SCH (10:34)
[2022-09-09 12:24] LABS: TOTAL CELLS COUNTED 50
[2022-09-09 12:26] LABS: ANISOCYTOSIS 2+; ELLIPTOCYTES 2+; PLATELET ESTIMATE DECREASED
[2022-09-09] MEDS: acetaminophen 325mg tablet PO PRN ×2 (13:06→20:48)
--- NOTE | 2022-09-09 13:47 | NUR ---
F/u 3/2: Pt PO remains poor ~25% avg heart healthy/EC7 diet not meeting needs. Noted Ensure Plus High Protein TIDWM verified by MD started WL today and PO 100% per RN. Pt seen by RD at bedside; pt confirms issues chopping own foods given hand deformities from rheumatoid arthritis though reports no issues chewing/swallowing. Pt is agreeable to chopping all foods, mashed potatoes BIDLD, and gravy w/ meats for ease of PO dietary notified. RD encouraged pt to request RD if nutrition questions/concerns this admit. RD paged MD regarding removal of heart healthy diet restriction if agreeable given poor PO trends this admit. LBM 09/08 receiving routine colace. Will monitor for PO/ONS acceptance and further nutrition intervention needs. Rec: 1. liberalize to regular/EC7/chop all diet given poor initial meal acceptance; encourage PO 2. honor pt food preferences :gravy w/ meats, mashed potatoes BIDLD 3. Ensure Plus High Protein TIDWM 4. MVI supplementation for wound healing 5. routine bowel care 6. scaled wt this admit; subsequent weekly wts Addendum: 09/09/22 at [address] Amended: Links added.
[2022-09-09 18:00] VITALS: BP 90/65
--- NOTE | 2022-09-09 19:00 | NUR ---
Patient in room [facility] 350. I have received report from SYL Hurst and had the opportunity to ask questions and assume patient care. Addendum: 09/10/22 at 0046 by Harriett Tenorio RN Amended: Links added.
[2022-09-09 22:00] VITALS: BP 102/50
[2022-09-10] MEDS: magnesium hydroxide 30ml (MOM) UD suspension PO PRN ×2 (01:42→20:54)
[2022-09-10] MEDS: traMADol 50MG tablet PO PRN ×2 (01:43→20:53)
--- NOTE | 2022-09-10 06:49 | NUR ---
Patient in room [facility] 350. I have received report from Harriett STREETER and had the opportunity to ask questions and assume patient care.
[2022-09-10] MEDS: K and/or MAG REPLACEMENT MC SCH ×2 (08:00→20:00)
[2022-09-10] MEDS: docusate sod 100mg capsule PO SCH ×2 (08:00→20:51)
[2022-09-10] MEDS: LACTOSE-REDUCED FOOD 237ML LIQUID PO SCH ×3 (08:40→18:04)
[2022-09-10] MEDS: clopidogrel 75mg tablet PO SCH (09:29)
[2022-09-10] MEDS: atorvastatin 20mg tablet PO SCH (09:30)
[2022-09-10 10:59] VITALS: BP 104/46
[2022-09-10] MEDS: levoFLOXACIN 500mg tablet PO SCH (12:20)
[2022-09-10 18:00] VITALS: BP 106/52
--- NOTE | 2022-09-10 18:15 | NUR ---
Patient in room [facility] 350. I have received report from SYL Duarte and had the opportunity to ask questions and assume patient care. Addendum: 09/10/22 at 1922 by Harriett Tenorio RN Amended: Links added.
--- NOTE | 2022-09-10 18:15 | NUR ---
Patient in room [facility] 350. I have received report from SYL Duarte and had the opportunity to ask questions and assume patient care. Addendum: 09/10/22 at 1920 by Harriett Tenorio RN Amended: Links added.
--- NOTE | 2022-09-10 18:30 | NUR ---
Problems reprioritized. Patient report given, questions answered & plan of care reviewed with Harriett STREETER.
[2022-09-10] MEDS ORDERED: ferrous sulfate ER tablet 140 MG TABLET.ER PO SCH (20:00)
[2022-09-10 22:00] VITALS: BP 113/65
[2022-09-11] MEDS: traMADol 50MG tablet PO PRN ×4 (00:49→20:48)
[2022-09-11 06:00] VITALS: BP 88/46
--- NOTE | 2022-09-11 06:27 | NUR ---
Problems reprioritized. Patient report given, questions answered & plan of care reviewed with SYL Duarte. Addendum: 09/11/22 at 0627 by Harriett Tenorio RN Amended: Links added.
--- NOTE | 2022-09-11 06:45 | NUR ---
Patient in room [facility] 350. I have received report from Harriett STREETER and had the opportunity to ask questions and assume patient care.
[2022-09-11] MEDS: K and/or MAG REPLACEMENT MC SCH ×2 (08:00→20:00)
[2022-09-11] MEDS: docusate sod 100mg capsule PO SCH ×2 (08:00→20:00)
[2022-09-11] MEDS: ascorbic acid 500mg tablet PO SCH ×2 (08:03→16:50)
[2022-09-11] MEDS: clopidogrel 75mg tablet PO SCH (08:03)
[2022-09-11] MEDS: atorvastatin 20mg tablet PO SCH (08:03)
[2022-09-11] MEDS: LACTOSE-REDUCED FOOD 237ML LIQUID PO SCH ×3 (08:08→18:01)
[2022-09-11] MEDS: FERROUS SULFATE 142 MG TABLET.ER (45mg elemental) PO SCH ×2 (08:52→20:43)
[2022-09-11 11:07] VITALS: BP 120/62
[2022-09-11] MEDS: levoFLOXACIN 500mg tablet PO SCH (11:29)
--- NOTE | 2022-09-11 15:06 | NUR ---
Per RN pt with poor PO intake of meals though with 100% PO intake of ONS. Given stage III PU to right foot and unstageable PU to coccyx pt would benefit from Elias smoothie BID, to be sent pending physician approval in EMR. Pt has been seen by OSMAR for food preferences and has RD contact information should she have any additional food preferences. Will continue to follow closely. Addendum: 09/11/22 at [address] Amended: Links added.
[2022-09-11] MEDS: JUVEN Smoothie Arginine/Glut./Ca2+Bmb (Juven 19.3pkt) 240ml cup PO SCH (17:30)
--- NOTE | 2022-09-11 18:30 | NUR ---
Patient in room [facility] 350. I have received report from ADRIEL and had the opportunity to ask questions and assume patient care.
--- NOTE | 2022-09-11 18:44 | NUR ---
Problems reprioritized. Patient report given, questions answered & plan of care reviewed with Selina STREETER.
[2022-09-11 19:00] VITALS: BP 104/52
[2022-09-11 23:00] VITALS: BP 108/61
[2022-09-12] MEDS: traMADol 50MG tablet PO PRN ×3 (00:47→17:54)
[2022-09-12 06:55] VITALS: BP 92/41
[2022-09-12] MEDS: JUVEN Smoothie Arginine/Glut./Ca2+Bmb (Juven 19.3pkt) 240ml cup PO SCH ×2 (07:30→17:30)
[2022-09-12] MEDS: docusate sod 100mg capsule PO SCH ×3 (08:00→20:00)
[2022-09-12] MEDS: K and/or MAG REPLACEMENT MC SCH ×2 (08:00→18:52)
[2022-09-12] MEDS: FERROUS SULFATE 142 MG TABLET.ER (45mg elemental) PO SCH ×2 (08:25→21:10)
[2022-09-12] MEDS: ascorbic acid 500mg tablet PO SCH ×2 (08:25→17:52)
[2022-09-12] MEDS: clopidogrel 75mg tablet PO SCH (08:26)
[2022-09-12] MEDS: atorvastatin 20mg tablet PO SCH (08:26)
[2022-09-12] MEDS: LACTOSE-REDUCED FOOD 237ML LIQUID PO SCH ×3 (08:27→18:00)
[2022-09-12 10:00] VITALS: BP 116/58
[2022-09-12 18:00] VITALS: BP 110/64
--- NOTE | 2022-09-12 18:25 | NUR ---
Problems reprioritized. Patient report given, questions answered & plan of care reviewed with Purnima STREETER.
[2022-09-12 22:00] VITALS: BP 101/45
[2022-09-13] MEDS: traMADol 50MG tablet PO PRN (02:38)
[2022-09-13 05:00] VITALS: BP 92/48
--- NOTE | 2022-09-13 06:12 | NUR ---
Problems reprioritized. Patient report given, questions answered & plan of care reviewed with SYL OCAMPO AND SYL REDDY.
--- NOTE | 2022-09-13 06:43 | NUR ---
Patient in room [facility] 350. I have received report from SYL Felton and had the opportunity to ask questions and assume patient care.
[2022-09-13] MEDS: JUVEN Smoothie Arginine/Glut./Ca2+Bmb (Juven 19.3pkt) 240ml cup PO SCH ×2 (07:30→17:30)
[2022-09-13] MEDS: K and/or MAG REPLACEMENT MC SCH ×2 (08:00→20:00)
--- NOTE | 2022-09-13 08:00 | NUR ---
Patient refusing to be Q2 turned and lays mostly on right side d/t pain. Education provided on importance of turning. Will continue to try and turn patient. Addendum: 09/13/22 at 1149 by Raine Oviedo LVN Amended: Links added.
[2022-09-13] MEDS: LACTOSE-REDUCED FOOD 237ML LIQUID PO SCH ×3 (08:21→18:00)
[2022-09-13] MEDS: atorvastatin 20mg tablet PO SCH (08:22)
[2022-09-13] MEDS: docusate sod 100mg capsule PO SCH (08:22)
[2022-09-13] MEDS: ascorbic acid 500mg tablet PO SCH ×2 (08:22→17:54)
[2022-09-13] MEDS: clopidogrel 75mg tablet PO SCH (08:22)
[2022-09-13] MEDS: FERROUS SULFATE 142 MG TABLET.ER (45mg elemental) PO SCH ×2 (08:22→19:34)
[2022-09-13 10:00] VITALS: BP 110/50
--- NOTE | 2022-09-13 11:27 | NUR ---
I have reviewed and agree with all interventions, assessments performed and documented by PHUONG OCAMPO.
--- NOTE | 2022-09-13 16:13 | NUR ---
Patient continues to refuse Q2 turning at this time. Educated patient of the importance of turning to maintain skin integrity and she verbalized understanding but still refused to be turned. Will continue to attempt repositioning.
[2022-09-13 18:00] VITALS: BP 110/60
--- NOTE | 2022-09-13 18:20 | NUR ---
Problems reprioritized. Patient report given, questions answered & plan of care reviewed with SYL Felton.
[2022-09-13 22:00] VITALS: BP 100/51
[2022-09-14 06:00] VITALS: BP 144/51
--- NOTE | 2022-09-14 06:03 | NUR ---
Problems reprioritized. Patient report given, questions answered & plan of care reviewed with SYL REDDY AND SYL OCAMPO..
--- NOTE | 2022-09-14 06:30 | NUR ---
Patient in room [facility] 350. I have received report from SYL Felton and had the opportunity to ask questions and assume patient care.
[2022-09-14] MEDS: K and/or MAG REPLACEMENT MC SCH ×2 (08:00→20:00)
[2022-09-14] MEDS: JUVEN Smoothie Arginine/Glut./Ca2+Bmb (Juven 19.3pkt) 240ml cup PO SCH ×2 (08:07→17:46)
[2022-09-14] MEDS: LACTOSE-REDUCED FOOD 237ML LIQUID PO SCH ×4 (08:07→22:44)
[2022-09-14] MEDS: FERROUS SULFATE 142 MG TABLET.ER (45mg elemental) PO SCH ×2 (08:08→22:42)
[2022-09-14] MEDS: ascorbic acid 500mg tablet PO SCH ×2 (08:08→17:45)
[2022-09-14] MEDS: atorvastatin 20mg tablet PO SCH (08:08)
[2022-09-14] MEDS: clopidogrel 75mg tablet PO SCH (08:08)
[2022-09-14] MEDS: traMADol 50MG tablet PO PRN (08:14)
--- NOTE | 2022-09-14 08:22 | NUR ---
Patient refusing to be q2 turned. Provided continuing education to patient regarding importance of turning for skin integrity, still refusing. Will continue to try and reposition patient. Addendum: 09/14/22 at 0823 by Raine Oviedo LVN Amended: Links added.
--- NOTE | 2022-09-14 08:23 | NUR ---
Leticia butler on patient. Addendum: 09/14/22 at 0823 by Raine Oviedo LVN Amended: Links added.
[2022-09-14 09:57] LABS: BASOPHILS % (AUTO) 1.1 % (0-1); EOSINOPHILS % (AUTO) 0 % (0-6); HEMATOCRIT 27.6 % (35.0-45.0); LYMPHOCYTES # (AUTO) 0.8 X10'3 (1.1-4.8); LYMPHOCYTES % (AUTO) 34.1 % (21-51); MEAN CORPUSCULAR HEMOGLOBIN 26.3 PG (27.0-31.0); MEAN CORPUSCULAR HGB CONC 32.5 g/dL (33.0-36.5); MEAN PLATELET VOLUME 7.7 FL (7.4-10.4); MONOCYTES # (AUTO) 0.3 X10'3 (0-0.9); MONOCYTES % (AUTO) 11.3 % (2-12); NEUTROPHILS # (AUTO) 1.3 X10'3 (1.8-7.7); NEUTROPHILS % (AUTO) 53.5 % (42-75); PLATELET COUNT 70 X10'3 (140-440); RED BLOOD COUNT 3.41 X10'6 (4.20-5.60); RED CELL DISTRIBUTION WIDTH 18.4 % (11.5-14.5); WHITE BLOOD COUNT 2.4 X10'3 (4.5-11.0)
[2022-09-14 10:12] LABS: ALBUMIN 2.3 G/DL (3.4-5.0); ANION GAP 6 (8-16); BLOOD UREA NITROGEN 21 MG/DL (7-18); BUN/CREATININE RATIO 23.9 (6.6-38.0); CALCIUM 8.9 MG/DL (8.5-10.1); CHLORIDE 100 MMOL/L (99-107); CREATININE 0.88 MG/DL (0.40-0.90); SODIUM 136 MMOL/L (135-145); TOTAL CARBON DIOXIDE 30.5 MMOL/L (24-32); eGFR 62 ML/MIN
[2022-09-14 10:13] LABS: GLUCOSE 114 MG/DL (70-104)
[2022-09-14 11:00] VITALS: BP 114/55
[2022-09-14 13:40] LABS: ANISOCYTOSIS 2+; PLATELET ESTIMATE DECREASED; TOTAL CELLS COUNTED 100
[2022-09-14 13:41] LABS: ELLIPTOCYTES 2+; HYPOCHROMASIA 1+; POLYCHROMASIA 1+; TOXIC VACUOLATION 2+
--- NOTE | 2022-09-14 17:46 | NUR ---
I have reviewed and agree with all interventions, assessments performed and documented by PHUONG OCAMPO.
[2022-09-14 18:00] VITALS: BP 110/56
--- NOTE | 2022-09-14 18:17 | NUR ---
Problems reprioritized. Patient report given, questions answered & plan of care reviewed with SYL Felton.
[2022-09-14 22:00] VITALS: BP 130/80
[2022-09-15] MEDS: traMADol 50MG tablet PO PRN ×2 (03:28→16:19)
--- NOTE | 2022-09-15 06:19 | NUR ---
Problems reprioritized. Patient report given, questions answered & plan of care reviewed with SYL SULLIVAN.
[2022-09-15 07:10] VITALS: BP 108/54
[2022-09-15] MEDS: atorvastatin 20mg tablet PO SCH (07:42)
[2022-09-15] MEDS: K and/or MAG REPLACEMENT MC SCH ×2 (07:42→20:00)
[2022-09-15] MEDS: FERROUS SULFATE 142 MG TABLET.ER (45mg elemental) PO SCH ×2 (07:42→20:00)
[2022-09-15] MEDS: JUVEN Smoothie Arginine/Glut./Ca2+Bmb (Juven 19.3pkt) 240ml cup PO SCH ×2 (07:42→17:44)
[2022-09-15] MEDS: clopidogrel 75mg tablet PO SCH (07:42)
[2022-09-15] MEDS: ascorbic acid 500mg tablet PO SCH ×2 (07:42→17:36)
[2022-09-15 12:00] VITALS: BP 104/50
[2022-09-15] MEDS: LACTOSE-REDUCED FOOD 237ML LIQUID PO SCH ×2 (13:59→18:07)
--- NOTE | 2022-09-15 15:27 | NUR ---
F/u 09/15: Pt PO meals remains poor ~14% avg recent meals w/ increasing refusals and ONS intake declining ~44% avg recent Ensure Plus High Protein TIDWM down from prior ~100%. Elias smoothie BIDBD started yesterday w/ pt refusing first two and PO ~25% third per EMR. Overall not meeting needs; pt seen by RD reports needs assistance opening ONS though admits decreased appetite. OSMAR d/w RN since independent w/ meals per EMR; per RN pt able to feed self can open Ensures though ONS have been opened for pt to assist intake. OSMAR paged MD regarding appetite stimulant and removal of heart healthy diet restriction given poor intake if agreeable. LBM 09/14 per EMR. Will monitor for further PO acceptance and nutrition intervention needs this admit. Rec: 1. liberalize to regular/EC7/chop all diet given poor initial meal acceptance; encourage PO 2. honor pt food preferences: no eggs, gravy w/ meats, mashed potatoes BIDLD 3. Ensure Plus High Protein TIDWM; Elias smoothie BIDBD; encourage PO 4. MVI supplementation for wound healing 5. consider appetite stimulant per physician discretion 6. routine bowel care 7. scaled wt this admit; subsequent weekly wts Addendum: 09/15/22 at [address] Amended: Links added.
[2022-09-15] MEDS ORDERED: magnesium hydroxide 30ml (MOM) UD suspension PO PRN (15:45)
[2022-09-15 18:00] VITALS: BP 89/45
--- NOTE | 2022-09-15 18:10 | NUR ---
Problems reprioritized. Patient report given, questions answered & plan of care reviewed with SYL Vital.
[2022-09-15] MEDS: docusate sod 100mg capsule PO SCH (20:00)
[2022-09-15 22:00] VITALS: BP 128/76
[2022-09-16] MEDS: traMADol 50MG tablet PO PRN ×2 (04:16→16:55)
[2022-09-16 06:41] LABS: BASOPHILS % (AUTO) 1.1 % (0-1); EOSINOPHILS % (AUTO) 0.1 % (0-6); HEMATOCRIT 27.6 % (35.0-45.0); HEMOGLOBIN 8.9 g/dl (12.0-16.0); LYMPHOCYTES # (AUTO) 1.2 X10'3 (1.1-4.8); LYMPHOCYTES % (AUTO) 33.3 % (21-51); MEAN CORPUSCULAR HEMOGLOBIN 26.3 PG (27.0-31.0); MEAN CORPUSCULAR HGB CONC 32.2 g/dL (33.0-36.5); MEAN CORPUSCULAR VOLUME 81.6 FL (78-98); MEAN PLATELET VOLUME 7.9 FL (7.4-10.4); MONOCYTES # (AUTO) 0.3 X10'3 (0-0.9); MONOCYTES % (AUTO) 8.5 % (2-12); NEUTROPHILS # (AUTO) 2.1 X10'3 (1.8-7.7); PLATELET COUNT 87 X10'3 (140-440); RED BLOOD COUNT 3.38 X10'6 (4.20-5.60); RED CELL DISTRIBUTION WIDTH 18.9 % (11.5-14.5); WHITE BLOOD COUNT 3.7 X10'3 (4.5-11.0)
[2022-09-16 07:07] LABS: ALANINE AMINOTRANSFERASE 14 U/L (12-78); ALBUMIN 2.5 G/DL (3.4-5.0); ALBUMIN/GLOBULIN RATIO 0.5 (1.1-1.5); ALKALINE PHOSPHATASE 75 IU/L (46-116); ANION GAP 5 (8-16); ASPARTATE AMINO TRANSFERASE 27 U/L (10-37); BILIRUBIN,TOTAL 0.6 MG/DL (0.1-1.0); BLOOD UREA NITROGEN 31 MG/DL (7-18); CALCIUM 8.7 MG/DL (8.5-10.1); CHLORIDE 101 MMOL/L (99-107); CREATININE 0.94 MG/DL (0.40-0.90); SODIUM 136 MMOL/L (135-145); TOTAL CARBON DIOXIDE 30.3 MMOL/L (24-32); TOTAL PROTEIN 7.7 G/DL (6.4-8.2); eGFR 57 ML/MIN
[2022-09-16 07:09] LABS: GLUCOSE 120 MG/DL (70-104)
[2022-09-16 07:30] VITALS: BP 100/51
[2022-09-16] MEDS: JUVEN Smoothie Arginine/Glut./Ca2+Bmb (Juven 19.3pkt) 240ml cup PO SCH ×2 (07:30→17:30)
[2022-09-16] MEDS: K and/or MAG REPLACEMENT MC SCH ×2 (08:00→20:00)
[2022-09-16] MEDS: LACTOSE-REDUCED FOOD 237ML LIQUID PO SCH ×3 (08:00→18:40)
[2022-09-16] MEDS: FERROUS SULFATE 142 MG TABLET.ER (45mg elemental) PO SCH ×2 (09:05→21:34)
[2022-09-16] MEDS: docusate sod 100mg capsule PO SCH ×2 (09:05→21:34)
[2022-09-16] MEDS: clopidogrel 75mg tablet PO SCH (09:05)
[2022-09-16] MEDS: atorvastatin 20mg tablet PO SCH (09:05)
[2022-09-16] MEDS: ascorbic acid 500mg tablet PO SCH ×2 (09:05→16:55)
[2022-09-16 10:45] LABS: ANISOCYTOSIS 2+; ELLIPTOCYTES 2+; PLATELET ESTIMATE DECREASED; TOTAL CELLS COUNTED 100
[2022-09-16 10:46] LABS: HYPOCHROMASIA 1+; POLYCHROMASIA 1+; SCHISTOCYTES FEW
[2022-09-16 10:47] LABS: TOXIC GRANULATION 1+; TOXIC VACUOLATION 1+
--- NOTE | 2022-09-16 10:56 | NUR ---
patients belongings located in ambulance bay lockers. in bag is nieto sweat pants, red long sleeve shirt, pink sweater, black shoes, dsouza jacket with cigarettes and 2 lighters. returned to patient was (1) $20 bill and (3) $1 bills, her wallet and keys. In my presence patient wrote a check for $950.00 to her friend Tiesha to pay her rent, she also sent home the arriola, wallet and keys with her friend Tiesha. Witness to the patient sending the items with her friend are myself and [facility]
[2022-09-16 12:30] VITALS: BP 120/60
--- NOTE | 2022-09-16 16:41 | NUR ---
patient is able to reposition herself, she favors right side. was able to successfully encourage her to switch to left side multiple times today independently.
[2022-09-16 18:00] VITALS: BP 122/56
--- NOTE | 2022-09-16 18:40 | NUR ---
Problems reprioritized. Patient report given, questions answered & plan of care reviewed with SYL Bello.
[2022-09-16 22:00] VITALS: BP 98/45
[2022-09-17 07:21] LABS: BASOPHILS % (AUTO) 1.2 % (0-1); EOSINOPHILS % (AUTO) 0.1 % (0-6); HEMATOCRIT 27.2 % (35.0-45.0); HEMOGLOBIN 8.8 g/dl (12.0-16.0); LYMPHOCYTES # (AUTO) 1.1 X10'3 (1.1-4.8); LYMPHOCYTES % (AUTO) 32.3 % (21-51); MEAN CORPUSCULAR HEMOGLOBIN 26.5 PG (27.0-31.0); MEAN CORPUSCULAR HGB CONC 32.5 g/dL (33.0-36.5); MEAN CORPUSCULAR VOLUME 81.5 FL (78-98); MEAN PLATELET VOLUME 7.5 FL (7.4-10.4); MONOCYTES # (AUTO) 0.3 X10'3 (0-0.9); MONOCYTES % (AUTO) 8.1 % (2-12); NEUTROPHILS # (AUTO) 1.9 X10'3 (1.8-7.7); NEUTROPHILS % (AUTO) 58.3 % (42-75); PLATELET COUNT 85 X10'3 (140-440); RED BLOOD COUNT 3.33 X10'6 (4.20-5.60); RED CELL DISTRIBUTION WIDTH 19.4 % (11.5-14.5); WHITE BLOOD COUNT 3.3 X10'3 (4.5-11.0)
[2022-09-17 07:54] LABS: ALANINE AMINOTRANSFERASE 12 U/L (12-78); ALBUMIN 2.6 G/DL (3.4-5.0); ALBUMIN/GLOBULIN RATIO 0.5 (1.1-1.5); ALKALINE PHOSPHATASE 75 IU/L (46-116); ANION GAP 4 (8-16); ASPARTATE AMINO TRANSFERASE 24 U/L (10-37); BILIRUBIN,TOTAL 0.5 MG/DL (0.1-1.0); BLOOD UREA NITROGEN 32 MG/DL (7-18); BUN/CREATININE RATIO 34.8 (6.6-38.0); CALCIUM 8.9 MG/DL (8.5-10.1); CHLORIDE 102 MMOL/L (99-107); CREATININE 0.92 MG/DL (0.40-0.90); POTASSIUM 3.9 MMOL/L (3.5-5.1); SODIUM 136 MMOL/L (135-145); TOTAL CARBON DIOXIDE 30.4 MMOL/L (24-32); TOTAL PROTEIN 7.7 G/DL (6.4-8.2); eGFR 59 ML/MIN
[2022-09-17] MEDS: LACTOSE-REDUCED FOOD 237ML LIQUID PO SCH ×5 (08:00→20:22)
[2022-09-17] MEDS: K and/or MAG REPLACEMENT MC SCH ×2 (08:00→20:00)
[2022-09-17] MEDS: atorvastatin 20mg tablet PO SCH (08:01)
[2022-09-17] MEDS: FERROUS SULFATE 142 MG TABLET.ER (45mg elemental) PO SCH ×2 (08:01→20:25)
[2022-09-17] MEDS: clopidogrel 75mg tablet PO SCH (08:01)
[2022-09-17] MEDS: docusate sod 100mg capsule PO SCH ×2 (08:01→20:25)
[2022-09-17] MEDS: ascorbic acid 500mg tablet PO SCH ×2 (08:01→17:30)
[2022-09-17 08:02] LABS: GLUCOSE 131 MG/DL (70-104)
[2022-09-17] MEDS: traMADol 50MG tablet PO PRN ×2 (08:03→13:59)
[2022-09-17] MEDS: JUVEN Smoothie Arginine/Glut./Ca2+Bmb (Juven 19.3pkt) 240ml cup PO SCH ×2 (08:05→17:30)
[2022-09-17 09:59] LABS: ANISOCYTOSIS 2+; BANDS% (MANUAL) 7 % (0-10); HYPOCHROMASIA 1+; LYMPHOCYTES % (MANUAL) 38 % (21-51); MONOCYTES % (MANUAL) 2 % (2-12); NEUTROPHILS % (MANUAL) 53 % (42-75); PLATELET ESTIMATE DECREASED; POLYCHROMASIA 1+; TOTAL CELLS COUNTED 100; TOXIC GRANULATION 1+; TOXIC VACUOLATION 1+
[2022-09-17 10:00] VITALS: BP 106/39
[2022-09-17 10:00] LABS: ELLIPTOCYTES 2+; SCHISTOCYTES FEW
--- NOTE | 2022-09-17 16:00 | NUR ---
patient refused wound care. attempted again after pain medications given, refused again. will try again later.
[2022-09-17 18:00] VITALS: BP 109/57
--- NOTE | 2022-09-17 18:24 | NUR ---
Problems reprioritized. Patient report given, questions answered & plan of care reviewed with SYL Gordon.
[2022-09-18] MEDS: LACTOSE-REDUCED FOOD 237ML LIQUID PO SCH ×2 (00:26→01:32)
[2022-09-18 05:00] VITALS: BP 104/53
[2022-09-18] MEDS: traMADol 50MG tablet PO PRN ×3 (07:09→16:06)
[2022-09-18] MEDS: JUVEN Smoothie Arginine/Glut./Ca2+Bmb (Juven 19.3pkt) 240ml cup PO SCH ×2 (07:30→17:30)
[2022-09-18] MEDS: K and/or MAG REPLACEMENT MC SCH ×2 (08:00→19:15)
[2022-09-18 08:09] LABS: EOSINOPHILS % (AUTO) 0.1 % (0-6); HEMATOCRIT 29.5 % (35.0-45.0); HEMOGLOBIN 9.4 g/dl (12.0-16.0); LYMPHOCYTES # (AUTO) 0.6 X10'3 (1.1-4.8); LYMPHOCYTES % (AUTO) 24.5 % (21-51); MEAN CORPUSCULAR HEMOGLOBIN 26.1 PG (27.0-31.0); MEAN CORPUSCULAR HGB CONC 31.9 g/dL (33.0-36.5); MEAN CORPUSCULAR VOLUME 81.9 FL (78-98); MEAN PLATELET VOLUME 7.7 FL (7.4-10.4); MONOCYTES # (AUTO) 0.2 X10'3 (0-0.9); MONOCYTES % (AUTO) 6.4 % (2-12); NEUTROPHILS # (AUTO) 1.7 X10'3 (1.8-7.7); PLATELET COUNT 82 X10'3 (140-440); RED CELL DISTRIBUTION WIDTH 19.1 % (11.5-14.5); WHITE BLOOD COUNT 2.6 X10'3 (4.5-11.0)
[2022-09-18 08:27] LABS: ALANINE AMINOTRANSFERASE 14 U/L (12-78); ALBUMIN 2.7 G/DL (3.4-5.0); ALBUMIN/GLOBULIN RATIO 0.5 (1.1-1.5); ALKALINE PHOSPHATASE 78 IU/L (46-116); ANION GAP 8 (8-16); ASPARTATE AMINO TRANSFERASE 22 U/L (10-37); BILIRUBIN,TOTAL 0.6 MG/DL (0.1-1.0); BLOOD UREA NITROGEN 27 MG/DL (7-18); BUN/CREATININE RATIO 28.1 (6.6-38.0); CALCIUM 8.9 MG/DL (8.5-10.1); CHLORIDE 101 MMOL/L (99-107); CREATININE 0.96 MG/DL (0.40-0.90); POTASSIUM 3.7 MMOL/L (3.5-5.1); SODIUM 137 MMOL/L (135-145); TOTAL CARBON DIOXIDE 28.5 MMOL/L (24-32); TOTAL PROTEIN 7.9 G/DL (6.4-8.2); eGFR 56 ML/MIN
[2022-09-18 08:28] LABS: GLUCOSE 147 MG/DL (70-104)
[2022-09-18 08:39] LABS: ANISOCYTOSIS 2+; PLATELET ESTIMATE DECREASED; TOTAL CELLS COUNTED 100
[2022-09-18 08:40] LABS: ELLIPTOCYTES 2+; HYPOCHROMASIA 1+; POLYCHROMASIA FEW; SCHISTOCYTES FEW
[2022-09-18 08:41] LABS: TOXIC GRANULATION 1+; TOXIC VACUOLATION 1+
[2022-09-18] MEDS: FERROUS SULFATE 142 MG TABLET.ER (45mg elemental) PO SCH ×2 (09:21→19:14)
[2022-09-18] MEDS: ascorbic acid 500mg tablet PO SCH ×2 (09:21→17:49)
[2022-09-18] MEDS: clopidogrel 75mg tablet PO SCH (09:22)
[2022-09-18] MEDS: docusate sod 100mg capsule PO SCH ×2 (09:22→19:12)
[2022-09-18] MEDS: atorvastatin 20mg tablet PO SCH (09:22)
[2022-09-18 10:00] VITALS: BP 124/65
--- NOTE | 2022-09-18 18:38 | NUR ---
SECURITY FIELD SUPERVISOR documentation: I have reviewed and agree with all interventions, assessments performed and documented by Concepción Parsons LVN .
[2022-09-19 06:00] VITALS: BP 113/54
[2022-09-19 06:21] LABS: BASOPHILS % (AUTO) 0.8 % (0-1); EOSINOPHILS % (AUTO) 0.2 % (0-6); LYMPHOCYTES # (AUTO) 0.9 X10'3 (1.1-4.8); LYMPHOCYTES % (AUTO) 31.4 % (21-51); MEAN CORPUSCULAR HEMOGLOBIN 26.4 PG (27.0-31.0); MEAN CORPUSCULAR VOLUME 82.6 FL (78-98); MONOCYTES # (AUTO) 0.3 X10'3 (0-0.9); MONOCYTES % (AUTO) 9.6 % (2-12); NEUTROPHILS # (AUTO) 1.7 X10'3 (1.8-7.7); PLATELET COUNT 86 X10'3 (140-440); RED BLOOD COUNT 3.39 X10'6 (4.20-5.60); RED CELL DISTRIBUTION WIDTH 19.6 % (11.5-14.5); WHITE BLOOD COUNT 2.9 X10'3 (4.5-11.0)
[2022-09-19 06:42] LABS: ALANINE AMINOTRANSFERASE 13 U/L (12-78); ALBUMIN 2.6 G/DL (3.4-5.0); ALBUMIN/GLOBULIN RATIO 0.5 (1.1-1.5); ALKALINE PHOSPHATASE 76 IU/L (46-116); ANION GAP 4 (8-16); ASPARTATE AMINO TRANSFERASE 21 U/L (10-37); BILIRUBIN,TOTAL 0.5 MG/DL (0.1-1.0); BLOOD UREA NITROGEN 28 MG/DL (7-18); BUN/CREATININE RATIO 31.5 (6.6-38.0); CALCIUM 8.9 MG/DL (8.5-10.1); CHLORIDE 102 MMOL/L (99-107); CREATININE 0.89 MG/DL (0.40-0.90); POTASSIUM 4.2 MMOL/L (3.5-5.1); SODIUM 137 MMOL/L (135-145); TOTAL CARBON DIOXIDE 31.5 MMOL/L (24-32); TOTAL PROTEIN 7.9 G/DL (6.4-8.2); eGFR 61 ML/MIN
[2022-09-19 06:44] LABS: GLUCOSE 119 MG/DL (70-104)
--- NOTE | 2022-09-19 07:02 | NUR ---
Patient in room [facility]. I have received report from SYL Gordon and had the opportunity to ask questions and assume patient care.
[2022-09-19 07:39] LABS: ANISOCYTOSIS 2+; HYPOCHROMASIA 1+; PLATELET ESTIMATE DECREASED; POLYCHROMASIA FEW; TOTAL CELLS COUNTED 100
[2022-09-19 07:40] LABS: ELLIPTOCYTES 2+
[2022-09-19 07:42] LABS: SCHISTOCYTES FEW
[2022-09-19 07:44] LABS: TOXIC GRANULATION 1+; TOXIC VACUOLATION 1+
[2022-09-19] MEDS: JUVEN Smoothie Arginine/Glut./Ca2+Bmb (Juven 19.3pkt) 240ml cup PO SCH ×2 (08:11→17:42)
[2022-09-19] MEDS: K and/or MAG REPLACEMENT MC SCH ×2 (08:11→20:00)
[2022-09-19] MEDS: LACTOSE-REDUCED FOOD 237ML LIQUID PO SCH ×3 (08:11→18:24)
[2022-09-19] MEDS: FERROUS SULFATE 142 MG TABLET.ER (45mg elemental) PO SCH ×2 (08:12→20:49)
[2022-09-19] MEDS: clopidogrel 75mg tablet PO SCH (08:12)
[2022-09-19] MEDS: docusate sod 100mg capsule PO SCH ×2 (08:12→20:49)
[2022-09-19] MEDS: ascorbic acid 500mg tablet PO SCH ×2 (08:12→17:37)
[2022-09-19] MEDS: atorvastatin 20mg tablet PO SCH (08:12)
[2022-09-19] MEDS: traMADol 50MG tablet PO PRN (08:13)
--- NOTE | 2022-09-19 09:36 | NUR ---
Patient refusing fox boots at this time. Addendum: 09/19/22 at 0937 by Raine Back LVN, LVN Amended: Links added.
[2022-09-19 10:00] VITALS: BP 109/52
--- NOTE | 2022-09-19 13:55 | NUR ---
I have reviewed and agree with all interventions, assessments performed and documented by PHUONG OCAMPO.
[2022-09-19 18:00] VITALS: BP 102/49
--- NOTE | 2022-09-19 18:21 | NUR ---
Problems reprioritized. Patient report given, questions answered & plan of care reviewed with SYL Caro.
[2022-09-19 22:00] VITALS: BP 112/60
[2022-09-20 06:00] VITALS: BP 88/48
--- NOTE | 2022-09-20 06:14 | NUR ---
Problems reprioritized. Patient report given, questions answered & plan of care reviewed with SYL OCAMPO. Addendum: 09/20/22 at 0616 by Vania Mortensen RN PHUONG OCAMPO
--- NOTE | 2022-09-20 06:17 | NUR ---
Patient in room [facility] 350. I have received report from SYL Caro and had the opportunity to ask questions and assume patient care.
[2022-09-20 06:43] LABS: BASOPHILS % (AUTO) 0.6 % (0-1); EOSINOPHILS % (AUTO) 0.1 % (0-6); HEMOGLOBIN 8.6 g/dl (12.0-16.0); LYMPHOCYTES # (AUTO) 0.9 X10'3 (1.1-4.8); LYMPHOCYTES % (AUTO) 29.5 % (21-51); MEAN CORPUSCULAR HEMOGLOBIN 26.1 PG (27.0-31.0); MEAN CORPUSCULAR HGB CONC 31.6 g/dL (33.0-36.5); MEAN CORPUSCULAR VOLUME 82.5 FL (78-98); MEAN PLATELET VOLUME 8.2 FL (7.4-10.4); MONOCYTES # (AUTO) 0.3 X10'3 (0-0.9); MONOCYTES % (AUTO) 9.2 % (2-12); NEUTROPHILS # (AUTO) 1.8 X10'3 (1.8-7.7); NEUTROPHILS % (AUTO) 60.6 % (42-75); PLATELET COUNT 81 X10'3 (140-440); RED BLOOD COUNT 3.28 X10'6 (4.20-5.60); RED CELL DISTRIBUTION WIDTH 19.3 % (11.5-14.5); WHITE BLOOD COUNT 2.9 X10'3 (4.5-11.0)
--- NOTE | 2022-09-20 06:50 | NUR ---
Patients BP was 86/43 with machine and 88/48 manual. Asymptomatic, will continue to monitor.
[2022-09-20 07:00] LABS: ALANINE AMINOTRANSFERASE 12 U/L (12-78); ALBUMIN 2.5 G/DL (3.4-5.0); ALBUMIN/GLOBULIN RATIO 0.5 (1.1-1.5); ALKALINE PHOSPHATASE 69 IU/L (46-116); ANION GAP 5 (8-16); ASPARTATE AMINO TRANSFERASE 22 U/L (10-37); BILIRUBIN,TOTAL 0.6 MG/DL (0.1-1.0); BLOOD UREA NITROGEN 28 MG/DL (7-18); BUN/CREATININE RATIO 31.8 (6.6-38.0); CALCIUM 8.7 MG/DL (8.5-10.1); CHLORIDE 102 MMOL/L (99-107); CREATININE 0.88 MG/DL (0.40-0.90); POTASSIUM 3.8 MMOL/L (3.5-5.1); SODIUM 137 MMOL/L (135-145); TOTAL CARBON DIOXIDE 30.3 MMOL/L (24-32); TOTAL PROTEIN 7.5 G/DL (6.4-8.2); eGFR 62 ML/MIN
--- NOTE | 2022-09-20 07:00 | NUR ---
Patient refusing fox boots Addendum: 09/20/22 at 1631 by Raine Back LVN, LVN Amended: Links added.
[2022-09-20 07:20] LABS: GLUCOSE 108 MG/DL (70-104)
[2022-09-20] MEDS: JUVEN Smoothie Arginine/Glut./Ca2+Bmb (Juven 19.3pkt) 240ml cup PO SCH ×2 (07:30→18:04)
[2022-09-20 08:39] LABS: TOTAL CELLS COUNTED 100
[2022-09-20] MEDS: docusate sod 100mg capsule PO SCH ×2 (08:39→19:39)
[2022-09-20] MEDS: ascorbic acid 500mg tablet PO SCH ×2 (08:39→18:04)
[2022-09-20] MEDS: FERROUS SULFATE 142 MG TABLET.ER (45mg elemental) PO SCH ×2 (08:39→19:39)
[2022-09-20] MEDS: atorvastatin 20mg tablet PO SCH (08:39)
[2022-09-20] MEDS: LACTOSE-REDUCED FOOD 237ML LIQUID PO SCH ×3 (08:39→18:04)
[2022-09-20] MEDS: traMADol 50MG tablet PO PRN ×2 (08:40→19:40)
[2022-09-20] MEDS: clopidogrel 75mg tablet PO SCH (08:40)
[2022-09-20] MEDS: K and/or MAG REPLACEMENT MC SCH ×2 (08:42→19:39)
[2022-09-20 08:43] LABS: NEUTROPHILS % (MANUAL) 50 % (42-75)
[2022-09-20 08:44] LABS: ANISOCYTOSIS 2+; ELLIPTOCYTES 2+; HYPOCHROMASIA 1+; PLATELET ESTIMATE DECREASED
[2022-09-20 08:45] LABS: TOXIC VACUOLATION 1+
--- NOTE | 2022-09-20 09:51 | NUR ---
Patient refusing q2 turns at this time. Continues to favor right side. Educated patient on importance of turning to offload pressure. Patient verbalizes understanding and cotinues to refuse. Will continue to try and reposition patient. Addendum: 09/20/22 at 0955 by Raine Back LVN, LVN Amended: Links added.
--- NOTE | 2022-09-20 09:54 | NUR ---
Patient refusing to wear fox boots at this time due to discomfort. Education provided on importance of wearing boots to relieve pressure on heels and prevent bed sores. Patient verbalized understanding and continues to refuse. Will continue to try and get patient to float heels with pillows. Addendum: 09/20/22 at 0955 by Raine Back LVN, LVN Amended: Links added.
[2022-09-20 10:00] VITALS: BP 90/42
[2022-09-20] MEDS ORDERED: normal saline 1000ml 1,000 ML IV ONE (12:40)
--- NOTE | 2022-09-20 15:53 | NUR ---
PAGER ID: [phone] MESSAGE: Colleen Copeland Room 350B. Patient pulled out IV during bolus. Refusing to have another placed. Current BP 96/44. Please advise. Thank you, Raine [phone].
--- NOTE | 2022-09-20 16:58 | NUR ---
F/u 09/20: Pt PO remains poor ~15% avg meals, ~56% avg Ensure Plus High Protein TIDWM, and ~30% Elias smoothie BIDBD w/ continued refusals of meals/ONS. Currently meeting ~49% kcal, and ~54% protein minimum estimated needs. OSMAR paged MD again regarding removal of heart healthy diet restriction in addition to appetite stimulant given prolonged poor intake LOS 18 days if agreeable. Given severe weakness and poor intake pt meets severe malnutrition criteria; MD notified. Noted pt refusing care frequently pulled out IV refusing new one per EMR; likely would not accept NG for EN given behavior. LBM 09/19 receiving routine colace. Limited further nutrition interventions at this time; will continue to follow. Rec: 1. liberalize to regular/EC7/chop all diet given poor initial meal acceptance; encourage PO 2. honor pt food preferences: no eggs, gravy w/ meats, mashed potatoes BIDLD 3. Ensure Plus High Protein TIDWM; Elias smoothie BIDBD; encourage PO 4. MVI supplementation for wound healing 5. consider appetite stimulant per physician discretion 6. routine bowel care 7. scaled wt this admit; subsequent weekly wts Addendum: 09/20/22 at [address] Amended: Links added.
[2022-09-20 18:00] VITALS: BP 96/44
--- NOTE | 2022-09-20 18:22 | NUR ---
Problems reprioritized. Patient report given, questions answered & plan of care reviewed with SYL Caro.
[2022-09-20 22:00] VITALS: BP 109/53
[2022-09-21] MEDS: traMADol 50MG tablet PO PRN ×2 (01:33→08:06)
--- NOTE | 2022-09-21 06:09 | NUR ---
Problems reprioritized. Patient report given, questions answered & plan of care reviewed with PHUONG Ni.
--- NOTE | 2022-09-21 06:37 | NUR ---
Patient in room [facility] 350. I have received report from SYL Caro and had the opportunity to ask questions and assume patient care.
[2022-09-21] MEDS: JUVEN Smoothie Arginine/Glut./Ca2+Bmb (Juven 19.3pkt) 240ml cup PO SCH ×2 (07:55→17:30)
[2022-09-21] MEDS: K and/or MAG REPLACEMENT MC SCH ×2 (08:00→20:00)
[2022-09-21] MEDS: LACTOSE-REDUCED FOOD 237ML LIQUID PO SCH ×4 (08:01→19:21)
[2022-09-21] MEDS: docusate sod 100mg capsule PO SCH ×2 (08:05→19:21)
[2022-09-21] MEDS: clopidogrel 75mg tablet PO SCH (08:06)
[2022-09-21] MEDS: FERROUS SULFATE 142 MG TABLET.ER (45mg elemental) PO SCH ×2 (08:06→19:20)
[2022-09-21] MEDS: atorvastatin 20mg tablet PO SCH (08:06)
[2022-09-21] MEDS: ascorbic acid 500mg tablet PO SCH ×2 (08:06→17:16)
--- NOTE | 2022-09-21 13:20 | NUR ---
Patient refusing at this time. Addendum: 09/21/22 at 1320 by Raine Back LVN, LVN Amended: Links added.
--- NOTE | 2022-09-21 17:34 | NUR ---
I have reviewed and agree with all interventions, assessments performed and documented by PHUONG OCAMPO.
--- NOTE | 2022-09-21 18:32 | NUR ---
Problems reprioritized. Patient report given, questions answered & plan of care reviewed with SYL Caro.
[2022-09-21 19:31] VITALS: BP 105/58
[2022-09-21 22:00] VITALS: BP 100/44
--- NOTE | 2022-09-22 06:24 | NUR ---
Problems reprioritized. Patient report given, questions answered & plan of care reviewed with PHUONG MERIDA.
[2022-09-22] MEDS: JUVEN Smoothie Arginine/Glut./Ca2+Bmb (Juven 19.3pkt) 240ml cup PO SCH ×2 (07:31→17:32)
[2022-09-22] MEDS: atorvastatin 20mg tablet PO SCH (08:22)
[2022-09-22] MEDS: docusate sod 100mg capsule PO SCH ×2 (08:22→20:36)
[2022-09-22] MEDS: K and/or MAG REPLACEMENT MC SCH ×2 (08:22→20:00)
[2022-09-22] MEDS: clopidogrel 75mg tablet PO SCH (08:22)
[2022-09-22] MEDS: FERROUS SULFATE 142 MG TABLET.ER (45mg elemental) PO SCH ×2 (08:22→20:36)
[2022-09-22] MEDS: ascorbic acid 500mg tablet PO SCH ×2 (08:23→17:30)
[2022-09-22 11:00] VITALS: BP 114/60
[2022-09-22] MEDS: LACTOSE-REDUCED FOOD 237ML LIQUID PO SCH ×2 (12:21→17:32)
--- NOTE | 2022-09-22 15:35 | NUR ---
PAGER ID: [phone] MESSAGE: re: 350B Min INTERIAON is recommending negative pressure tx for wound ie: Wound vac. Thanks, Zahra
--- NOTE | 2022-09-22 16:00 | NUR ---
I have reviewed and agree with interventions, assessments and documentation by PHUONG Almodovar.
[2022-09-22 18:00] VITALS: BP 90/48
[2022-09-22 22:00] VITALS: BP 98/57
[2022-09-23 05:34] VITALS: BP 93/41
--- NOTE | 2022-09-23 06:26 | NUR ---
Problems reprioritized. Patient report given, questions answered & plan of care reviewed with SYL MERIDA. Addendum: 09/23/22 at 0636 by Purnima Blandon RN PHUONG MERIDA
--- NOTE | 2022-09-23 06:27 | NUR ---
Patient in room [facility] 350B I have received report from Purnima STREETER and had the opportunity to ask questions and assume patient care.
[2022-09-23] MEDS: JUVEN Smoothie Arginine/Glut./Ca2+Bmb (Juven 19.3pkt) 240ml cup PO SCH ×2 (07:49→17:44)
[2022-09-23] MEDS: LACTOSE-REDUCED FOOD 237ML LIQUID PO SCH ×3 (08:00→18:03)
[2022-09-23] MEDS: K and/or MAG REPLACEMENT MC SCH ×2 (08:00→20:00)
[2022-09-23] MEDS: ascorbic acid 500mg tablet PO SCH ×2 (08:30→17:44)
[2022-09-23] MEDS: FERROUS SULFATE 142 MG TABLET.ER (45mg elemental) PO SCH ×2 (09:32→20:35)
[2022-09-23] MEDS: docusate sod 100mg capsule PO SCH ×2 (09:32→20:35)
[2022-09-23] MEDS: atorvastatin 20mg tablet PO SCH (09:32)
[2022-09-23] MEDS: clopidogrel 75mg tablet PO SCH (09:32)
[2022-09-23 11:00] VITALS: BP 121/73
--- NOTE | 2022-09-23 17:55 | NUR ---
wound care performed as ordered. dressing CDI. Catheter in place and draining. no c/o pain or discomfort. VSS. All safety measures in place and call light in reach. Will continue to monitor.
--- NOTE | 2022-09-23 18:25 | NUR ---
Patient in room [facility] 355. I have received report from PHUONG Almodovar and had the opportunity to ask questions and assume patient care.
[2022-09-23 22:00] VITALS: BP 95/52
[2022-09-24 05:30] VITALS: BP 148/59
--- NOTE | 2022-09-24 06:10 | NUR ---
Patient in room [facility] 355. I have received report from SYL Harper and had the opportunity to ask questions and assume patient care.
--- NOTE | 2022-09-24 06:34 | NUR ---
Problems reprioritized. Patient report given, questions answered & plan of care reviewed with SLY Crow.
[2022-09-24] MEDS: JUVEN Smoothie Arginine/Glut./Ca2+Bmb (Juven 19.3pkt) 240ml cup PO SCH ×4 (07:30→17:49)
[2022-09-24] MEDS: LACTOSE-REDUCED FOOD 237ML LIQUID PO SCH ×3 (08:00→17:50)
[2022-09-24 09:26] LABS: ALANINE AMINOTRANSFERASE 11 U/L (12-78); ALBUMIN 2.3 G/DL (3.4-5.0); ALBUMIN/GLOBULIN RATIO 0.5 (1.1-1.5); ALKALINE PHOSPHATASE 68 IU/L (46-116); ANION GAP 4 (8-16); ASPARTATE AMINO TRANSFERASE 17 U/L (10-37); BILIRUBIN,TOTAL 0.4 MG/DL (0.1-1.0); BLOOD UREA NITROGEN 17 MG/DL (7-18); BUN/CREATININE RATIO 19.5 (6.6-38.0); CALCIUM 8.5 MG/DL (8.5-10.1); CHLORIDE 104 MMOL/L (99-107); CREATININE 0.87 MG/DL (0.40-0.90); POTASSIUM 3.5 MMOL/L (3.5-5.1); SODIUM 137 MMOL/L (135-145); TOTAL CARBON DIOXIDE 28.6 MMOL/L (24-32); TOTAL PROTEIN 7.2 G/DL (6.4-8.2); eGFR 63 ML/MIN
[2022-09-24 09:27] LABS: GLUCOSE 174 MG/DL (70-104)
[2022-09-24 10:00] VITALS: BP 140/60
[2022-09-24 10:28] LABS: ANISOCYTOSIS 3+; ELLIPTOCYTES 2+; HYPOCHROMASIA 1+; PLATELET ESTIMATE DECREASED; POLYCHROMASIA 1+; TOTAL CELLS COUNTED 100
[2022-09-24 10:29] LABS: TOXIC VACUOLATION 2+
[2022-09-24] MEDS: K and/or MAG REPLACEMENT MC SCH ×2 (10:44→20:00)
[2022-09-24 10:50] LABS: BASOPHILS % (AUTO) 0.5 % (0-1); EOSINOPHILS % (AUTO) 0.1 % (0-6); HEMATOCRIT 28.1 % (35.0-45.0); LYMPHOCYTES # (AUTO) 0.7 X10'3 (1.1-4.8); LYMPHOCYTES % (AUTO) 21.7 % (21-51); MEAN CORPUSCULAR HEMOGLOBIN 26.6 PG (27.0-31.0); MEAN PLATELET VOLUME 7.4 FL (7.4-10.4); MONOCYTES # (AUTO) 0.2 X10'3 (0-0.9); MONOCYTES % (AUTO) 5.8 % (2-12); NEUTROPHILS # (AUTO) 2.3 X10'3 (1.8-7.7); NEUTROPHILS % (AUTO) 71.9 % (42-75); PLATELET COUNT 74 X10'3 (140-440); RED BLOOD COUNT 3.38 X10'6 (4.20-5.60); RED CELL DISTRIBUTION WIDTH 20.7 % (11.5-14.5); WHITE BLOOD COUNT 3.2 X10'3 (4.5-11.0)
[2022-09-24] MEDS: docusate sod 100mg capsule PO SCH ×2 (10:53→20:00)
[2022-09-24] MEDS: clopidogrel 75mg tablet PO SCH (10:53)
[2022-09-24] MEDS: ascorbic acid 500mg tablet PO SCH ×2 (10:53→17:30)
[2022-09-24] MEDS: atorvastatin 20mg tablet PO SCH (10:53)
[2022-09-24] MEDS: FERROUS SULFATE 142 MG TABLET.ER (45mg elemental) PO SCH ×2 (10:53→21:24)
[2022-09-24] MEDS: traMADol 50MG tablet PO PRN (12:07)
--- NOTE | 2022-09-24 14:07 | NUR ---
Reassessment: Per WOC note 09/22 stage III PU to right lateral foot appears to be healing though pt continues with a stage III PU to coccyx. PO intake has significantly improved, documented with average 63% PO intake of meals, 96% PO intake of Ensure Plus HP TID, and 69% PO intake of Elias smoothie BID since 09/22 meeting estimated nutrient needs. LBM 09/23. No additional nutrition intervention implemented at this time. Will continue to follow. Recommendations: 1. Liberalize to regular/EC7/chop all diet given poor initial meal acceptance; encourage PO intake 2. [place] pt food preferences: no eggs, gravy with meat, mashed potatoes BIDLD 3. Ensure Plus High Protein TIDWM; Elias smoothie BIDBD 4. MVI supplementation for wound healing 5. Continue routine Fe and Vitamin C supplementation in view of low serum Fe, TIBC, and %sat 6. Consider appetite stimulant per physician discretion if PO intake declines 7. Routine bowel care 8. Scaled wt this admit; subsequent weekly scaled wts Addendum: 09/24/22 at [address] Amended: Links added.
[2022-09-24] MEDS ORDERED: piperacillin/tazo 3.375gm/50ml 50 ML IV SCH (20:00)
--- NOTE | 2022-09-24 20:00 | NUR ---
Problems reprioritized. Patient report given, questions answered & plan of care reviewed with SYL Lugo.
[2022-09-24 22:22] VITALS: BP 94/46
[2022-09-24 23:00] VITALS: BP 97/53
[2022-09-25] MEDS: traMADol 50MG tablet PO PRN ×3 (02:18→15:33)
--- NOTE | 2022-09-25 05:09 | NUR ---
Pt. is awake alert oriented in good spirits. Pt has a wound vac to sacrum c/o positional pain medicated with Tramadol tolerated well expressed effective relief. Pfeiffer with yellow clear urine. Plan for placement soon.
[2022-09-25 05:30] VITALS: BP 96/48
--- NOTE | 2022-09-25 06:50 | NUR ---
Patient in room [facility] 355. I have received report from SYL Lugo and had the opportunity to ask questions and assume patient care.
[2022-09-25] MEDS: JUVEN Smoothie Arginine/Glut./Ca2+Bmb (Juven 19.3pkt) 240ml cup PO SCH ×2 (07:40→17:43)
[2022-09-25] MEDS: LACTOSE-REDUCED FOOD 237ML LIQUID PO SCH ×3 (07:49→17:43)
[2022-09-25] MEDS: K and/or MAG REPLACEMENT MC SCH ×2 (07:49→20:00)
[2022-09-25] MEDS: ascorbic acid 500mg tablet PO SCH ×2 (09:31→17:43)
[2022-09-25] MEDS: clopidogrel 75mg tablet PO SCH (09:32)
[2022-09-25] MEDS: FERROUS SULFATE 142 MG TABLET.ER (45mg elemental) PO SCH ×2 (09:32→21:43)
[2022-09-25] MEDS: atorvastatin 20mg tablet PO SCH (09:32)
[2022-09-25] MEDS: docusate sod 100mg capsule PO SCH ×2 (09:32→21:43)
[2022-09-25 10:00] VITALS: BP 114/55
[2022-09-25 18:00] VITALS: BP 96/46
--- NOTE | 2022-09-25 18:45 | NUR ---
Problems reprioritized. Patient report given, questions answered & plan of care reviewed with Mao Pollack RN
[2022-09-25 22:00] VITALS: BP 95/47
[2022-09-26] MEDS: traMADol 50MG tablet PO PRN ×3 (00:44→18:17)
[2022-09-26] MEDS: acetaminophen 325mg tablet PO PRN ×3 (00:44→18:17)
[2022-09-26 05:30] VITALS: BP 96/45
--- NOTE | 2022-09-26 06:20 | NUR ---
Patient in room [facility] 355. I have received report from Mao Pollack RN and had the opportunity to ask questions and assume patient care.
[2022-09-26] MEDS: JUVEN Smoothie Arginine/Glut./Ca2+Bmb (Juven 19.3pkt) 240ml cup PO SCH ×2 (07:21→17:47)
[2022-09-26] MEDS: LACTOSE-REDUCED FOOD 237ML LIQUID PO SCH ×3 (07:21→17:47)
[2022-09-26 07:22] LABS: BASOPHILS % (AUTO) 0.8 % (0-1); EOSINOPHILS % (AUTO) 0 % (0-6); HEMATOCRIT 27.4 % (35.0-45.0); HEMOGLOBIN 8.7 g/dl (12.0-16.0); LYMPHOCYTES # (AUTO) 0.9 X10'3 (1.1-4.8); LYMPHOCYTES % (AUTO) 31.9 % (21-51); MEAN CORPUSCULAR HEMOGLOBIN 26.4 PG (27.0-31.0); MEAN CORPUSCULAR HGB CONC 31.9 g/dL (33.0-36.5); MEAN CORPUSCULAR VOLUME 82.7 FL (78-98); MEAN PLATELET VOLUME 8.1 FL (7.4-10.4); MONOCYTES # (AUTO) 0.2 X10'3 (0-0.9); MONOCYTES % (AUTO) 8.3 % (2-12); NEUTROPHILS # (AUTO) 1.7 X10'3 (1.8-7.7); PLATELET COUNT 77 X10'3 (140-440); RED BLOOD COUNT 3.31 X10'6 (4.20-5.60); RED CELL DISTRIBUTION WIDTH 20.8 % (11.5-14.5); WHITE BLOOD COUNT 2.9 X10'3 (4.5-11.0)
[2022-09-26 07:32] LABS: ALANINE AMINOTRANSFERASE 12 U/L (12-78); ALBUMIN 2.3 G/DL (3.4-5.0); ALBUMIN/GLOBULIN RATIO 0.5 (1.1-1.5); ANION GAP 3 (8-16); ASPARTATE AMINO TRANSFERASE 20 U/L (10-37); BILIRUBIN,TOTAL 0.4 MG/DL (0.1-1.0); BLOOD UREA NITROGEN 25 MG/DL (7-18); BUN/CREATININE RATIO 29.4 (6.6-38.0); CALCIUM 8.7 MG/DL (8.5-10.1); CHLORIDE 101 MMOL/L (99-107); CREATININE 0.85 MG/DL (0.40-0.90); POTASSIUM 4.2 MMOL/L (3.5-5.1); SODIUM 135 MMOL/L (135-145); TOTAL CARBON DIOXIDE 31.1 MMOL/L (24-32); TOTAL PROTEIN 7.1 G/DL (6.4-8.2); eGFR 65 ML/MIN
[2022-09-26 07:36] LABS: ALKALINE PHOSPHATASE 68 IU/L (46-116); GLUCOSE 106 MG/DL (70-104)
[2022-09-26] MEDS: K and/or MAG REPLACEMENT MC SCH ×2 (07:36→20:00)
[2022-09-26 08:25] LABS: ANISOCYTOSIS 3+; ELLIPTOCYTES 2+; PLATELET ESTIMATE DECREASED; POLYCHROMASIA 1+; TOTAL CELLS COUNTED 100; TOXIC VACUOLATION 2+
[2022-09-26 08:26] LABS: HYPOCHROMASIA 1+
[2022-09-26] MEDS: atorvastatin 20mg tablet PO SCH (08:57)
[2022-09-26] MEDS: docusate sod 100mg capsule PO SCH ×2 (08:58→20:42)
[2022-09-26] MEDS: FERROUS SULFATE 142 MG TABLET.ER (45mg elemental) PO SCH ×2 (08:58→20:42)
[2022-09-26] MEDS: clopidogrel 75mg tablet PO SCH (08:58)
[2022-09-26] MEDS: ascorbic acid 500mg tablet PO SCH ×2 (08:59→17:48)
[2022-09-26 10:00] VITALS: BP 98/46
[2022-09-26 18:00] VITALS: BP 111/58
--- NOTE | 2022-09-26 19:20 | NUR ---
Problems reprioritized. Patient report given, questions answered & plan of care reviewed with SYL Pollack.
[2022-09-26 22:00] VITALS: BP 93/43
[2022-09-27] MEDS: traMADol 50MG tablet PO PRN ×4 (00:19→21:04)
[2022-09-27] MEDS: acetaminophen 325mg tablet PO PRN ×3 (00:19→21:03)
[2022-09-27 07:00] VITALS: BP 114/64
[2022-09-27] MEDS: JUVEN Smoothie Arginine/Glut./Ca2+Bmb (Juven 19.3pkt) 240ml cup PO SCH ×2 (07:30→09:54)
[2022-09-27] MEDS: K and/or MAG REPLACEMENT MC SCH ×2 (08:00→20:00)
[2022-09-27] MEDS: LACTOSE-REDUCED FOOD 237ML LIQUID PO SCH ×3 (08:00→18:00)
[2022-09-27] MEDS: docusate sod 100mg capsule PO SCH ×2 (08:00→20:50)
[2022-09-27] MEDS: clopidogrel 75mg tablet PO SCH (08:00)
[2022-09-27] MEDS: atorvastatin 20mg tablet PO SCH (08:00)
[2022-09-27] MEDS: FERROUS SULFATE 142 MG TABLET.ER (45mg elemental) PO SCH ×2 (08:00→20:50)
[2022-09-27] MEDS: ascorbic acid 500mg tablet PO SCH ×2 (08:30→16:03)
[2022-09-27 11:00] VITALS: BP 114/76
--- NOTE | 2022-09-27 15:11 | NUR ---
WOUND VAC EDUCATION PROVIDED BY WOUND CARE 1. Patient instructed to call the Wound Center or their Home Health Agency immediately if: * They notice a change in the color or amount of the fluid in the canister. * Their wound looks more red than usual or has a foul smell. * The skin around their wound looks reddened or irritated. * The dressing feels loose or appears to be loose. * They experience any increase or changes in their pain. * The alarm will not turn off. 2. Patient instructed that they should not be disconnected from suction for more than 2 hours at a time. * If they are not able to get the suction back on, they need to remove the dressing and take all of the foam out of the wound. * Then moisten sterile gauze with normal saline and place on/in the wound. * Change the dressing once a day until arrangements have been made to replace the wound vac dressing. 3. Patient instructed to turn the wound vac machine OFF and call 911 or go to the ED immediately if their canister fills rapidly with blood. 4. If any of these occur while in the hospital tell a nurse immediately. Addendum: 09/27/22 at 1512 by Rosalba Camargo LVN Amended: Links added.
--- NOTE | 2022-09-27 17:00 | NUR ---
I have reviewed and agree with interventions, assessments,and documentation by PHUONG Almodovar.
[2022-09-27 18:00] VITALS: BP 87/42
--- NOTE | 2022-09-27 18:30 | NUR ---
Patient in room [facility] 355. I have received report from Nishi BACA and had the opportunity to ask questions and assume patient care.
[2022-09-28 00:30] VITALS: BP 116/56
[2022-09-28] MEDS: traMADol 50MG tablet PO PRN ×2 (04:26→15:26)
[2022-09-28] MEDS: acetaminophen 325mg tablet PO PRN ×2 (04:26→15:27)
[2022-09-28 06:00] VITALS: BP 120/47
--- NOTE | 2022-09-28 06:45 | NUR ---
Problems reprioritized. Patient report given, questions answered & plan of care reviewed with Nishi STREETER.
[2022-09-28] MEDS: JUVEN Smoothie Arginine/Glut./Ca2+Bmb (Juven 19.3pkt) 240ml cup PO SCH ×2 (07:30→17:55)
[2022-09-28] MEDS: K and/or MAG REPLACEMENT MC SCH ×2 (08:00→20:00)
[2022-09-28] MEDS: LACTOSE-REDUCED FOOD 237ML LIQUID PO SCH ×3 (08:41→21:45)
[2022-09-28] MEDS: clopidogrel 75mg tablet PO SCH (08:41)
[2022-09-28] MEDS: docusate sod 100mg capsule PO SCH ×2 (08:41→21:43)
[2022-09-28] MEDS: atorvastatin 20mg tablet PO SCH (08:41)
[2022-09-28] MEDS: ascorbic acid 500mg tablet PO SCH ×2 (08:41→15:26)
[2022-09-28] MEDS: FERROUS SULFATE 142 MG TABLET.ER (45mg elemental) PO SCH ×2 (08:41→21:43)
[2022-09-28 11:00] VITALS: BP 88/46
--- NOTE | 2022-09-28 14:30 | NUR ---
F/u 09/28: Pt PO continues to fluctuate w/ periods of decline but ONS intake more consistent ~45% avg meals, ~86% Ensures TID, and ~53% Elias BID past 4 days overall meeting estimated needs. Noted intake now ~88% avg past 5 meals per EMR. Pt now w/ wound vac to coccyx III PI per EMR. LBM 09/27. Will continue to monitor. Recommendations: 1. Liberalize to regular/EC7/chop all diet given poor initial meal acceptance; encourage PO intake 2. [place] pt food preferences: no eggs, gravy with meat, mashed potatoes BIDLD 3. Ensure Plus High Protein TIDWM; Elias smoothie BIDBD 4. MVI supplementation for wound healing 5. Continue routine Fe and Vitamin C supplementation in view of low serum Fe, TIBC, and %sat 6. Consider appetite stimulant per MD if intake regresses given initial prolonged inadequate intake 7. Routine bowel care 8. Scaled wt this admit; subsequent weekly scaled wts Addendum: 09/28/22 at [address] Amended: Links added.
--- NOTE | 2022-09-28 16:00 | NUR ---
I have reviewed interventions, assessments performed, and documentation by PHUONG Almodovar
[2022-09-28 18:00] VITALS: BP 118/50
--- NOTE | 2022-09-28 18:35 | NUR ---
Patient in room [facility] 355. I have received report from FUAD BACA and had the opportunity to ask questions and assume patient care.
[2022-09-28 22:00] VITALS: BP 90/49
[2022-09-29 06:00] VITALS: BP 102/54
--- NOTE | 2022-09-29 06:45 | NUR ---
Problems reprioritized. Patient report given, questions answered & plan of care reviewed with JOHN BACA.
--- NOTE | 2022-09-29 06:51 | NUR ---
Received report from SYL Vazquez: reviewed plan of care. Pt checked on,NAD
[2022-09-29] MEDS: JUVEN Smoothie Arginine/Glut./Ca2+Bmb (Juven 19.3pkt) 240ml cup PO SCH ×3 (07:31→20:21)
[2022-09-29] MEDS: K and/or MAG REPLACEMENT MC SCH ×2 (08:00→20:00)
[2022-09-29] MEDS: LACTOSE-REDUCED FOOD 237ML LIQUID PO SCH ×3 (08:00→20:00)
[2022-09-29] MEDS: clopidogrel 75mg tablet PO SCH (09:47)
[2022-09-29] MEDS: ascorbic acid 500mg tablet PO SCH ×2 (09:47→17:35)
[2022-09-29] MEDS: atorvastatin 20mg tablet PO SCH (09:47)
[2022-09-29] MEDS: FERROUS SULFATE 142 MG TABLET.ER (45mg elemental) PO SCH ×2 (09:47→20:18)
[2022-09-29] MEDS: docusate sod 100mg capsule PO SCH ×2 (09:47→20:20)
[2022-09-29 10:00] VITALS: BP 96/49
[2022-09-29] MEDS: acetaminophen 325mg tablet PO PRN (10:02)
[2022-09-29] MEDS: traMADol 50MG tablet PO PRN ×3 (10:03→20:20)
--- NOTE | 2022-09-29 15:14 | NUR ---
PRESSURE ULCER EDUCATION: DEFINITION: A pressure ulcer is an area of skin that breaks down when you stay in one position too long. The constant pressure against the skin reduces the blood flow to that area and the affected tissue dies. CAUSES: "Being bedridden or in a wheelchair "Fragile skin "Having a chronic condition, such as diabetes or vascular disease "Inability to move certain parts of your body without assistance "Older age "Incontinence of urine or stool SYMPTOMS: "A reddened area that DOES NOT turn white when pressed on - this can be the beginning of a pressure ulcer "A blister, deep sore or a crater - these can be advanced pressure ulcers FIRST AID: "Relieve the pressure on this area "Keep the area clean and dry "Call your primary doctor if you see any of the above symptoms "DO NOT massage the area "DO NOT use a donut shaped or ring shaped pillow- these actually interfere with the blood flow and cause complications PREVENTION: "Check for pressure ulcers everyday "Change position at least every two hours to relieve pressure "Use items that help relieve pressure- pillows, sheepskin, foam padding, and powders. "Keep skin clean and dry "Eat healthy well balanced meals "Exercise daily IF YOU SEE ANY OF THESE SYMPTOMS WHILE IN THE HOSPITAL - TELL YOUR NURSE IMMEDIATELY. IF YOU SEE ANY OF THESE SYMPTOMS WHILE AT HOME OR HAVE ANY QUESTIONS OR CONCERNS ABOUT PRESSURE ULCERS - CALL YOUR PRIMARY DOCTOR IMMEDIATELY. Addendum: 09/29/22 at 1514 by Rosalba Camargo LVN Amended: Links added.
--- NOTE | 2022-09-29 17:30 | NUR ---
I have reviewed and agree with interventions, assessments, and documentation by GABY UrbinaN2.
[2022-09-29 18:00] VITALS: BP 130/63
--- NOTE | 2022-09-29 18:23 | NUR ---
Report regarding the pt was relayed to SYL Montano. Plan of care, concerns, questions where addressed. Patient is in NAD at this time.
--- NOTE | 2022-09-29 18:30 | NUR ---
Patient in room [facility] 355. I have received report from JOHN BACA and had the opportunity to ask questions and assume patient care.
[2022-09-29 22:00] VITALS: BP 102/45
[2022-09-30 06:00] VITALS: BP 113/59
--- NOTE | 2022-09-30 06:19 | NUR ---
Problems reprioritized. Patient report given, questions answered & plan of care reviewed with TERRENCE STREETER.
--- NOTE | 2022-09-30 06:43 | NUR ---
Patient in room [facility] 355. I have received report from SYL Vazquez and had the opportunity to ask questions and assume patient care.
[2022-09-30] MEDS: K and/or MAG REPLACEMENT MC SCH ×2 (08:00→20:00)
[2022-09-30] MEDS: LACTOSE-REDUCED FOOD 237ML LIQUID PO SCH ×3 (08:25→19:00)
[2022-09-30] MEDS: docusate sod 100mg capsule PO SCH ×2 (08:25→20:32)
[2022-09-30] MEDS: atorvastatin 20mg tablet PO SCH (08:25)
[2022-09-30] MEDS: FERROUS SULFATE 142 MG TABLET.ER (45mg elemental) PO SCH ×2 (08:26→20:34)
[2022-09-30] MEDS: clopidogrel 75mg tablet PO SCH (08:26)
[2022-09-30] MEDS: ascorbic acid 500mg tablet PO SCH ×2 (08:26→17:35)
[2022-09-30 11:00] VITALS: BP 112/56
--- NOTE | 2022-09-30 13:30 | NUR ---
Patient upset, states she has been waiting for pain medication "that was due 35 minutes ago." Educated patient that her pain medication is not scheduled and she must ask for it. Asked patient hourly throughout morning if she was painful and she never reported pain. Pain medication given.
[2022-09-30] MEDS: traMADol 50MG tablet PO PRN ×2 (13:38→20:33)
[2022-09-30] MEDS: JUVEN Smoothie Arginine/Glut./Ca2+Bmb (Juven 19.3pkt) 240ml cup PO SCH (17:39)
[2022-09-30 18:00] VITALS: BP 107/52
--- NOTE | 2022-09-30 18:24 | NUR ---
Problems reprioritized. Patient report given, questions answered & plan of care reviewed with SYL Montano.
--- NOTE | 2022-09-30 18:30 | NUR ---
Patient in room [facility] 355. I have received report from TERRENCE STREETER and had the opportunity to ask questions and assume patient care.
[2022-09-30 22:00] VITALS: BP 101/50
[2022-10-01 06:00] VITALS: BP 114/62
--- NOTE | 2022-10-01 06:28 | NUR ---
Problems reprioritized. Patient report given, questions answered & plan of care reviewed with TERRENCE BACA.
--- NOTE | 2022-10-01 07:09 | NUR ---
Patient in room [facility] 355. I have received report from SYL Montano and had the opportunity to ask questions and assume patient care.
[2022-10-01] MEDS: FERROUS SULFATE 142 MG TABLET.ER (45mg elemental) PO SCH ×2 (07:22→20:19)
[2022-10-01] MEDS: docusate sod 100mg capsule PO SCH ×2 (07:23→20:00)
[2022-10-01] MEDS: clopidogrel 75mg tablet PO SCH (07:23)
[2022-10-01] MEDS: atorvastatin 20mg tablet PO SCH (07:23)
[2022-10-01] MEDS: ascorbic acid 500mg tablet PO SCH ×2 (07:23→20:19)
--- NOTE | 2022-10-01 07:26 | NUR ---
Student Medication Administration: For this medication-pass time frame, all medication were reviewed, dispensed, administered and documented per hospital policy by Bimal Mahan student with Daniel Huffman RN instructor.
[2022-10-01] MEDS: JUVEN Smoothie Arginine/Glut./Ca2+Bmb (Juven 19.3pkt) 240ml cup PO SCH ×2 (07:49→17:41)
[2022-10-01] MEDS: LACTOSE-REDUCED FOOD 237ML LIQUID PO SCH ×3 (08:00→18:00)
[2022-10-01] MEDS: K and/or MAG REPLACEMENT MC SCH ×2 (08:00→20:00)
[2022-10-01 10:13] VITALS: BP 111/56
[2022-10-01] MEDS: traMADol 50MG tablet PO PRN (11:16)
--- NOTE | 2022-10-01 14:03 | NUR ---
WOUND VAC EDUCATION PROVIDED BY WOUND CARE 1. Patient instructed to call the Wound Center or their Home Health Agency immediately if: * They notice a change in the color or amount of the fluid in the canister. * Their wound looks more red than usual or has a foul smell. * The skin around their wound looks reddened or irritated. * The dressing feels loose or appears to be loose. * They experience any increase or changes in their pain. * The alarm will not turn off. 2. Patient instructed that they should not be disconnected from suction for more than 2 hours at a time. * If they are not able to get the suction back on, they need to remove the dressing and take all of the foam out of the wound. * Then moisten sterile gauze with normal saline and place on/in the wound. * Change the dressing once a day until arrangements have been made to replace the wound vac dressing. 3. Patient instructed to turn the wound vac machine OFF and call 911 or go to the ED immediately if their canister fills rapidly with blood. 4. If any of these occur while in the hospital tell a nurse immediately. Addendum: 10/01/22 at 1404 by Rosalba Camargo LVN Amended: Links added.
--- NOTE | 2022-10-01 15:19 | NUR ---
POTATO PEELING MACHINE OPERATOR documentation: I have reviewed and agree with all interventions, assessments performed and documented by Raine Oviedo LVN.
[2022-10-01 18:00] VITALS: BP 84/52
--- NOTE | 2022-10-01 18:30 | NUR ---
Patient in room [facility] 355. I have received report from Raine BACA and had the opportunity to ask questions and assume patient care.
--- NOTE | 2022-10-01 18:32 | NUR ---
Problems reprioritized. Patient report given, questions answered & plan of care reviewed with PHUONG Pacheco.
--- NOTE | 2022-10-01 20:08 | NUR ---
Student documentation: I have reviewed and agree with all interventions, assessments performed and documented by Pee Mahan student nurse, by Giacomo Huffman RN Instructor.
--- NOTE | 2022-10-01 20:22 | NUR ---
NON ADMIN FOR K, MAG, AND PHOS LVLS UNDER EMAR DUE TO NO NEW LABS BEING DRAWN. DO NOT HAVE UPDATED LVLS.
[2022-10-01 22:00] VITALS: BP 99/53
--- NOTE | 2022-10-02 00:20 | NUR ---
Patient in room [facility] 355. I have received report from PHUONG Be and had the opportunity to ask questions and assume patient care. Addendum: 10/02/22 at 0130 by Lanie Stanton RN Amended: Links added.
--- NOTE | 2022-10-02 00:24 | NUR ---
Problems reprioritized. Patient report given, questions answered & plan of care reviewed with Suzette STREETER.
--- NOTE | 2022-10-02 01:41 | NUR ---
wound care and wound vac changed 10/01/[address]ICITAS STREETER Addendum: 10/02/22 at 0142 by Lanie Stanton RN Amended: Links added.
[2022-10-02 06:00] VITALS: BP 99/50
--- NOTE | 2022-10-02 06:04 | NUR ---
repositioned, refuses to turn on left side. Addendum: 10/02/22 at 0605 by Lanie Stanton RN Amended: Links added.
--- NOTE | 2022-10-02 06:24 | NUR ---
mello. Patient report given, questions answered & plan of care reviewed with SYL Ni. Addendum: 10/02/22 at 0624 by Lanie Stanton RN Amended: Links added.
[2022-10-02] MEDS: JUVEN Smoothie Arginine/Glut./Ca2+Bmb (Juven 19.3pkt) 240ml cup PO SCH ×2 (07:30→10:09)
--- NOTE | 2022-10-02 07:38 | NUR ---
Patient in room [facility] 355. I have received report from SYL Bradfodr and had the opportunity to ask questions and assume patient care.
[2022-10-02] MEDS: K and/or MAG REPLACEMENT MC SCH ×2 (08:00→20:00)
[2022-10-02] MEDS: LACTOSE-REDUCED FOOD 237ML LIQUID PO SCH ×3 (08:00→18:37)
[2022-10-02 10:00] VITALS: BP 116/45
[2022-10-02] MEDS: clopidogrel 75mg tablet PO SCH (10:05)
[2022-10-02] MEDS: docusate sod 100mg capsule PO SCH ×2 (10:05→20:08)
[2022-10-02] MEDS: FERROUS SULFATE 142 MG TABLET.ER (45mg elemental) PO SCH ×2 (10:05→20:08)
[2022-10-02] MEDS: ascorbic acid 500mg tablet PO SCH ×2 (10:05→20:09)
[2022-10-02] MEDS: atorvastatin 20mg tablet PO SCH (10:05)
--- NOTE | 2022-10-02 14:24 | NUR ---
PAGER ID: [phone] MESSAGE: Colleen CopelandB. Pfeiffer catheter leaking and has not been replaced in 30 days. Ok to replace catheter? Thank you, Raine [id number]
--- NOTE | 2022-10-02 15:54 | NUR ---
Matthew catheter was found to be leaking. Chart indicated 30 days since insertion of matthew. Obtained order to change matthew cath and get UA due to odorous urine with sediment.
[2022-10-02 16:17] LABS: CLARITY,URINE CLOUDY (Clear); COLOR,URINE YELLOW (Yellow); GLUCOSE, URINE NEGATIVE (Neg); KETONES,URINE NEGATIVE (Neg); LEUKOCYTE ESTERASE ,URINE LARGE (Neg); NITRITES, URINE POSITIVE (Neg); OCCULT BLOOD,URINE SMALL (Neg); PROTEIN,URINE TRACE mg/dl (Neg); UROBILINOGEN,URINE 0.2 E.U/dL (0.2-1.0)
[2022-10-02 16:22] LABS: UA COLLECTION TYPE FOLEY CATH
[2022-10-02 16:23] LABS: BACTERIA,URINE 4+ /HPF (Neg); MUCUS STRANDS FEW /LPF (Neg); RBC,URINE 0-2 /HPF (0-2); SQUAMOUS EPITHELIAL CELL,UR FEW /LPF (FEW); WBC,URINE 50-100 /HPF (0-4)
--- NOTE | 2022-10-02 16:50 | NUR ---
PAGER ID: [phone] MESSAGE: Colleen CopelandB. UA results back 4+ bacteria. Patient has no IV order. Thanks, Raine [phone]
[2022-10-02 18:00] VITALS: BP 103/46
[2022-10-02] MEDS: sulfamethoxazole/trimethoprim DS (800/160mg) tablet PO SCH (20:08)
[2022-10-02] MEDS: traMADol 50MG tablet PO PRN (21:04)
[2022-10-02 22:00] VITALS: BP 93/50
--- NOTE | 2022-10-03 05:27 | NUR ---
REVIEWED AND AGREE WITH DOCUMENTATION FROM TERRENCE BACA.
--- NOTE | 2022-10-03 06:15 | NUR ---
Problems reprioritized. Patient report given, questions answered & plan of care reviewed with PHOUNG Almodovar.
--- NOTE | 2022-10-03 07:01 | NUR ---
Patient in room [facility] 355. I have received report from Raine BACA and had the opportunity to ask questions and assume patient care.
[2022-10-03] MEDS: atorvastatin 20mg tablet PO SCH (07:27)
[2022-10-03] MEDS: FERROUS SULFATE 142 MG TABLET.ER (45mg elemental) PO SCH ×2 (07:27→20:35)
[2022-10-03] MEDS: clopidogrel 75mg tablet PO SCH (07:27)
[2022-10-03] MEDS: ascorbic acid 500mg tablet PO SCH ×2 (07:27→20:35)
[2022-10-03] MEDS: sulfamethoxazole/trimethoprim DS (800/160mg) tablet PO SCH ×2 (07:27→20:34)
[2022-10-03] MEDS: docusate sod 100mg capsule PO SCH ×2 (07:27→20:34)
[2022-10-03] MEDS: JUVEN Smoothie Arginine/Glut./Ca2+Bmb (Juven 19.3pkt) 240ml cup PO SCH ×2 (07:30→17:32)
[2022-10-03] MEDS: K and/or MAG REPLACEMENT MC SCH ×2 (08:00→20:00)
[2022-10-03] MEDS: LACTOSE-REDUCED FOOD 237ML LIQUID PO SCH ×3 (08:00→18:00)
[2022-10-03] MEDS: traMADol 50MG tablet PO PRN ×2 (10:26→22:22)
[2022-10-03 11:12] VITALS: BP 102/56
[2022-10-03 18:00] VITALS: BP 95/54
--- NOTE | 2022-10-03 18:35 | NUR ---
Patient in room [facility] 355. I have received report from Sharla BACA and had the opportunity to ask questions and assume patient care.
[2022-10-04 01:00] VITALS: BP 107/58
[2022-10-04] MEDS: traMADol 50MG tablet PO PRN ×3 (04:09→22:29)
[2022-10-04 05:00] VITALS: BP 98/47
--- NOTE | 2022-10-04 05:54 | NUR ---
Patient ate a yoghurt last night. Addendum: 10/04/22 at 0555 by Doretha Chand RN Amended: Links added.
--- NOTE | 2022-10-04 06:44 | NUR ---
Patient in room [facility] 355. I have received report from Doretha STREETER and had the opportunity to ask questions and assume patient care.
[2022-10-04] MEDS: docusate sod 100mg capsule PO SCH ×2 (08:00→22:31)
[2022-10-04] MEDS: K and/or MAG REPLACEMENT MC SCH ×2 (08:00→20:00)
[2022-10-04] MEDS: FERROUS SULFATE 142 MG TABLET.ER (45mg elemental) PO SCH ×2 (08:17→22:23)
[2022-10-04] MEDS: ascorbic acid 500mg tablet PO SCH ×2 (08:17→22:25)
[2022-10-04] MEDS: clopidogrel 75mg tablet PO SCH (08:18)
[2022-10-04] MEDS: sulfamethoxazole/trimethoprim DS (800/160mg) tablet PO SCH ×2 (08:18→22:22)
[2022-10-04] MEDS: atorvastatin 20mg tablet PO SCH (08:18)
[2022-10-04] MEDS: LACTOSE-REDUCED FOOD 237ML LIQUID PO SCH ×3 (08:19→18:02)
[2022-10-04] MEDS: JUVEN Smoothie Arginine/Glut./Ca2+Bmb (Juven 19.3pkt) 240ml cup PO SCH ×2 (08:19→17:30)
[2022-10-04 10:00] VITALS: BP 135/82
[2022-10-04] MEDS: acetaminophen 325mg tablet PO PRN (11:04)
--- NOTE | 2022-10-04 14:31 | NUR ---
F/u 10/04: Pt continues similar meal intake patterns ~3 day periods of 0-25% followed by ~75% avg meals for few days though ONS intake remains mostly consistent. Overall PO ~31% avg meals, 85% Ensures Plus TID, and 63% Elias smoothie BID meeting ~94% protein and ~85% kcal estimated needs. LBM 10/03 refusing colace per EMR. Will continue to follow. Recommendations: 1. Liberalize to regular/EC7/chop all diet given poor initial meal acceptance and fluctuating intake trends; encourage PO intake 2. [place] pt food preferences: no eggs, gravy with meat, mashed potatoes BIDLD 3. Ensure Plus High Protein TIDWM; Elias smoothie BIDBD 4. MVI supplementation for wound healing 5. Continue routine Fe and Vitamin C supplementation per MD in view of low serum Fe, TIBC, and %sat 6. Routine bowel care 7. Scaled wt this admit; subsequent weekly scaled wts Addendum: 10/04/22 at [address] Amended: Links added.
--- NOTE | 2022-10-04 15:36 | NUR ---
WOUND VAC EDUCATION PROVIDED BY WOUND CARE 1. Patient instructed to call the Wound Center or their Home Health Agency immediately if: * They notice a change in the color or amount of the fluid in the canister. * Their wound looks more red than usual or has a foul smell. * The skin around their wound looks reddened or irritated. * The dressing feels loose or appears to be loose. * They experience any increase or changes in their pain. * The alarm will not turn off. 2. Patient instructed that they should not be disconnected from suction for more than 2 hours at a time. * If they are not able to get the suction back on, they need to remove the dressing and take all of the foam out of the wound. * Then moisten sterile gauze with normal saline and place on/in the wound. * Change the dressing once a day until arrangements have been made to replace the wound vac dressing. 3. Patient instructed to turn the wound vac machine OFF and call 911 or go to the ED immediately if their canister fills rapidly with blood. 4. If any of these occur while in the hospital tell a nurse immediately. Addendum: 10/04/22 at 1536 by Rosalba Camargo LVN Amended: Links added.
--- NOTE | 2022-10-04 16:12 | NUR ---
See wound care notes. WV in place and 125mmhg. Very minimal output. LBM 10/03. Patient turned every two hours. HOB at 45 degrees. Tramadol and tylenol given for pain. Patient continues to talk about how her insurance agents supervisor told her to give up her apt due to it having bed bugs and return her 13K electric wheelchair. I asked her if she had another place to go or plan of placement and she said she wont go to a long-term or assisted due to no freedom. Case management notified of conversation. No acute changes this shift. All safety measures in place and call light in reach. Will continue to monitor.
--- NOTE | 2022-10-04 17:30 | NUR ---
I have reviewed and agree with the interventions, assessments and documentation by Nishi Arroyo LVN.
[2022-10-04 18:00] VITALS: BP 82/40
--- NOTE | 2022-10-04 18:35 | NUR ---
Received report from Nishi Bonilla.
[2022-10-04 22:00] VITALS: BP 97/50
[2022-10-05 06:11] VITALS: BP 120/68
--- NOTE | 2022-10-05 07:11 | NUR ---
Patient in room [facility] 355. I have received report from Doretha STREETER and had the opportunity to ask questions and assume patient care.
[2022-10-05] MEDS: JUVEN Smoothie Arginine/Glut./Ca2+Bmb (Juven 19.3pkt) 240ml cup PO SCH ×2 (07:30→17:49)
[2022-10-05] MEDS: ascorbic acid 500mg tablet PO SCH ×2 (08:00→22:22)
[2022-10-05] MEDS: LACTOSE-REDUCED FOOD 237ML LIQUID PO SCH ×3 (08:00→18:00)
[2022-10-05] MEDS: K and/or MAG REPLACEMENT MC SCH ×2 (08:00→20:00)
[2022-10-05] MEDS: docusate sod 100mg capsule PO SCH ×2 (08:00→22:22)
[2022-10-05] MEDS: sulfamethoxazole/trimethoprim DS (800/160mg) tablet PO SCH ×2 (09:03→22:21)
[2022-10-05] MEDS: FERROUS SULFATE 142 MG TABLET.ER (45mg elemental) PO SCH ×2 (09:03→22:21)
[2022-10-05] MEDS: atorvastatin 20mg tablet PO SCH (09:03)
[2022-10-05] MEDS: traMADol 50MG tablet PO PRN ×3 (09:05→18:00)
--- NOTE | 2022-10-05 10:00 | NUR ---
Patient's platelets noted 77, received verbal order from Dr. Ledesma to administer Plavix
[2022-10-05] MEDS: clopidogrel 75mg tablet PO SCH (10:27)
[2022-10-05 10:37] VITALS: BP 106/46
[2022-10-05] MEDS: acetaminophen 325mg tablet PO PRN (13:35)
--- NOTE | 2022-10-05 17:00 | NUR ---
I have reviewed and agree with interventions, assessments and documentation by Carie Wallis LVN.
[2022-10-05 18:00] VITALS: BP 81/38
--- NOTE | 2022-10-05 18:26 | NUR ---
Patient in room [facility] 355. I have received report from Carie BACA and had the opportunity to ask questions and assume patient care.
--- NOTE | 2022-10-05 18:46 | NUR ---
Problems reprioritized. Patient report given, questions answered & plan of care reviewed with Doretha STREETER.
[2022-10-05 22:00] VITALS: BP 95/55
[2022-10-05] MEDS ORDERED: ondansetron 4mg rapidly disintigrating tab PO ONE (22:10)
--- NOTE | 2022-10-06 06:50 | NUR ---
Patient in room [facility] 355. I have received report from Doretha STREETER and had the opportunity to ask questions and assume patient care.
--- NOTE | 2022-10-06 06:50 | NUR ---
Problems reprioritized. Patient report given, questions answered & plan of care reviewed with Carie BACA.
[2022-10-06 06:52] VITALS: BP 106/58
[2022-10-06] MEDS: JUVEN Smoothie Arginine/Glut./Ca2+Bmb (Juven 19.3pkt) 240ml cup PO SCH ×2 (07:59→12:46)
[2022-10-06] MEDS: K and/or MAG REPLACEMENT MC SCH ×2 (08:00→20:54)
[2022-10-06] MEDS: docusate sod 100mg capsule PO SCH ×2 (08:01→20:00)
[2022-10-06] MEDS: sulfamethoxazole/trimethoprim DS (800/160mg) tablet PO SCH ×2 (08:01→21:03)
[2022-10-06] MEDS: clopidogrel 75mg tablet PO SCH (08:01)
[2022-10-06] MEDS: atorvastatin 20mg tablet PO SCH (08:01)
[2022-10-06] MEDS: FERROUS SULFATE 142 MG TABLET.ER (45mg elemental) PO SCH ×2 (08:01→21:00)
[2022-10-06] MEDS: acetaminophen 325mg tablet PO PRN ×2 (08:02→21:02)
[2022-10-06] MEDS: ascorbic acid 500mg tablet PO SCH ×2 (08:03→21:06)
[2022-10-06] MEDS: LACTOSE-REDUCED FOOD 237ML LIQUID PO SCH ×3 (08:03→18:31)
[2022-10-06] MEDS: traMADol 50MG tablet PO PRN ×3 (08:03→21:01)
[2022-10-06] MEDS: Dakins solution (1/4 strength) 473ml solution TP SCH (10:00)
[2022-10-06 11:55] VITALS: BP 106/53
--- NOTE | 2022-10-06 17:49 | NUR ---
I have reviewed and agree with interventions, assessments and documentation by Carie Wallis LVN.
[2022-10-06 18:00] VITALS: BP 118/60
--- NOTE | 2022-10-06 18:41 | NUR ---
Problems reprioritized. Patient report given, questions answered & plan of care reviewed with Justine RN.
[2022-10-06] MEDS: ondansetron 4mg rapidly disintigrating tab PO PRN (21:02)
--- NOTE | 2022-10-06 22:32 | NUR ---
Pt. is awake alert oriented in good spirits ate more than 50% of meal. Drinks ensure with meds. Pt. does not have peripheral access. Pfeiffer with yellow clear urine Wound vac to sacrum with small amt of brownish drainage. Pt. able to turn self and reposition in bed. Medicated for pain as needed tolerated well.
[2022-10-07 01:40] VITALS: BP 112/56
[2022-10-07 03:13] VITALS: BP 113/51
[2022-10-07] MEDS: traMADol 50MG tablet PO PRN ×3 (03:50→13:46)
[2022-10-07] MEDS: ondansetron 4mg rapidly disintigrating tab PO PRN (03:51)
[2022-10-07] MEDS: acetaminophen 325mg tablet PO PRN ×2 (03:51→13:46)
[2022-10-07 06:00] VITALS: BP 106/54
--- NOTE | 2022-10-07 06:52 | NUR ---
Patient in room [facility] 355. I have received report from Justine RN and had the opportunity to ask questions and assume patient care.
[2022-10-07] MEDS: JUVEN Smoothie Arginine/Glut./Ca2+Bmb (Juven 19.3pkt) 240ml cup PO SCH ×2 (07:52→18:13)
[2022-10-07] MEDS: Dakins solution (1/4 strength) 473ml solution TP SCH (08:00)
[2022-10-07] MEDS: LACTOSE-REDUCED FOOD 237ML LIQUID PO SCH ×3 (08:00→18:13)
[2022-10-07] MEDS: K and/or MAG REPLACEMENT MC SCH ×2 (08:00→20:00)
[2022-10-07] MEDS: docusate sod 100mg capsule PO SCH ×2 (08:00→20:21)
[2022-10-07] MEDS: clopidogrel 75mg tablet PO SCH (09:19)
[2022-10-07] MEDS: FERROUS SULFATE 142 MG TABLET.ER (45mg elemental) PO SCH ×2 (09:19→20:22)
[2022-10-07] MEDS: ascorbic acid 500mg tablet PO SCH ×2 (09:19→20:22)
[2022-10-07] MEDS: atorvastatin 20mg tablet PO SCH (09:19)
[2022-10-07] MEDS: sulfamethoxazole/trimethoprim DS (800/160mg) tablet PO SCH ×2 (09:20→20:22)
[2022-10-07 10:00] VITALS: BP 102/50
--- NOTE | 2022-10-07 14:53 | NUR ---
Reassessment: PO intake appears to continue to improve, documented with average 57% PO intake of meals since 10/04. Per verbal d/w ELECTRICAL AND RADIO MOCK UP MECHANIC pt loves the Ensure (documented with mostly 75-100% PO intake of ONS) and prefers chocolate though pt does not like the Elias smoothie. D/w ELECTRICAL AND RADIO MOCK UP MECHANIC recommendation to remove the heart healthy diet restriction and for Elias ONS to be changed to a shake rather than a smoothie so pt can get a chocolate Elias shake which pt may be more receptive to. Per EMR pt has refused all Elias smoothies since dinner 10/04. Current PO intake is meeting 100% estimated energy and protein needs, though Elias continues to be recommended to assist with wound healing given coccyx stage III PU with wound VAC. LBM 10/04. Pt continues receiving routine bowel care with additional PRN bowel care available. Will continue to follow. Recommendations: 1. Liberalize to regular/EC7/chop all diet given poor initial meal acceptance and fluctuating intake trends; encourage PO intake 2. [place] pt food preferences: no eggs, gravy with meat, mashed potatoes BIDLD 3. Chocolate Ensure Plus High Protein TIDWM; change Elias smoothie BIDBD to chocolate Elias shake BID 4. MVI supplementation for wound healing 5. Continue routine Fe and Vitamin C supplementation per MD in view of low serum Fe, TIBC, and %sat 6. Routine bowel care 7. Scaled wt this admit; subsequent weekly scaled wts Addendum: 10/07/22 at [address] Amended: Links added.
--- NOTE | 2022-10-07 18:05 | NUR ---
Patient in room [facility] 355. I have received report from PHUONG Darnell and had the opportunity to ask questions and assume patient care.
--- NOTE | 2022-10-07 18:13 | NUR ---
Problems reprioritized. Patient report given, questions answered & plan of care reviewed with Meredith STREETER.
[2022-10-07 22:00] VITALS: BP 134/59
--- NOTE | 2022-10-08 06:20 | NUR ---
Problems reprioritized. Patient report given, questions answered & plan of care reviewed with SYL Garcia.
[2022-10-08] MEDS: JUVEN Smoothie Arginine/Glut./Ca2+Bmb (Juven 19.3pkt) 240ml cup PO SCH ×2 (07:30→12:30)
[2022-10-08 07:39] VITALS: BP 140/77
[2022-10-08] MEDS: LACTOSE-REDUCED FOOD 237ML LIQUID PO SCH ×3 (08:00→18:00)
[2022-10-08] MEDS: K and/or MAG REPLACEMENT MC SCH ×2 (08:00→20:00)
[2022-10-08] MEDS: Dakins solution (1/4 strength) 473ml solution TP SCH (08:00)
[2022-10-08] MEDS: ascorbic acid 500mg tablet PO SCH ×2 (08:00→20:05)
[2022-10-08] MEDS: sulfamethoxazole/trimethoprim DS (800/160mg) tablet PO SCH ×2 (09:47→20:05)
[2022-10-08] MEDS: FERROUS SULFATE 142 MG TABLET.ER (45mg elemental) PO SCH ×2 (09:47→20:05)
[2022-10-08] MEDS: docusate sod 100mg capsule PO SCH ×3 (09:48→20:05)
[2022-10-08] MEDS: acetaminophen 325mg tablet PO PRN (09:48)
[2022-10-08] MEDS: traMADol 50MG tablet PO PRN ×2 (09:48→14:06)
[2022-10-08] MEDS: clopidogrel 75mg tablet PO SCH (09:48)
[2022-10-08] MEDS: atorvastatin 20mg tablet PO SCH (09:48)
[2022-10-08 11:03] VITALS: BP 89/37
--- NOTE | 2022-10-08 13:05 | NUR ---
PAGER ID: [phone] MESSAGE: Issa Min 355b 04/19 generalized pain. Pt. crying out. Tylenol and Tramadol already given. Do you want to order something else for pain? Labs? Radha [id number]
[2022-10-08] MEDS: morphine 2 MG/ML inj. syringe IV ONE ×2 (13:59→14:00)
--- NOTE | 2022-10-08 14:03 | NUR ---
WOUND VAC EDUCATION PROVIDED BY WOUND CARE 1. Patient instructed to call the Wound Center or their Home Health Agency immediately if: * They notice a change in the color or amount of the fluid in the canister. * Their wound looks more red than usual or has a foul smell. * The skin around their wound looks reddened or irritated. * The dressing feels loose or appears to be loose. * They experience any increase or changes in their pain. * The alarm will not turn off. 2. Patient instructed that they should not be disconnected from suction for more than 2 hours at a time. * If they are not able to get the suction back on, they need to remove the dressing and take all of the foam out of the wound. * Then moisten sterile gauze with normal saline and place on/in the wound. * Change the dressing once a day until arrangements have been made to replace the wound vac dressing. 3. Patient instructed to turn the wound vac machine OFF and call 911 or go to the ED immediately if their canister fills rapidly with blood. 4. If any of these occur while in the hospital tell a nurse immediately. Addendum: 10/08/22 at 1403 by Rosalba Camargo LVN Amended: Links added.
[2022-10-08 18:00] VITALS: BP 102/52
--- NOTE | 2022-10-08 18:51 | NUR ---
gAVE REPORT TO Zen STREETER.
--- NOTE | 2022-10-08 19:09 | NUR ---
Student documentation: I have reviewed and agree with all interventions, assessments performed and documented by Amy Ivy SN by Giacomo Huffman RN Instructor.
[2022-10-08 22:00] VITALS: BP 105/51
--- NOTE | 2022-10-09 | NUR ---
Pt. is awake alert watching tv able to discuss several events . Able to eat and drink small amts to comfort. Pfeiffer with mod amt patricia clear urine. Wound Vac intact. Medicated for pain x1 this shift. Pt. has no peripheral access. Plan awaiting placement for group home care.
[2022-10-09] MEDS: traMADol 50MG tablet PO PRN ×3 (04:07→19:33)
[2022-10-09] MEDS: acetaminophen 325mg tablet PO PRN ×2 (04:08→15:56)
[2022-10-09 07:15] VITALS: BP 103/57
[2022-10-09] MEDS: JUVEN Smoothie Arginine/Glut./Ca2+Bmb (Juven 19.3pkt) 240ml cup PO SCH ×2 (07:30→13:19)
[2022-10-09] MEDS: K and/or MAG REPLACEMENT MC SCH ×2 (08:00→19:34)
[2022-10-09] MEDS: Dakins solution (1/4 strength) 473ml solution TP SCH (08:00)
[2022-10-09] MEDS: ascorbic acid 500mg tablet PO SCH ×2 (08:48→19:33)
[2022-10-09] MEDS: docusate sod 100mg capsule PO SCH ×2 (08:48→19:33)
[2022-10-09] MEDS: FERROUS SULFATE 142 MG TABLET.ER (45mg elemental) PO SCH ×2 (08:48→19:33)
[2022-10-09] MEDS: clopidogrel 75mg tablet PO SCH (08:48)
[2022-10-09] MEDS: sulfamethoxazole/trimethoprim DS (800/160mg) tablet PO SCH ×2 (08:48→19:33)
[2022-10-09] MEDS: atorvastatin 20mg tablet PO SCH (08:48)
[2022-10-09] MEDS: LACTOSE-REDUCED FOOD 237ML LIQUID PO SCH ×3 (08:48→19:34)
[2022-10-09 10:30] VITALS: BP 103/45
[2022-10-09 18:00] VITALS: BP 101/58
--- NOTE | 2022-10-09 18:51 | NUR ---
Gave report to Emily STREETER.
[2022-10-09 22:00] VITALS: BP 84/49
--- NOTE | 2022-10-10 06:16 | NUR ---
Problems reprioritized. Patient report given, questions answered & plan of care reviewed with Nishi BACA.
--- NOTE | 2022-10-10 06:25 | NUR ---
Patient in room [facility] 355. I have received report from Emily STREETER and had the opportunity to ask questions and assume patient care.
[2022-10-10 06:36] VITALS: BP 108/51
[2022-10-10] MEDS: docusate sod 100mg capsule PO SCH ×2 (07:59→20:02)
[2022-10-10] MEDS: clopidogrel 75mg tablet PO SCH (07:59)
[2022-10-10] MEDS: FERROUS SULFATE 142 MG TABLET.ER (45mg elemental) PO SCH ×2 (07:59→20:02)
[2022-10-10] MEDS: atorvastatin 20mg tablet PO SCH (07:59)
[2022-10-10] MEDS: ascorbic acid 500mg tablet PO SCH ×2 (07:59→20:03)
[2022-10-10] MEDS: sulfamethoxazole/trimethoprim DS (800/160mg) tablet PO SCH ×2 (07:59→20:02)
[2022-10-10] MEDS: JUVEN Smoothie Arginine/Glut./Ca2+Bmb (Juven 19.3pkt) 240ml cup PO SCH ×2 (08:00→12:35)
[2022-10-10] MEDS: Dakins solution (1/4 strength) 473ml solution TP SCH (08:00)
[2022-10-10] MEDS: K and/or MAG REPLACEMENT MC SCH ×2 (08:01→20:00)
[2022-10-10] MEDS: LACTOSE-REDUCED FOOD 237ML LIQUID PO SCH ×3 (08:01→18:23)
[2022-10-10] MEDS: traMADol 50MG tablet PO PRN ×2 (13:16→20:04)
[2022-10-10 18:00] VITALS: BP 103/49
--- NOTE | 2022-10-10 18:10 | NUR ---
report given to Emerson STREETER. Patient currently in bed resting. All safety measures in place and call light in reach.
[2022-10-10 22:30] VITALS: BP 85/52
[2022-10-11 06:00] VITALS: BP 108/55
--- NOTE | 2022-10-11 06:14 | NUR ---
Patient in room [facility] 355. I have received report from Emerson STREETER and had the opportunity to ask questions and assume patient care.
[2022-10-11] MEDS: traMADol 50MG tablet PO PRN ×2 (06:22→10:38)
[2022-10-11] MEDS: acetaminophen 325mg tablet PO PRN (06:22)
--- NOTE | 2022-10-11 06:34 | NUR ---
Problems reprioritized. Patient report given, questions answered & plan of care reviewed with Nishi BACA.
[2022-10-11] MEDS: sulfamethoxazole/trimethoprim DS (800/160mg) tablet PO SCH (07:38)
[2022-10-11] MEDS: docusate sod 100mg capsule PO SCH ×2 (07:38→21:01)
[2022-10-11] MEDS: ascorbic acid 500mg tablet PO SCH ×2 (07:38→21:05)
[2022-10-11] MEDS: clopidogrel 75mg tablet PO SCH (07:38)
[2022-10-11] MEDS: atorvastatin 20mg tablet PO SCH (07:38)
[2022-10-11] MEDS: FERROUS SULFATE 142 MG TABLET.ER (45mg elemental) PO SCH ×2 (07:38→21:06)
[2022-10-11] MEDS: JUVEN Smoothie Arginine/Glut./Ca2+Bmb (Juven 19.3pkt) 240ml cup PO SCH ×2 (07:42→13:29)
[2022-10-11] MEDS: LACTOSE-REDUCED FOOD 237ML LIQUID PO SCH ×3 (07:43→21:01)
[2022-10-11] MEDS: K and/or MAG REPLACEMENT MC SCH ×2 (07:43→21:00)
[2022-10-11] MEDS: Dakins solution (1/4 strength) 473ml solution TP SCH (07:43)
[2022-10-11 11:00] VITALS: BP 101/53
--- NOTE | 2022-10-11 18:00 | NUR ---
I have reviewed and agree with interventions, assessments and documentation by Nishi Arroyo LVN
[2022-10-11] MEDS ORDERED: sulfamethoxazole/trimethoprim DS (800/160mg) tablet PO ONE (21:20)
[2022-10-11 22:00] VITALS: BP 102/55
[2022-10-12 06:00] VITALS: BP 104/54
--- NOTE | 2022-10-12 06:09 | NUR ---
Patient in room [facility]. I have received report from Christiane STREETER and had the opportunity to ask questions and assume patient care.
[2022-10-12 06:34] VITALS: BP 104/54
[2022-10-12] MEDS: JUVEN Smoothie Arginine/Glut./Ca2+Bmb (Juven 19.3pkt) 240ml cup PO SCH ×2 (06:45→12:33)
[2022-10-12] MEDS: FERROUS SULFATE 142 MG TABLET.ER (45mg elemental) PO SCH ×2 (07:07→19:32)
[2022-10-12] MEDS: docusate sod 100mg capsule PO SCH ×3 (07:08→19:35)
[2022-10-12] MEDS: ascorbic acid 500mg tablet PO SCH ×2 (07:08→19:33)
[2022-10-12] MEDS: traMADol 50MG tablet PO PRN ×3 (07:08→19:33)
[2022-10-12] MEDS: clopidogrel 75mg tablet PO SCH (07:08)
[2022-10-12] MEDS: atorvastatin 20mg tablet PO SCH (07:08)
[2022-10-12] MEDS: Dakins solution (1/4 strength) 473ml solution TP SCH (07:09)
[2022-10-12] MEDS: K and/or MAG REPLACEMENT MC SCH ×2 (07:46→20:00)
[2022-10-12] MEDS: LACTOSE-REDUCED FOOD 237ML LIQUID PO SCH ×3 (07:46→18:00)
[2022-10-12] MEDS ORDERED: sulfamethoxazole/trimethoprim DS (800/160mg) tablet PO SCH (08:00)
[2022-10-12] MEDS: acetaminophen 325mg tablet PO PRN (09:56)
[2022-10-12 10:00] VITALS: BP 96/54
--- NOTE | 2022-10-12 11:48 | NUR ---
Reassessment: PO intake of meals declined following last RD assessment (10/07) to 0-25% however pt back up to average 69% PO intake of meals since 10/10. Per EMR pt with 100% PO intake of Elias smoothie BID since lunch 10/09 and mostly 100% PO intake of Ensure Plus HP TID since 10/09. Overall pt meeting estimated nutrient needs. Pt may no longer require Ensure TID IF PO intake of meals continues to improve. LBM 10/11. No further nutrition intervention implemented at this time. Will continue to follow. Recommendations: 1. Liberalize to regular/EC7/chop all diet given poor initial meal acceptance and fluctuating intake trends; encourage PO intake 2. [place] pt food preferences: no eggs, gravy with meat, mashed potatoes BIDLD 3. Chocolate Ensure Plus High Protein TIDWM; change Elias smoothie BIDBD to chocolate Elias shake BID; monitor need to adjust ONS rx in view of improved PO intake of meals 4. Continue routine Fe and Vitamin C supplementation per MD in view of low serum Fe, TIBC, and %sat 5. Routine bowel care 6. Scaled wt this admit; subsequent weekly scaled wts Addendum: 10/12/22 at [address] Amended: Links added.
--- NOTE | 2022-10-12 17:00 | NUR ---
I have reviewed and agree with interventions, assessments, and documentation by Nishi Arroyo LVN .
--- NOTE | 2022-10-12 17:10 | NUR ---
WV in place @ 125. Tramadol given 3x this shift. No acute changes this shift. Turned every two hours as tolerated per patient. All safety measures in place and call light in reach. Will continue to monitor.
[2022-10-12 18:00] VITALS: BP 104/54
[2022-10-12 23:00] VITALS: BP 109/51
[2022-10-13] MEDS: traMADol 50MG tablet PO PRN ×4 (00:22→17:16)
[2022-10-13 06:00] VITALS: BP 103/54
--- NOTE | 2022-10-13 06:24 | NUR ---
Patient in room [facility]. I have received report from Prashanth STREETER and had the opportunity to ask questions and assume patient care.
[2022-10-13] MEDS: docusate sod 100mg capsule PO SCH ×2 (08:00→20:59)
[2022-10-13] MEDS: K and/or MAG REPLACEMENT MC SCH ×2 (08:00→20:00)
[2022-10-13] MEDS: LACTOSE-REDUCED FOOD 237ML LIQUID PO SCH ×3 (08:25→17:59)
[2022-10-13] MEDS: JUVEN Smoothie Arginine/Glut./Ca2+Bmb (Juven 19.3pkt) 240ml cup PO SCH ×2 (08:25→12:36)
[2022-10-13] MEDS: FERROUS SULFATE 142 MG TABLET.ER (45mg elemental) PO SCH ×2 (08:32→20:59)
[2022-10-13] MEDS: atorvastatin 20mg tablet PO SCH (08:32)
[2022-10-13] MEDS: ascorbic acid 500mg tablet PO SCH ×2 (08:32→20:59)
[2022-10-13] MEDS: clopidogrel 75mg tablet PO SCH (08:32)
[2022-10-13 10:00] VITALS: BP 115/60
[2022-10-13] MEDS: Dakins solution (1/4 strength) 473ml solution TP SCH (10:30)
--- NOTE | 2022-10-13 13:14 | NUR ---
WOUND VAC EDUCATION PROVIDED BY WOUND CARE 1. Patient instructed to call the Wound Center or their Home Health Agency immediately if: * They notice a change in the color or amount of the fluid in the canister. * Their wound looks more red than usual or has a foul smell. * The skin around their wound looks reddened or irritated. * The dressing feels loose or appears to be loose. * They experience any increase or changes in their pain. * The alarm will not turn off. 2. Patient instructed that they should not be disconnected from suction for more than 2 hours at a time. * If they are not able to get the suction back on, they need to remove the dressing and take all of the foam out of the wound. * Then moisten sterile gauze with normal saline and place on/in the wound. * Change the dressing once a day until arrangements have been made to replace the wound vac dressing. 3. Patient instructed to turn the wound vac machine OFF and call 911 or go to the ED immediately if their canister fills rapidly with blood. 4. If any of these occur while in the hospital tell a nurse immediately. Addendum: 10/13/22 at 1315 by Rosalba Camargo LVN Amended: Links added.
--- NOTE | 2022-10-13 17:30 | NUR ---
I have reviewed and agree with interventions, assessments and documentation by Carie Wallis LVN.
--- NOTE | 2022-10-13 17:59 | NUR ---
Problems reprioritized. Patient report given, questions answered & plan of care reviewed with Radha STREETER.
[2022-10-13 18:00] VITALS: BP 94/50
[2022-10-13] MEDS: acetaminophen 325mg tablet PO PRN (20:59)
[2022-10-13 22:00] VITALS: BP 88/44
[2022-10-14] MEDS: traMADol 50MG tablet PO PRN ×4 (00:59→20:26)
[2022-10-14 02:42] VITALS: BP 102/55
[2022-10-14] MEDS: acetaminophen 325mg tablet PO PRN (04:42)
[2022-10-14 06:00] VITALS: BP 94/46
--- NOTE | 2022-10-14 06:13 | NUR ---
Gave report to Carie BACA
--- NOTE | 2022-10-14 06:35 | NUR ---
Patient in room [facility]. I have received report from Jennifer and had the opportunity to ask questions and assume patient care.
[2022-10-14] MEDS: K and/or MAG REPLACEMENT MC SCH ×2 (08:00→20:00)
[2022-10-14] MEDS: docusate sod 100mg capsule PO SCH ×2 (08:00→20:00)
[2022-10-14] MEDS: Dakins solution (1/4 strength) 473ml solution TP SCH (08:00)
[2022-10-14] MEDS: LACTOSE-REDUCED FOOD 237ML LIQUID PO SCH ×3 (08:10→18:02)
[2022-10-14] MEDS: JUVEN Smoothie Arginine/Glut./Ca2+Bmb (Juven 19.3pkt) 240ml cup PO SCH ×2 (08:10→12:48)
[2022-10-14] MEDS: ascorbic acid 500mg tablet PO SCH ×2 (08:12→20:25)
[2022-10-14] MEDS: clopidogrel 75mg tablet PO SCH (08:13)
[2022-10-14] MEDS: FERROUS SULFATE 142 MG TABLET.ER (45mg elemental) PO SCH ×3 (08:13→20:28)
[2022-10-14] MEDS: atorvastatin 20mg tablet PO SCH (08:13)
[2022-10-14 11:00] VITALS: BP 108/57
[2022-10-14 18:00] VITALS: BP 92/49
--- NOTE | 2022-10-14 18:26 | NUR ---
Problems reprioritized. Patient report given, questions answered & plan of care reviewed with Ruby STREETER.
[2022-10-14 22:00] VITALS: BP 108/49
[2022-10-15 06:00] VITALS: BP 105/48
--- NOTE | 2022-10-15 06:20 | NUR ---
Patient in room [facility]. I have received report from SYL Garcia and had the opportunity to ask questions and assume patient care.
[2022-10-15] MEDS: JUVEN Smoothie Arginine/Glut./Ca2+Bmb (Juven 19.3pkt) 240ml cup PO SCH ×2 (07:52→12:30)
[2022-10-15] MEDS: K and/or MAG REPLACEMENT MC SCH ×2 (08:00→19:31)
[2022-10-15] MEDS: LACTOSE-REDUCED FOOD 237ML LIQUID PO SCH ×3 (08:12→18:09)
[2022-10-15 10:00] VITALS: BP 105/56
[2022-10-15] MEDS: acetaminophen 325mg tablet PO PRN ×2 (10:51→17:24)
[2022-10-15] MEDS: traMADol 50MG tablet PO PRN ×2 (10:51→17:24)
[2022-10-15] MEDS: docusate sod 100mg capsule PO SCH ×2 (10:52→19:31)
[2022-10-15] MEDS: FERROUS SULFATE 142 MG TABLET.ER (45mg elemental) PO SCH ×2 (10:52→19:33)
[2022-10-15] MEDS: clopidogrel 75mg tablet PO SCH (10:52)
[2022-10-15] MEDS: atorvastatin 20mg tablet PO SCH (10:52)
[2022-10-15] MEDS: ascorbic acid 500mg tablet PO SCH ×2 (10:53→19:34)
[2022-10-15 18:00] VITALS: BP 96/47
--- NOTE | 2022-10-15 18:40 | NUR ---
Problems reprioritized. Patient report given, questions answered & plan of care reviewed with SYL Vail.
[2022-10-15 22:00] VITALS: BP 96/50
[2022-10-16 05:00] VITALS: BP 94/50
--- NOTE | 2022-10-16 06:25 | NUR ---
Patient in room [facility]. I have received report from SYL Vail and had the opportunity to ask questions and assume patient care.
[2022-10-16] MEDS: JUVEN Smoothie Arginine/Glut./Ca2+Bmb (Juven 19.3pkt) 240ml cup PO SCH (07:30)
[2022-10-16] MEDS: K and/or MAG REPLACEMENT MC SCH ×2 (08:00→20:00)
[2022-10-16] MEDS: LACTOSE-REDUCED FOOD 237ML LIQUID PO SCH ×3 (08:23→18:01)
[2022-10-16] MEDS: atorvastatin 20mg tablet PO SCH (09:39)
[2022-10-16] MEDS: docusate sod 100mg capsule PO SCH ×3 (09:39→23:38)
[2022-10-16] MEDS: clopidogrel 75mg tablet PO SCH (09:39)
[2022-10-16] MEDS: ascorbic acid 500mg tablet PO SCH ×2 (09:39→23:38)
[2022-10-16] MEDS: FERROUS SULFATE 142 MG TABLET.ER (45mg elemental) PO SCH ×2 (09:39→23:38)
[2022-10-16] MEDS: acetaminophen 325mg tablet PO PRN ×3 (09:39→23:38)
[2022-10-16] MEDS: traMADol 50MG tablet PO PRN ×3 (09:39→23:38)
[2022-10-16 10:00] VITALS: BP 97/51
[2022-10-16 17:00] VITALS: BP 113/60
[2022-10-16 22:00] VITALS: BP 96/48
[2022-10-17] MEDS: acetaminophen 325mg tablet PO PRN (05:43)
[2022-10-17] MEDS: traMADol 50MG tablet PO PRN ×3 (05:44→21:22)
--- NOTE | 2022-10-17 06:20 | NUR ---
Problems reprioritized. Patient report given, questions answered & plan of care reviewed with SYL Almodovar.
--- NOTE | 2022-10-17 06:54 | NUR ---
Patient in room [facility]. I have received report from Mignon STREETER and had the opportunity to ask questions and assume patient care.
[2022-10-17] MEDS: ascorbic acid 500mg tablet PO SCH ×2 (07:41→20:00)
[2022-10-17] MEDS: docusate sod 100mg capsule PO SCH ×2 (07:41→21:17)
[2022-10-17] MEDS: LACTOSE-REDUCED FOOD 237ML LIQUID PO SCH ×3 (07:41→18:06)
[2022-10-17] MEDS: atorvastatin 20mg tablet PO SCH (07:41)
[2022-10-17] MEDS: clopidogrel 75mg tablet PO SCH (07:41)
[2022-10-17] MEDS: FERROUS SULFATE 142 MG TABLET.ER (45mg elemental) PO SCH ×2 (07:41→21:17)
[2022-10-17] MEDS: K and/or MAG REPLACEMENT MC SCH ×2 (07:42→20:00)
[2022-10-17 08:00] VITALS: BP 98/72
[2022-10-17 11:24] VITALS: BP 91/47
--- NOTE | 2022-10-17 16:48 | NUR ---
no acute changes this shift. Patient continues to refuse getting out of bed with nursing staff. Turned [id number]. Wound Vac intact @125 mm/gh. FC in place. All needs met by staff. All safety measures in place and call light in reach. Will continue to monitor.
[2022-10-17 18:00] VITALS: BP 110/56
--- NOTE | 2022-10-17 18:20 | NUR ---
Patient in room [facility]. I have received report from PHUONG Almodovar and had the opportunity to ask questions and assume patient care. Patient laying on right side sleeping comfortably, I will continue to monitor.
[2022-10-17 22:00] VITALS: BP 100/45
--- NOTE | 2022-10-18 06:02 | NUR ---
Problems reprioritized. Patient report given, questions answered & plan of care reviewed with SYL Almodovar.
--- NOTE | 2022-10-18 06:10 | NUR ---
Patient in room [facility]. I have received report from Monique STREETER and had the opportunity to ask questions and assume patient care.
[2022-10-18 06:26] VITALS: BP 96/66
[2022-10-18] MEDS: LACTOSE-REDUCED FOOD 237ML LIQUID PO SCH ×3 (08:00→18:00)
[2022-10-18] MEDS: K and/or MAG REPLACEMENT MC SCH ×2 (08:00→19:39)
[2022-10-18] MEDS: ascorbic acid 500mg tablet PO SCH ×2 (08:00→20:07)
[2022-10-18] MEDS: traMADol 50MG tablet PO PRN ×2 (09:24→17:36)
[2022-10-18] MEDS: FERROUS SULFATE 142 MG TABLET.ER (45mg elemental) PO SCH ×2 (09:24→20:07)
[2022-10-18] MEDS: docusate sod 100mg capsule PO SCH ×2 (09:25→19:39)
[2022-10-18] MEDS: clopidogrel 75mg tablet PO SCH (09:25)
[2022-10-18] MEDS: atorvastatin 20mg tablet PO SCH (09:25)
[2022-10-18 11:00] VITALS: BP 97/56
[2022-10-18] MEDS: acetaminophen 325mg tablet PO PRN (17:35)
[2022-10-18 18:00] VITALS: BP 113/62
[2022-10-18 23:00] VITALS: BP 99/42
[2022-10-19 06:00] VITALS: BP 105/48
[2022-10-19 06:37] LABS: ALBUMIN 2.5 G/DL (3.4-5.0); ANION GAP 5 (8-16); BLOOD UREA NITROGEN 24 MG/DL (7-18); BUN/CREATININE RATIO 27.9 (10.0-20.0); CALCIUM 8.7 MG/DL (8.5-10.1); CHLORIDE 102 MMOL/L (99-107); CREATININE 0.86 MG/DL (0.40-0.90); POTASSIUM 4.1 MMOL/L (3.5-5.1); SODIUM 138 MMOL/L (135-145); TOTAL CARBON DIOXIDE 30.9 MMOL/L (24-32); eGFR 64 ML/MIN
--- NOTE | 2022-10-19 06:37 | NUR ---
Patient in room [facility]. I have received report from Paris STREETER and had the opportunity to ask questions and assume patient care.
[2022-10-19 06:38] LABS: GLUCOSE 113 MG/DL (70-104)
[2022-10-19 06:45] LABS: BASOPHILS % (AUTO) 1.3 % (0-1); EOSINOPHILS % (AUTO) 0.4 % (0-6); HEMATOCRIT 29.8 % (35.0-45.0); HEMOGLOBIN 9.6 g/dl (12.0-16.0); LYMPHOCYTES # (AUTO) 0.9 X10'3 (1.1-4.8); LYMPHOCYTES % (AUTO) 41.8 % (21-51); MEAN CORPUSCULAR HEMOGLOBIN 27.2 PG (27.0-31.0); MEAN CORPUSCULAR HGB CONC 32.1 g/dL (33.0-36.5); MEAN CORPUSCULAR VOLUME 84.9 FL (78-98); MEAN PLATELET VOLUME 8.6 FL (7.4-10.4); MONOCYTES # (AUTO) 0.2 X10'3 (0-0.9); MONOCYTES % (AUTO) 9.9 % (2-12); NEUTROPHILS % (AUTO) 46.6 % (42-75); PLATELET COUNT 62 X10'3 (140-440); RED BLOOD COUNT 3.51 X10'6 (4.20-5.60); RED CELL DISTRIBUTION WIDTH 21.6 % (11.5-14.5); WHITE BLOOD COUNT 2.2 X10'3 (4.5-11.0)
[2022-10-19] MEDS: FERROUS SULFATE 142 MG TABLET.ER (45mg elemental) PO SCH ×2 (07:19→20:00)
[2022-10-19] MEDS: traMADol 50MG tablet PO PRN ×3 (07:19→23:20)
[2022-10-19] MEDS: ascorbic acid 500mg tablet PO SCH ×2 (07:19→20:00)
[2022-10-19] MEDS: clopidogrel 75mg tablet PO SCH (07:19)
[2022-10-19] MEDS: atorvastatin 20mg tablet PO SCH (07:19)
[2022-10-19] MEDS: docusate sod 100mg capsule PO SCH ×2 (07:20→20:00)
[2022-10-19] MEDS: K and/or MAG REPLACEMENT MC SCH ×2 (07:24→20:00)
[2022-10-19] MEDS: LACTOSE-REDUCED FOOD 237ML LIQUID PO SCH ×3 (07:25→18:00)
[2022-10-19 08:06] LABS: TOTAL CELLS COUNTED 100
[2022-10-19 08:07] LABS: ANISOCYTOSIS 3+; PLATELET ESTIMATE DECREASED
[2022-10-19 08:11] LABS: ELLIPTOCYTES 2+; HYPOCHROMASIA 1+; TOXIC VACUOLATION 2+
--- NOTE | 2022-10-19 08:51 | NUR ---
WOC note. 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
[2022-10-19 10:00] VITALS: BP 112/54
--- NOTE | 2022-10-19 12:13 | NUR ---
Reassessment: PO intake of meals fluctuates, documented with average 51% PO intake of meals since 10/13. PO intake of Ensure Enlive TID remains good, documented with mostly 100% PO intake of ONS. Combined PO intake of meals and ONS is meeting 100% estimated nutrient needs. Noted Elias smoothie was discontinued 10/16, possibly r/t pt refusing however pt goes through periods of refusing Elias smoothie and consuming 100%. Fortunately Ensure Enlive contains HMB and other nutrients that will assist with wound healing. LBM 10/18 per I&O. No further nutrition intervention implemented at this time. Will continue to follow and make recommendations as appropriate. Recommendations: 1. Liberalize to regular/EC7/chop all diet given poor initial meal acceptance and fluctuating intake trends; encourage PO intake 2. [place] pt food preferences: no eggs, gravy with meat, mashed potatoes BIDLD 3. Chocolate Ensure Plus High Protein TIDWM; Monitor need to resume Elias BID (pt prefers chocolate) 4. Continue routine Fe and Vitamin C supplementation per MD in view of low serum Fe, TIBC, and %sat 5. Routine bowel care 6. Scaled wt this admit; subsequent weekly scaled wts Addendum: 10/19/22 at [address] Amended: Links added.
[2022-10-19] MEDS ORDERED: LIDOcaine 40mg/ml topical solution MM ONE (14:30)
--- NOTE | 2022-10-19 16:30 | NUR ---
I have reviewed and agree with interventions, assessments and documentation by Nishi Arroyo LVN.
--- NOTE | 2022-10-19 18:10 | NUR ---
Patient in room [facility]. I have received report from PHUONG Almodovar and had the opportunity to ask questions and assume patient care. Patient sitting up eating dinner, has no needs at this time. I will continue to monitor.
[2022-10-19 20:00] VITALS: BP 111/54
[2022-10-19] MEDS: acetaminophen 325mg tablet PO PRN (23:20)
[2022-10-20 06:00] VITALS: BP 97/55
--- NOTE | 2022-10-20 06:30 | NUR ---
Patient in room [facility]. I have received report from SYL Amaya and had the opportunity to ask questions and assume patient care.
[2022-10-20] MEDS: traMADol 50MG tablet PO PRN (07:10)
[2022-10-20] MEDS: acetaminophen 325mg tablet PO PRN (07:11)
[2022-10-20] MEDS: ascorbic acid 500mg tablet PO SCH ×2 (07:49→20:15)
[2022-10-20] MEDS: atorvastatin 20mg tablet PO SCH (07:49)
[2022-10-20] MEDS: docusate sod 100mg capsule PO SCH ×2 (07:49→20:14)
[2022-10-20] MEDS: FERROUS SULFATE 142 MG TABLET.ER (45mg elemental) PO SCH ×2 (07:49→20:14)
[2022-10-20] MEDS: LACTOSE-REDUCED FOOD 237ML LIQUID PO SCH ×3 (07:51→18:13)
[2022-10-20] MEDS: K and/or MAG REPLACEMENT MC SCH ×2 (07:51→20:16)
[2022-10-20 10:00] VITALS: BP 93/46
--- NOTE | 2022-10-20 14:08 | NUR ---
Wound care in for NPWT dressing removal from the coccyx STG 3 in anticipation of planned debridement with wound care PA on 10/21/22. The patient is lying in bed in no apparent acute distress, aware of the intent and agreeable. She states that her pain is controlled at his time. The pt. was positioned to her right side. NPWT dressing removed from the coccyx wound retrieving two pieces of intact black foam, wound cleansed and rinsed. The wound was lightly packed with 1/2" Iodoform and covered with a dry dressing. The pt. was assisted to reposition for stated comfort. Bed left in the lowest position, call light/personal items in reach. Report was given to the primary nurse. Addendum: 10/20/22 at 1422 by Rosalba Camargo LVN Amended: Links added.
--- NOTE | 2022-10-20 15:19 | NUR ---
Wound care done by wound care team. Wound Vac removed, and new dressing applied. Per wound care, I&D to be done 10/21 and wound vac replaced 10/22. Addendum: 10/20/22 at 1521 by Raine Back LVN, LVN Amended: Links added. Addendum: 10/20/22 at 1533 by Katerine Rivera RN Agree with [facility] documentation
--- NOTE | 2022-10-20 15:45 | NUR ---
Called and spoke with wound care team regarding I & D scheduled for tomorrow. Got ok to give Plavix both today and tomorrow.
[2022-10-20] MEDS: clopidogrel 75mg tablet PO SCH (15:58)
[2022-10-20 18:00] VITALS: BP 91/45
[2022-10-20 22:00] VITALS: BP 146/72
[2022-10-21] MEDS: acetaminophen 325mg tablet PO PRN (02:20)
[2022-10-21] MEDS: traMADol 50MG tablet PO PRN ×3 (02:20→20:24)
--- NOTE | 2022-10-21 05:44 | NUR ---
REVIEWED PRODUCTION ASSEMBLY OPERATOR ASSESSMENT AND IN AGREEMENT.
--- NOTE | 2022-10-21 06:19 | NUR ---
Problems reprioritized. Patient report given, questions answered & plan of care reviewed with PHUONG Ca.
--- NOTE | 2022-10-21 06:39 | NUR ---
Received report from PHUONG Quiroz; reprioritized plan of care. Patient checked on, no acute distress at this time. Bed in lowest position/ locked, call cheney within reach. Bed alarm on.
[2022-10-21] MEDS: K and/or MAG REPLACEMENT MC SCH ×2 (08:00→20:00)
[2022-10-21] MEDS: FERROUS SULFATE 142 MG TABLET.ER (45mg elemental) PO SCH ×2 (08:00→20:24)
[2022-10-21] MEDS: LACTOSE-REDUCED FOOD 237ML LIQUID PO SCH ×2 (08:00→18:12)
[2022-10-21] MEDS ORDERED: LIDOcaine 2% jelly 6ml syringe ***for topical use only TOP ONE (08:50)
[2022-10-21] MEDS: clopidogrel 75mg tablet PO SCH (08:57)
[2022-10-21] MEDS: atorvastatin 20mg tablet PO SCH (08:57)
[2022-10-21] MEDS: docusate sod 100mg capsule PO SCH ×2 (08:57→20:00)
[2022-10-21] MEDS: ascorbic acid 500mg tablet PO SCH ×2 (08:57→20:24)
[2022-10-21 10:00] VITALS: BP 139/57
--- NOTE | 2022-10-21 18:30 | NUR ---
Relayed plan of care to SYL Lugo. Reprioritized patients current needs and condition. NAD at this time.
[2022-10-21 18:57] VITALS: BP 105/48
[2022-10-21] MEDS: ondansetron 4mg rapidly disintigrating tab PO PRN (20:24)
[2022-10-21 23:00] VITALS: BP 98/47
--- NOTE | 2022-10-21 23:34 | NUR ---
Pt. is awake alert oriented mediocre spirits, regrets coming to hospital states has been her long enough. Pt. has a Pfeiffer cath with mod amount of cloudy urine.Takes po fluids and some nutrition well. Pt. is incontinent of stool. Able to turn from side to side with some assistance but yells with any movement. Sacral dressing intact. Plan for LTAC placement or home with family assistance.
[2022-10-22 06:00] VITALS: BP 117/86
--- NOTE | 2022-10-22 06:26 | NUR ---
Received report from SYL Lugo. Reprioritized patient's plan of care, current status. Patient checked on, no acute distress at this time. Bed in lowest position/ locked, call cheney within reach.
[2022-10-22] MEDS: traMADol 50MG tablet PO PRN ×3 (06:51→17:35)
[2022-10-22] MEDS: K and/or MAG REPLACEMENT MC SCH ×2 (08:00→20:00)
[2022-10-22] MEDS: ascorbic acid 500mg tablet PO SCH ×2 (08:22→20:45)
[2022-10-22] MEDS: clopidogrel 75mg tablet PO SCH (08:22)
[2022-10-22] MEDS: FERROUS SULFATE 142 MG TABLET.ER (45mg elemental) PO SCH ×2 (08:22→20:45)
[2022-10-22] MEDS: LACTOSE-REDUCED FOOD 237ML LIQUID PO SCH ×3 (08:23→18:39)
[2022-10-22] MEDS: atorvastatin 20mg tablet PO SCH (08:23)
[2022-10-22] MEDS: docusate sod 100mg capsule PO SCH ×2 (08:23→20:44)
[2022-10-22 10:00] VITALS: BP 96/58
--- NOTE | 2022-10-22 14:18 | NUR ---
WOUND VAC EDUCATION PROVIDED BY WOUND CARE 1. Patient instructed to call the Wound Center or their Home Health Agency immediately if: * They notice a change in the color or amount of the fluid in the canister. * Their wound looks more red than usual or has a foul smell. * The skin around their wound looks reddened or irritated. * The dressing feels loose or appears to be loose. * They experience any increase or changes in their pain. * The alarm will not turn off. 2. Patient instructed that they should not be disconnected from suction for more than 2 hours at a time. * If they are not able to get the suction back on, they need to remove the dressing and take all of the foam out of the wound. * Then moisten sterile gauze with normal saline and place on/in the wound. * Change the dressing once a day until arrangements have been made to replace the wound vac dressing. 3. Patient instructed to turn the wound vac machine OFF and call 911 or go to the ED immediately if their canister fills rapidly with blood. 4. If any of these occur while in the hospital tell a nurse immediately. Addendum: 10/22/22 at 1418 by Rosalba Camargo LVN Amended: Links added.
[2022-10-22 18:00] VITALS: BP 108/58
--- NOTE | 2022-10-22 18:40 | NUR ---
Reprioritized needs and care to Harriett STREETER. Patient is NAD at this time.
[2022-10-22] MEDS: acetaminophen 325mg tablet PO PRN (20:45)
[2022-10-22 22:00] VITALS: BP 96/59
--- NOTE | 2022-10-23 06:42 | NUR ---
Patient in room [facility]. I have received report from No and had the opportunity to ask questions and assume patient care.
[2022-10-23 06:56] VITALS: BP 101/56
--- NOTE | 2022-10-23 07:24 | NUR ---
Patient in room [facility]. I have received report from SELINA STREETER and had the opportunity to ask questions and assume patient care.
[2022-10-23] MEDS: ascorbic acid 500mg tablet PO SCH ×2 (07:46→20:49)
[2022-10-23] MEDS: atorvastatin 20mg tablet PO SCH (07:46)
[2022-10-23] MEDS: clopidogrel 75mg tablet PO SCH (07:47)
[2022-10-23] MEDS: traMADol 50MG tablet PO PRN ×2 (07:47→16:06)
[2022-10-23] MEDS: FERROUS SULFATE 142 MG TABLET.ER (45mg elemental) PO SCH ×2 (07:47→20:48)
[2022-10-23] MEDS: docusate sod 100mg capsule PO SCH ×2 (07:48→20:00)
[2022-10-23] MEDS: K and/or MAG REPLACEMENT MC SCH ×2 (08:00→20:00)
[2022-10-23] MEDS: LACTOSE-REDUCED FOOD 237ML LIQUID PO SCH ×3 (08:00→18:00)
[2022-10-23 12:18] VITALS: BP 103/53
[2022-10-23 18:00] VITALS: BP 98/41
--- NOTE | 2022-10-23 18:29 | NUR ---
Problems reprioritized. Patient report given, questions answered & plan of care reviewed with TOPHER STREETER.
--- NOTE | 2022-10-23 18:33 | NUR ---
Problems reprioritized. Patient report given to jaleel rn, questions answered & plan of care reviewed with .
[2022-10-23 22:00] VITALS: BP 96/44
[2022-10-24] MEDS: traMADol 50MG tablet PO PRN ×2 (06:29→13:11)
--- NOTE | 2022-10-24 06:35 | NUR ---
Patient in room [facility]. I have received report from NASEEM RN and had the opportunity to ask questions and assume patient care.
--- NOTE | 2022-10-24 07:00 | NUR ---
Patient in room [facility]. I have received report from TOPHER STREETER and had the opportunity to ask questions and assume patient care.
[2022-10-24 07:27] VITALS: BP 89/47
[2022-10-24] MEDS: K and/or MAG REPLACEMENT MC SCH ×2 (08:00→20:00)
[2022-10-24] MEDS: clopidogrel 75mg tablet PO SCH (08:08)
[2022-10-24] MEDS: ascorbic acid 500mg tablet PO SCH ×2 (08:09→20:09)
[2022-10-24] MEDS: docusate sod 100mg capsule PO SCH (08:09)
[2022-10-24] MEDS: FERROUS SULFATE 142 MG TABLET.ER (45mg elemental) PO SCH ×2 (08:09→20:09)
[2022-10-24] MEDS: atorvastatin 20mg tablet PO SCH (08:09)
[2022-10-24] MEDS: LACTOSE-REDUCED FOOD 237ML LIQUID PO SCH ×3 (08:23→18:39)
--- NOTE | 2022-10-24 10:13 | NUR ---
INTENSIVE LUBRICATING CREAM APPLIED TO FEET AND LEGS
--- NOTE | 2022-10-24 17:03 | NUR ---
Student documentation: I have reviewed all interventions, assessments performed and documented by DEBBIE WISEMAN.
--- NOTE | 2022-10-24 17:37 | NUR ---
PURE WICK PLACED SUCTION SET FOR LOW CONTINOUS FOR PT. WILL NOTIFY UPCOMING SHIFT FOR ASSESSMENT
[2022-10-24 18:00] VITALS: BP 113/50
--- NOTE | 2022-10-24 18:24 | NUR ---
Problems reprioritized. Patient report given TO NASEEM RN, questions answered & plan of care reviewed with .
--- NOTE | 2022-10-24 18:25 | NUR ---
Problems reprioritized. Patient report given, questions answered & plan of care reviewed with TOPHER STREETER.
[2022-10-24] MEDS: sennosides/docusate sodium tablet PO SCH (21:00)
[2022-10-24 22:00] VITALS: BP 99/53
[2022-10-25 06:00] VITALS: BP 96/50
--- NOTE | 2022-10-25 06:30 | NUR ---
Patient in room [facility]. I have received report from Genna STREETER and had the opportunity to ask questions and assume patient care.
[2022-10-25] MEDS: K and/or MAG REPLACEMENT MC SCH ×2 (08:00→20:00)
[2022-10-25] MEDS: ascorbic acid 500mg tablet PO SCH ×2 (08:20→21:09)
[2022-10-25] MEDS: atorvastatin 20mg tablet PO SCH (08:21)
[2022-10-25] MEDS: FERROUS SULFATE 142 MG TABLET.ER (45mg elemental) PO SCH ×2 (08:21→21:09)
[2022-10-25] MEDS: traMADol 50MG tablet PO PRN ×3 (08:21→23:54)
[2022-10-25] MEDS: LACTOSE-REDUCED FOOD 237ML LIQUID PO SCH ×3 (08:22→18:25)
--- NOTE | 2022-10-25 09:15 | NUR ---
PAGER ID: [phone] MESSAGE: [id number]- Issa Copeland: PLT trending down, 10/19 PLT 62. Can I hold plavix? TY Carie [id number] on floor. Received verbal or to hold plavix. MD will d/c and add new order for blood draw
[2022-10-25 09:55] LABS: BASOPHILS % (AUTO) 1.3 % (0-1); EOSINOPHILS % (AUTO) 0 % (0-6); HEMATOCRIT 31.2 % (35.0-45.0); HEMOGLOBIN 9.9 g/dl (12.0-16.0); LYMPHOCYTES # (AUTO) 0.5 X10'3 (1.1-4.8); LYMPHOCYTES % (AUTO) 23.3 % (21-51); MEAN CORPUSCULAR HEMOGLOBIN 27.1 PG (27.0-31.0); MEAN CORPUSCULAR HGB CONC 31.6 g/dL (33.0-36.5); MEAN CORPUSCULAR VOLUME 85.8 FL (78-98); MEAN PLATELET VOLUME 7.8 FL (7.4-10.4); MONOCYTES # (AUTO) 0.2 X10'3 (0-0.9); MONOCYTES % (AUTO) 8.8 % (2-12); NEUTROPHILS # (AUTO) 1.4 X10'3 (1.8-7.7); NEUTROPHILS % (AUTO) 66.6 % (42-75); PLATELET COUNT 56 X10'3 (140-440); RED BLOOD COUNT 3.64 X10'6 (4.20-5.60); RED CELL DISTRIBUTION WIDTH 21.4 % (11.5-14.5); WHITE BLOOD COUNT 2.1 X10'3 (4.5-11.0)
[2022-10-25 10:17] LABS: ALANINE AMINOTRANSFERASE 12 U/L (12-78); ALBUMIN 2.5 G/DL (3.4-5.0); ALBUMIN/GLOBULIN RATIO 0.5 (1.1-1.5); ALKALINE PHOSPHATASE 71 IU/L (46-116); ANION GAP 7 (8-16); ASPARTATE AMINO TRANSFERASE 19 U/L (10-37); BILIRUBIN,TOTAL 0.3 MG/DL (0.1-1.0); BLOOD UREA NITROGEN 30 MG/DL (7-18); BUN/CREATININE RATIO 34.9 (10.0-20.0); CALCIUM 8.8 MG/DL (8.5-10.1); CHLORIDE 103 MMOL/L (99-107); CREATININE 0.86 MG/DL (0.40-0.90); GLUCOSE 152 MG/DL (70-104); POTASSIUM 3.8 MMOL/L (3.5-5.1); SODIUM 138 MMOL/L (135-145); TOTAL CARBON DIOXIDE 28.5 MMOL/L (24-32); TOTAL PROTEIN 7.3 G/DL (6.4-8.2); eGFR 64 ML/MIN
[2022-10-25 10:40] LABS: PLATELET ESTIMATE DECREASED; TOTAL CELLS COUNTED 100
[2022-10-25 10:41] LABS: ANISOCYTOSIS 3+; ELLIPTOCYTES 2+; TEAR DROP CELLS 1+
[2022-10-25 11:00] VITALS: BP 110/50
--- NOTE | 2022-10-25 16:20 | NUR ---
PAGER ID: [phone] MESSAGE: [id number]- Moy Copeland: Pt is agreeable for matthew placement. Can you order this? AYAD Darnell [id number] Addendum: 10/25/22 at 1625 by Carie Rich LVN Wound care encouraged that f/c be continued, patient is agreeable. Dr. Caldwell called after page and stated, "I know wound care wants, I know patient wants, I don't want it."
[2022-10-25 18:00] VITALS: BP 94/50
--- NOTE | 2022-10-25 18:00 | NUR ---
I have reviewed and agree with interventions, assessments performed, documentation by Carie Wallis LVN.
--- NOTE | 2022-10-25 18:38 | NUR ---
Problems reprioritized. Patient report given, questions answered & plan of care reviewed with Purnima STREETER.
[2022-10-25] MEDS: sennosides/docusate sodium tablet PO SCH (21:00)
[2022-10-25 22:00] VITALS: BP 105/47
[2022-10-26 06:00] VITALS: BP 101/63
--- NOTE | 2022-10-26 06:28 | NUR ---
Problems reprioritized. Patient report given, questions answered & plan of care reviewed with PHUONG BOWMAN.
--- NOTE | 2022-10-26 06:30 | NUR ---
Patient in room [facility]. I have received report from Purnima STREETER and had the opportunity to ask questions and assume patient care.
[2022-10-26] MEDS: ascorbic acid 500mg tablet PO SCH ×2 (07:31→23:08)
[2022-10-26] MEDS: traMADol 50MG tablet PO PRN (07:31)
[2022-10-26] MEDS: FERROUS SULFATE 142 MG TABLET.ER (45mg elemental) PO SCH ×2 (07:31→23:08)
[2022-10-26] MEDS: atorvastatin 20mg tablet PO SCH (07:31)
[2022-10-26] MEDS: K and/or MAG REPLACEMENT MC SCH ×2 (08:00→20:00)
[2022-10-26] MEDS: LACTOSE-REDUCED FOOD 237ML LIQUID PO SCH ×3 (08:00→18:40)
[2022-10-26 10:00] VITALS: BP 95/53
--- NOTE | 2022-10-26 14:14 | NUR ---
Reassessment: PO intake of meals continues to fluctuate, often documented with 25-50% PO intake though occasionally up to 75%. PO intake of Ensure remains consistent with mostly 100% PO intake of ONS that occasionally drops to 50-75%. Pt seen at bedside for additional food preferences that were d/w dietary, see below. Pt states she loves the Ensure. Pt provided with ONS coupons and RD contact information and encouraged to reach out if needed. LBM 10/25 per I&O. Will continue to follow. Recommendations: 1. Liberalize to regular/EC7/chop all diet given poor initial meal acceptance and fluctuating intake trends; encourage PO intake 2. [place] pt food preferences: no eggs or carrots; gravy with meat, mashed potatoes, and chocolate shake BIDLD 3. Chocolate Ensure Plus High Protein TIDWM, sub Ensure Enlive d/t product shortage; Monitor need to resume Elias BID (pt prefers chocolate) 4. Continue routine Fe and Vitamin C supplementation per MD in view of low serum Fe, TIBC, and %sat 5. Routine bowel care 6. Scaled wt this admit; subsequent weekly scaled wts Addendum: 10/26/22 at [address] Amended: Links added.
[2022-10-26 18:00] VITALS: BP 105/47
--- NOTE | 2022-10-26 18:00 | NUR ---
I have reviewed and agree with interventions, assessments, and documentation by Carie Wallis LVN.
--- NOTE | 2022-10-26 18:00 | NUR ---
I have reviewed and agree with interventions, assessments, and documentation by Carie Wallis LVN.
--- NOTE | 2022-10-26 18:31 | NUR ---
Problems reprioritized. Patient report given, questions answered & plan of care reviewed with Purnima STREETER.
[2022-10-26] MEDS: sennosides/docusate sodium tablet PO SCH (21:00)
[2022-10-26 22:00] VITALS: BP 108/50
[2022-10-27] MEDS: traMADol 50MG tablet PO PRN ×4 (02:26→20:52)
--- NOTE | 2022-10-27 06:44 | NUR ---
Problems reprioritized. Patient report given, questions answered & plan of care reviewed with PHUONG MERIDA.
[2022-10-27 08:00] VITALS: BP 95/51
[2022-10-27] MEDS: K and/or MAG REPLACEMENT MC SCH ×2 (08:00→20:00)
[2022-10-27] MEDS: atorvastatin 20mg tablet PO SCH (08:06)
[2022-10-27] MEDS: FERROUS SULFATE 142 MG TABLET.ER (45mg elemental) PO SCH ×2 (08:06→20:50)
[2022-10-27] MEDS: ascorbic acid 500mg tablet PO SCH ×2 (08:06→20:51)
[2022-10-27] MEDS: LACTOSE-REDUCED FOOD 237ML LIQUID PO SCH ×3 (08:07→18:30)
[2022-10-27 10:00] VITALS: BP 96/38
--- NOTE | 2022-10-27 13:42 | NUR ---
WOUND VAC EDUCATION PROVIDED BY WOUND CARE 1. Patient instructed to call the Wound Center or their Home Health Agency immediately if: * They notice a change in the color or amount of the fluid in the canister. * Their wound looks more red than usual or has a foul smell. * The skin around their wound looks reddened or irritated. * The dressing feels loose or appears to be loose. * They experience any increase or changes in their pain. * The alarm will not turn off. 2. Patient instructed that they should not be disconnected from suction for more than 2 hours at a time. * If they are not able to get the suction back on, they need to remove the dressing and take all of the foam out of the wound. * Then moisten sterile gauze with normal saline and place on/in the wound. * Change the dressing once a day until arrangements have been made to replace the wound vac dressing. 3. Patient instructed to turn the wound vac machine OFF and call 911 or go to the ED immediately if their canister fills rapidly with blood. 4. If any of these occur while in the hospital tell a nurse immediately. Addendum: 10/27/22 at 1343 by Dominique Muniz RN Amended: Links added.
--- NOTE | 2022-10-27 16:43 | NUR ---
Patient resting in bed at this time. No acute changes this shift. Tramadol given for pain [id number]. Patient turned every two hours. See wc notes for WV placement details. New WV in place and has minimal drainage. Left foot is reddening around heel. elevated on pillows to decrease breakdown. All needs met by staff. WIK in place. All safety measures in place and call light in reach. Will continue to monitor.
[2022-10-27 18:00] VITALS: BP 108/50
--- NOTE | 2022-10-27 18:00 | NUR ---
I have reviewed and agree with interventions, assessments, and documentation by Nishi Arroyo LVN.
--- NOTE | 2022-10-27 18:10 | NUR ---
Patient in room [facility] 355. I have received report from PHUONG Almodovar and had the opportunity to ask questions and assume patient care.
[2022-10-27] MEDS: sennosides/docusate sodium tablet PO SCH (20:51)
[2022-10-27] MEDS: acetaminophen 325mg tablet PO PRN (20:51)
[2022-10-27 22:00] VITALS: BP 99/35
[2022-10-28 06:12] VITALS: BP 98/47
--- NOTE | 2022-10-28 06:30 | NUR ---
Patient in room [facility]. I have received report from Meredith STREETER and had the opportunity to ask questions and assume patient care.
--- NOTE | 2022-10-28 06:34 | NUR ---
Problems reprioritized. Patient report given, questions answered & plan of care reviewed with PHUONG Darnell.
[2022-10-28] MEDS: atorvastatin 20mg tablet PO SCH (07:55)
[2022-10-28] MEDS: FERROUS SULFATE 142 MG TABLET.ER (45mg elemental) PO SCH ×2 (07:55→19:39)
[2022-10-28] MEDS: ascorbic acid 500mg tablet PO SCH ×2 (07:55→19:40)
[2022-10-28] MEDS: traMADol 50MG tablet PO PRN (07:56)
[2022-10-28] MEDS: K and/or MAG REPLACEMENT MC SCH ×2 (08:00→19:19)
[2022-10-28] MEDS: LACTOSE-REDUCED FOOD 237ML LIQUID PO SCH ×4 (08:06→19:16)
[2022-10-28 11:40] VITALS: BP 106/60
[2022-10-28 11:50] LABS: BASOPHILS % (AUTO) 0.7 % (0-1); EOSINOPHILS % (AUTO) 0.3 % (0-6); HEMATOCRIT 28.1 % (35.0-45.0); LYMPHOCYTES # (AUTO) 0.6 X10'3 (1.1-4.8); LYMPHOCYTES % (AUTO) 30.3 % (21-51); MEAN CORPUSCULAR HEMOGLOBIN 27.3 PG (27.0-31.0); MEAN CORPUSCULAR HGB CONC 32.1 g/dL (33.0-36.5); MONOCYTES # (AUTO) 0.2 X10'3 (0-0.9); MONOCYTES % (AUTO) 9.8 % (2-12); NEUTROPHILS # (AUTO) 1.1 X10'3 (1.8-7.7); NEUTROPHILS % (AUTO) 58.9 % (42-75); PLATELET COUNT 52 X10'3 (140-440); RED BLOOD COUNT 3.31 X10'6 (4.20-5.60); WHITE BLOOD COUNT 1.9 X10'3 (4.5-11.0)
[2022-10-28 12:16] LABS: ANISOCYTOSIS 3+; ELLIPTOCYTES 1+; PLATELET ESTIMATE DECREASED; TEAR DROP CELLS 1+
--- NOTE | 2022-10-28 12:53 | NUR ---
PAGER ID: [phone] MESSAGE: TerryO- Issa Copeland: WBC noted 1.9, do you want pt on neutropenic precautions? Stanislaw Darnell [id number]
--- NOTE | 2022-10-28 15:54 | NUR ---
SUPERCHARGER MECHANIC documentation: I have reviewed and agree with all interventions, assessments performed and documented by Carie Rich LVN.
[2022-10-28 18:00] VITALS: BP 107/51
--- NOTE | 2022-10-28 18:23 | NUR ---
Problems reprioritized. Patient report given, questions answered & plan of care reviewed with Charmaine STREETER.
--- NOTE | 2022-10-28 18:30 | NUR ---
Patient in room [facility]. I have received report from GRACIE STREETER and had the opportunity to ask questions and assume patient care.
[2022-10-28] MEDS: sennosides/docusate sodium tablet PO SCH (20:51)
[2022-10-28 22:00] VITALS: BP 94/59
--- NOTE | 2022-10-29 05:39 | NUR ---
COMPUTER NETWORK SPECIALIST DOCUMENTATION I have reviewed and agree with all interventions, assessments performed and documented by JOSÉ MIGUEL BACA.
[2022-10-29 06:00] VITALS: BP 135/86
--- NOTE | 2022-10-29 06:30 | NUR ---
Problems reprioritized. Patient report given, questions answered & plan of care reviewed with ANNALISA STREETER.
--- NOTE | 2022-10-29 06:41 | NUR ---
Reviewed and updated plan of care with SYL Patrick. Reported off to SYL Patrick
--- NOTE | 2022-10-29 06:55 | NUR ---
Patient in room [facility]. I have received report from Angela nuñez and had the opportunity to ask questions and assume patient care.
[2022-10-29] MEDS: FERROUS SULFATE 142 MG TABLET.ER (45mg elemental) PO SCH ×2 (07:27→20:01)
[2022-10-29] MEDS: atorvastatin 20mg tablet PO SCH (07:27)
[2022-10-29] MEDS: ascorbic acid 500mg tablet PO SCH ×2 (07:28→20:01)
[2022-10-29] MEDS: K and/or MAG REPLACEMENT MC SCH ×2 (08:00→20:00)
[2022-10-29 08:47] LABS: POLYCHROMASIA FEW; TOTAL CELLS COUNTED 100; TOXIC VACUOLATION 1+
[2022-10-29 10:00] VITALS: BP 116/60
[2022-10-29] MEDS: LACTOSE-REDUCED FOOD 237ML LIQUID PO SCH ×2 (13:00→18:02)
[2022-10-29] MEDS: traMADol 50MG tablet PO PRN ×2 (15:43→21:49)
--- NOTE | 2022-10-29 16:16 | NUR ---
WOUND VAC EDUCATION PROVIDED BY WOUND CARE 1. Patient instructed to call the Wound Center or their Home Health Agency immediately if: * They notice a change in the color or amount of the fluid in the canister. * Their wound looks more red than usual or has a foul smell. * The skin around their wound looks reddened or irritated. * The dressing feels loose or appears to be loose. * They experience any increase or changes in their pain. * The alarm will not turn off. 2. Patient instructed that they should not be disconnected from suction for more than 2 hours at a time. * If they are not able to get the suction back on, they need to remove the dressing and take all of the foam out of the wound. * Then moisten sterile gauze with normal saline and place on/in the wound. * Change the dressing once a day until arrangements have been made to replace the wound vac dressing. 3. Patient instructed to turn the wound vac machine OFF and call 911 or go to the ED immediately if their canister fills rapidly with blood. 4. If any of these occur while in the hospital tell a nurse immediately. Addendum: 10/29/22 at 1616 by Rosalba Camargo LVN Amended: Links added.
[2022-10-29 18:00] VITALS: BP 103/42
--- NOTE | 2022-10-29 18:28 | NUR ---
All cares given to patient. appeared forgetful this am, not rembering that he took his morning meds and breakfast. Able to reorientate. wound vac changed by wound team. report given to Charmaine STREETER
--- NOTE | 2022-10-29 18:35 | NUR ---
Report also given to Genna STREETER
[2022-10-29] MEDS: sennosides/docusate sodium tablet PO SCH (20:03)
[2022-10-29 22:00] VITALS: BP 109/61
--- NOTE | 2022-10-30 06:52 | NUR ---
Patient in room [facility]. I have received report from RAH STREETER and had the opportunity to ask questions and assume patient care.
[2022-10-30 07:00] VITALS: BP 117/51
[2022-10-30] MEDS: K and/or MAG REPLACEMENT MC SCH ×2 (08:00→20:00)
[2022-10-30] MEDS: FERROUS SULFATE 142 MG TABLET.ER (45mg elemental) PO SCH ×2 (08:28→20:20)
[2022-10-30] MEDS: LACTOSE-REDUCED FOOD 237ML LIQUID PO SCH ×3 (08:28→18:00)
[2022-10-30] MEDS: atorvastatin 20mg tablet PO SCH (08:28)
[2022-10-30] MEDS: ascorbic acid 500mg tablet PO SCH ×2 (08:28→20:20)
[2022-10-30] MEDS: traMADol 50MG tablet PO PRN ×2 (08:34→20:20)
--- NOTE | 2022-10-30 10:40 | NUR ---
Reassessment: PO intake continues to fluctuate, documented with mostly 25-50% PO intake of meals since 10/27. Noted pt documented with 0% PO intake of breakfast 10/29 however per MD note pt did not get her breakfast tray as she was sleeping. Pt continues to have great acceptance to Ensure Enlive, documented with mostly 100% PO intake though down to 75% PO intake of two ONS 10/28. Combined PO intake of meals and ONS meets 82-100% estimated energy needs and 89-100% estimated protein needs. Pt has been seen by RD several times and continues receiving food preferences. Pt has RD contact information and has been encouraged to reach out should she have any additional preferences. LBM 10/29 per I&O. No further nutrition intervention implemented at this time. Will continue to follow. Recommendations: 1. Liberalize to regular/EC7/chop all diet given poor initial meal acceptance and fluctuating intake trends; encourage PO intake 2. [place] pt food preferences: no eggs or carrots; gravy with meat, mashed potatoes, and chocolate shake BIDLD 3. Chocolate Ensure Plus High Protein TIDWM, sub Ensure Enlive d/t product shortage; Monitor need to resume Elias BID (pt prefers chocolate) 4. Continue routine Fe and Vitamin C supplementation per MD in view of low serum Fe, TIBC, and %sat 5. Routine bowel care 6. Scaled wt this admit; subsequent weekly scaled wts Addendum: 10/30/22 at [address] Amended: Links added.
--- NOTE | 2022-10-30 10:48 | NUR ---
PATIENT HAVING MULTIPLE stools some stool found under wound vac. wound vac stopped and wet to moist dressing applied. will continue to monitor
[2022-10-30] MEDS ORDERED: loperamide 2mg capsule PO PRN (12:20)
[2022-10-30 18:00] VITALS: BP 87/49
[2022-10-30 19:03] LABS: MONOCYTES # (AUTO) 0.2 X10'3 (0-0.9); MONOCYTES % (AUTO) 6.6 % (2-12)
[2022-10-30 19:05] LABS: BASOPHILS % (AUTO) 0.6 % (0-1); EOSINOPHILS % (AUTO) 0 % (0-6); HEMATOCRIT 30.3 % (35.0-45.0); HEMOGLOBIN 9.7 g/dl (12.0-16.0); LYMPHOCYTES # (AUTO) 0.7 X10'3 (1.1-4.8); LYMPHOCYTES % (AUTO) 29.6 % (21-51); MEAN CORPUSCULAR HEMOGLOBIN 27.7 PG (27.0-31.0); MEAN CORPUSCULAR HGB CONC 32.1 g/dL (33.0-36.5); MEAN CORPUSCULAR VOLUME 86.3 FL (78-98); MEAN PLATELET VOLUME 8.1 FL (7.4-10.4); NEUTROPHILS # (AUTO) 1.5 X10'3 (1.8-7.7); NEUTROPHILS % (AUTO) 63.2 % (42-75); PLATELET COUNT 58 X10'3 (140-440); RED BLOOD COUNT 3.52 X10'6 (4.20-5.60); RED CELL DISTRIBUTION WIDTH 20.7 % (11.5-14.5); WHITE BLOOD COUNT 2.4 X10'3 (4.5-11.0)
[2022-10-30 19:08] LABS: ALBUMIN 2.6 G/DL (3.4-5.0); ANION GAP 7 (8-16); BLOOD UREA NITROGEN 28 MG/DL (7-18); BUN/CREATININE RATIO 33.7 (10.0-20.0); CALCIUM 8.9 MG/DL (8.5-10.1); CHLORIDE 103 MMOL/L (99-107); CREATININE 0.83 MG/DL (0.40-0.90); SODIUM 139 MMOL/L (135-145); TOTAL CARBON DIOXIDE 29.2 MMOL/L (24-32); eGFR 66 ML/MIN
[2022-10-30 19:12] LABS: GLUCOSE 166 MG/DL (70-104)
--- NOTE | 2022-10-30 20:55 | NUR ---
Problems reprioritized. Patient report given, questions answered & plan of care reviewed with jareth STREETER.
[2022-10-30] MEDS: sennosides/docusate sodium tablet PO SCH (21:00)
[2022-10-30 21:01] LABS: BANDS% (MANUAL) 10.3 % (0-10); LYMPHOCYTES % (MANUAL) 17.2 % (21-51); METAMYLEOCYTES% (MANUAL) 5.2 % (0-0); MONOCYTES % (MANUAL) 8.6 % (2-12); MYELOCYTES % (MANUAL) 1.7 % (0-0); NEUTROPHILS % (MANUAL) 56.9 % (42-75); TOTAL CELLS COUNTED 58
[2022-10-30 21:03] LABS: ANISOCYTOSIS 3+; PLATELET ESTIMATE DECREASED
[2022-10-30 21:04] LABS: ELLIPTOCYTES 1+; HYPOCHROMASIA 1+; TEAR DROP CELLS 1+
[2022-10-30 22:00] VITALS: BP 88/42
[2022-10-31] MEDS: traMADol 50MG tablet PO PRN ×3 (03:08→22:32)
[2022-10-31 05:00] VITALS: BP 94/54
[2022-10-31] MEDS: K and/or MAG REPLACEMENT MC SCH ×2 (08:00→20:00)
[2022-10-31] MEDS: FERROUS SULFATE 142 MG TABLET.ER (45mg elemental) PO SCH ×2 (08:12→20:30)
[2022-10-31] MEDS: atorvastatin 20mg tablet PO SCH (08:12)
[2022-10-31] MEDS: ascorbic acid 500mg tablet PO SCH ×2 (08:13→20:30)
[2022-10-31] MEDS: acetaminophen 325mg tablet PO PRN (08:13)
[2022-10-31] MEDS: LACTOSE-REDUCED FOOD 237ML LIQUID PO SCH ×3 (08:14→18:26)
[2022-10-31 10:00] VITALS: BP 88/46
[2022-10-31 18:00] VITALS: BP 96/44
--- NOTE | 2022-10-31 18:24 | NUR ---
Report given to Jesus STREETER.
[2022-10-31] MEDS: sennosides/docusate sodium tablet PO SCH (20:30)
[2022-10-31 22:55] VITALS: BP 103/50
[2022-11-01] MEDS: traMADol 50MG tablet PO PRN ×2 (04:58→19:22)
[2022-11-01 06:00] VITALS: BP 110/56
--- NOTE | 2022-11-01 06:00 | NUR ---
Patient in room [facility]. I have received report from Jesus STREETER and had the opportunity to ask questions and assume patient care.
--- NOTE | 2022-11-01 06:14 | NUR ---
Problems reprioritized. Patient report given TO JJ BACA, questions answered & plan of care reviewed with .
[2022-11-01] MEDS: K and/or MAG REPLACEMENT MC SCH ×2 (07:18→20:00)
[2022-11-01] MEDS: atorvastatin 20mg tablet PO SCH (07:57)
[2022-11-01] MEDS: FERROUS SULFATE 142 MG TABLET.ER (45mg elemental) PO SCH ×2 (07:57→19:21)
[2022-11-01] MEDS: ascorbic acid 500mg tablet PO SCH ×2 (07:57→19:21)
[2022-11-01] MEDS: LACTOSE-REDUCED FOOD 237ML LIQUID PO SCH ×4 (08:00→19:00)
[2022-11-01 10:00] VITALS: BP 86/44
[2022-11-01 18:00] VITALS: BP 94/42
--- NOTE | 2022-11-01 18:00 | NUR ---
I have reviewed and agree with interventions, assessments performed, and documentation by Jaelyn Hong LVN.
--- NOTE | 2022-11-01 18:32 | NUR ---
Problems reprioritized. Patient report given, questions answered & plan of care reviewed with Newton STREETER.
[2022-11-01] MEDS: sennosides/docusate sodium tablet PO SCH (20:08)
[2022-11-01 22:00] VITALS: BP 94/42
[2022-11-02 01:16] VITALS: BP 95/57
[2022-11-02 06:00] VITALS: BP 103/52
--- NOTE | 2022-11-02 06:20 | NUR ---
Problems reprioritized. Patient report given TO VALENTINO BACA, questions answered & plan of care reviewed with .
--- NOTE | 2022-11-02 06:45 | NUR ---
Patient in room [facility] 355. I have received report from PHUONG Ricks & Jesus STREETER and had the opportunity to ask questions and assume patient care.
[2022-11-02] MEDS: atorvastatin 20mg tablet PO SCH (07:24)
[2022-11-02] MEDS: FERROUS SULFATE 142 MG TABLET.ER (45mg elemental) PO SCH ×2 (07:24→20:26)
[2022-11-02] MEDS: ascorbic acid 500mg tablet PO SCH ×2 (07:24→20:26)
[2022-11-02] MEDS: K and/or MAG REPLACEMENT MC SCH ×2 (08:00→20:00)
[2022-11-02 10:00] VITALS: BP 96/53
[2022-11-02] MEDS: LACTOSE-REDUCED FOOD 237ML LIQUID PO SCH ×3 (13:00→19:00)
[2022-11-02] MEDS: traMADol 50MG tablet PO PRN ×2 (14:20→22:57)
[2022-11-02 18:00] VITALS: BP 118/60
--- NOTE | 2022-11-02 18:00 | NUR ---
I have reviewed and agree with interventions, assessments, and documentation by Issa Whitten LVN.
--- NOTE | 2022-11-02 18:19 | NUR ---
Problems reprioritized. Patient report given, questions answered & plan of care reviewed with SYL Srinivasan.
--- NOTE | 2022-11-02 18:30 | NUR ---
Patient in room [facility]. I have received report from Issa BACA and had the opportunity to ask questions and assume patient care.
[2022-11-02] MEDS: sennosides/docusate sodium tablet PO SCH (20:26)
[2022-11-02 22:00] VITALS: BP 91/46
--- NOTE | 2022-11-02 22:40 | NUR ---
patient refused to be turned. patient did not want me to do wound care until the am.
[2022-11-03] MEDS: traMADol 50MG tablet PO PRN ×3 (05:06→20:25)
[2022-11-03 06:00] VITALS: BP 94/51
--- NOTE | 2022-11-03 06:46 | NUR ---
Patient in room [facility]. I have received report from SYL Medina and had the opportunity to ask questions and assume patient care.
[2022-11-03] MEDS: K and/or MAG REPLACEMENT MC SCH ×2 (08:00→20:00)
[2022-11-03] MEDS: FERROUS SULFATE 142 MG TABLET.ER (45mg elemental) PO SCH ×2 (08:27→20:26)
[2022-11-03] MEDS: atorvastatin 20mg tablet PO SCH (08:27)
[2022-11-03] MEDS: ascorbic acid 500mg tablet PO SCH ×2 (08:27→20:26)
[2022-11-03] MEDS: Dakins solution (1/4 strength) 473ml solution TP SCH (10:45)
[2022-11-03 11:00] VITALS: BP 94/52
[2022-11-03] MEDS: acetaminophen 325mg tablet PO PRN ×2 (13:34→20:26)
--- NOTE | 2022-11-03 14:31 | NUR ---
F/u 11/03: Pt PO further regressing now 0% mostly past 3 days w/ increased refusals of Ensures only ~59% ONS not meeting needs. Pt seen by RD at bedside; pt reports would like seasoning w/ meals RD educated pt on seasoning packets brought w/ trays. Pt reports not thinking of seasoning packets, dislikes chocolate shakes, and wants real salt packets w/ meals. Dietary notified of preferences and RD paged MD regarding removal of heart healthy diet since still remains inappropriate given prolonged poor meal acceptance this LOS. Pt further reports food preferences which are already being honored; RD encouraged pt to make further food preferences known. Noted 0% lunch but at least 1.5 Ensures consumed at bedside during RD visit. LBM 11/02. Will continue to follow. Recommendations: 1. Liberalize to regular/EC7/chop all diet given poor initial meal acceptance and fluctuating intake trends; encourage PO intake 2. [place] pt food preferences: no eggs or carrots; gravy with meat, mashed potatoes 3. Chocolate Ensure Plus High Protein TIDWM, sub Ensure Enlive d/t product shortage; Monitor need to resume Elias BID if meal acceptance improves (pt prefers chocolate) 4. Continue routine Fe and Vitamin C supplementation per MD in view of low serum Fe, TIBC, and %sat 5. Routine bowel care 6. Scaled wt this admit; subsequent weekly scaled wts Addendum: 11/03/22 at [address] Amended: Links added.
--- NOTE | 2022-11-03 15:11 | NUR ---
PAGER ID: [phone] MESSAGE: Colleen CopelandB. Pfeiffer cath placed, urine patricia with odor and pus. Would you like a UA? Thanks, Raine [id number]
[2022-11-03 18:00] VITALS: BP 92/48
--- NOTE | 2022-11-03 18:30 | NUR ---
Problems reprioritized. Patient report given, questions answered & plan of care reviewed with SYL Montano.
--- NOTE | 2022-11-03 18:35 | NUR ---
Patient in room [facility]. I have received report from TERRENCE BACA and had the opportunity to ask questions and assume patient care.
[2022-11-03] MEDS: LACTOSE-REDUCED FOOD 237ML LIQUID PO SCH (19:00)
--- NOTE | 2022-11-03 19:11 | NUR ---
BUSHLER documentation: I have reviewed and agree with all interventions, assessments performed and documented by Raine BACA. No new findings noted.
[2022-11-03] MEDS: sennosides/docusate sodium tablet PO SCH (20:24)
[2022-11-03 22:00] VITALS: BP 100/44
[2022-11-04 06:00] VITALS: BP 109/56
--- NOTE | 2022-11-04 06:32 | NUR ---
Problems reprioritized. Patient report given, questions answered & plan of care reviewed with TERRENCE BACA.
--- NOTE | 2022-11-04 06:37 | NUR ---
Patient in room [facility] 355. I have received report from SYL Montano and had the opportunity to ask questions and assume patient care.
[2022-11-04] MEDS: K and/or MAG REPLACEMENT MC SCH ×2 (08:00→19:49)
[2022-11-04] MEDS: FERROUS SULFATE 142 MG TABLET.ER (45mg elemental) PO SCH ×2 (08:01→19:44)
[2022-11-04] MEDS: atorvastatin 20mg tablet PO SCH (08:02)
[2022-11-04] MEDS: ascorbic acid 500mg tablet PO SCH ×2 (08:02→19:44)
[2022-11-04] MEDS: Dakins solution (1/4 strength) 473ml solution TP SCH (08:05)
[2022-11-04] MEDS: LACTOSE-REDUCED FOOD 237ML LIQUID PO SCH ×3 (08:16→19:00)
[2022-11-04 10:00] VITALS: BP 117/56
[2022-11-04] MEDS: acetaminophen 325mg tablet PO PRN ×2 (10:12→19:45)
[2022-11-04] MEDS: traMADol 50MG tablet PO PRN ×2 (10:13→19:44)
--- NOTE | 2022-11-04 10:47 | NUR ---
Patient adamantly refusing to be turned every 2 hours. Education provided on importance of repositioning due to coccyx wound. Patient verbalized understanding but still refuses. Will continue to try and reposition patient q2.
--- NOTE | 2022-11-04 14:53 | NUR ---
BERRY PICKER MACHINE OPERATOR documentation: I have reviewed and agree with all interventions, assessments performed and documented by Raine Oviedo LVN.
[2022-11-04 18:00] VITALS: BP 102/49
--- NOTE | 2022-11-04 18:28 | NUR ---
Problems reprioritized. Patient report given, questions answered & plan of care reviewed with SYL Montano.
--- NOTE | 2022-11-04 18:30 | NUR ---
Patient in room [facility] 355. I have received report from TERRENCE STREETER and had the opportunity to ask questions and assume patient care.
[2022-11-04] MEDS: sennosides/docusate sodium tablet PO SCH (19:44)
[2022-11-04 22:00] VITALS: BP 108/52
--- NOTE | 2022-11-05 06:23 | NUR ---
Problems reprioritized. Patient report given, questions answered & plan of care reviewed with TERRENCE STREETER.
--- NOTE | 2022-11-05 06:46 | NUR ---
Patient in room [facility] 355. I have received report from SYL Montano and had the opportunity to ask questions and assume patient care.
[2022-11-05] MEDS: Dakins solution (1/4 strength) 473ml solution TP SCH (08:00)
[2022-11-05] MEDS: K and/or MAG REPLACEMENT MC SCH (08:00)
[2022-11-05] MEDS: FERROUS SULFATE 142 MG TABLET.ER (45mg elemental) PO SCH (08:12)
[2022-11-05] MEDS: LACTOSE-REDUCED FOOD 237ML LIQUID PO SCH (08:12)
[2022-11-05] MEDS: atorvastatin 20mg tablet PO SCH (08:12)
[2022-11-05] MEDS: ascorbic acid 500mg tablet PO SCH (08:13)
[2022-11-05] MEDS: traMADol 50MG tablet PO PRN (08:13)
[2022-11-05] MEDS: acetaminophen 325mg tablet PO PRN (08:13)
[2022-11-05 10:00] VITALS: BP 108/52
--- NOTE | 2022-11-05 13:00 | NUR ---
Pt wanting to leave AMA and refused to go to [facility] as pt said her friend there in 2013. Pt stated she wanted to go home. Her friend Bet in to visit pt and she she has a wheelchair in the car and ready to pick the pt up. Pt did agree to have home health. RUTHIE Felipa in to eval for further needs.
--- NOTE | 2022-11-05 15:00 | NUR ---
HEALTH PROFESSOR documentation: I have reviewed and agree with all interventions, assessments performed and documented by Raine Oviedo LVN .
--- NOTE | 2022-11-05 15:32 | NUR ---
sales engagement manager informed patient that she had a bed at [facility] to go for buttermaker continuous churn care. Walked in the room to patient yelling that she did not want to go because they would take all of her money, her apartment and her belongings. Patient continued to insist that she was going to leave AMA. sales engagement manager advised we could not keep her here and to get paperwork for AMA. Patient signed paperwork. Patient was educated on the risks of leaving AMA, that she had no help at home and is bed bound. Patient continued to insist she was leacing Addendum: 11/05/22 at 1734 by Raine Back LVN, LVN *leaving, and that we could not hold her against her will. Patient was educated by nursing staff, charge machine operator, rn case manager hospice, and social media intern about the danger of leaving in her current state of health. Education was provided on her lack of access to wound care, pain management, physical therapy, etc. at home and that she would continue to decline. Patient said she would be fine and had plan to get help at home. Social worked contacted to get clothing for patient. When patient was wheeled downstairs, she required the help of 3 aides plus teacher assistant to get into car. Once the patient was in the car she said "I changed my mind, I want to go to [facility]." I informed patient that she could no longer go to [facility] as she had left the building and was no longer a patient. Patient was told she would have to go through ER to come back into the hospital and we could not help her back into the building as this was a liability. sales engagement manager arrived at this point to reiterate the information that she could no longer come back up to Surgical floor as a patient. sales engagement manager also informed patient that RPA was no longer an option as she had left AMA. Patient then said "what if I tell the ER I'm going to kill myself, you would have to admit me." Both the rn case manager hospice and myself educated patient that threatening suicide is not a way to get admitted into the hospital and that she would likely be placed on a psych hold in the ER. Ultimately patient stated that she would leave but she intended to go home and call 911 to come back and be admitted. Addendum: 11/05/22 at 1737 by Raine Back LVN, LVN Patient was asked if suicidal when remark was made, patient stated no. Patient educated by both myself and rn case manager hospice on 0 process if she told ER staff she was suicidal.
--- NOTE | 2022-11-05 17:36 | NUR ---
notified of patients AMA.
[2022-11-05] MEDS ORDERED: FOLI1TAB27 PO (21:32)
[2022-11-05] MEDS ORDERED: FERR325T29 PO (21:32)
== END 2022-11-05 15:00 | disposition left against medical advice (07) | DRG 593 ==
LOC: ER 16:42 → ED HOLD 23:12 → SUR 3N 09-05 00:48
PROVIDERS: ADMIT Internal Medicine; ATTEND Family Medicine
PROC: 3E0234Z Introduction of Serum, Toxoid and Vaccine into Muscle, Percutaneous Approach (ICD-10-PCS; principal; 2022-09-09)
PROC: 3E02340 Introduction of Influenza Vaccine into Muscle, Percutaneous Approach (ICD-10-PCS; 2022-09-09)
DX: L89.153 Pressure ulcer of sacral region, stage 3 (principal); D61.818 Other pancytopenia; N17.9 Acute kidney failure, unspecified; N30.00 Acute cystitis without hematuria; L03.115 Cellulitis of right lower limb; Z66 Do not resuscitate; F17.210 Nicotine dependence, cigarettes, uncomplicated; I25.10 Atherosclerotic heart disease of native coronary artery without angina pectoris; J44.9 Chronic obstructive pulmonary disease, unspecified; M06.9 Rheumatoid arthritis, unspecified; Z53.29 Procedure and treatment not carried out because of patient's decision for other reasons; M54.9 Dorsalgia, unspecified; E78.5 Hyperlipidemia, unspecified; G89.29 Other chronic pain; M25.562 Pain in left knee; R62.7 Adult failure to thrive; K57.90 Diverticulosis of intestine, part unspecified, without perforation or abscess without bleeding; Z74.01 Bed confinement status; Z78.9 Other specified health status; I25.2 Old myocardial infarction; Z86.711 Personal history of pulmonary embolism; Z86.73 Personal history of transient ischemic attack (TIA), and cerebral infarction without residual deficits; Z87.442 Personal history of urinary calculi; Z88.0 Allergy status to penicillin; Z90.710 Acquired absence of both cervix and uterus; Z91.041 Radiographic dye allergy status; Z99.3 Dependence on wheelchair; Z23 Encounter for immunization; Z88.5 Allergy status to narcotic agent; Z88.8 Allergy status to other drugs, medicaments and biological substances; Z86.718 Personal history of other venous thrombosis and embolism; Z90.49 Acquired absence of other specified parts of digestive tract; Z79.899 Other long term (current) drug therapy; Z71.6 Tobacco abuse counseling; Z79.02 Long term (current) use of antithrombotics/antiplatelets; Z68.23 Body mass index [BMI] 23.0-23.9, adult
CPT/HCPCS: 36415; 71045; 73560; 80048; 80053; 80202; 81001; 83540; 83550; 83880; 84145; 85007; 85008; 85025; 87077; 87081; 87088; 87186; 90686; 90732; 96361; 96374; 96375; 97110; 97161; 97530; 97535; 97542; 99285; A4649; A5200; A6196; A6212; A6213; A6222; A6223; A6250; A6266; A6402; A6449; A6550; G0378; J0696; J2270; J3370; J3490; J7030; J7040

== ENCOUNTER 2022-11-05 18:51 | Inpatient (IN) | payer MEDICARE, MEDICAID ==
[~2022-11-05] VITALS: Ht 190.5 cm; Wt 86.4 kg
[~2022-11-05 18:51] MED LIST changes: -ACET-3209 PO; -ALBU8.5H17 INH; -ASPI-1264 PO; -ATOR20TA PO; +ATOR20TA66 PO; -CEPH-585 PO; -CLIN-97 PO; -CYCL-1 PO; -DIPH25CA83 PO; -LIDO20SO16 PO; -METO-395 PO; -OMEP-84 PO; -PHEN-716 PO
[2022-11-05] MEDS ORDERED: FERR325T29 PO (21:32)
[2022-11-05] MEDS ORDERED: FOLI1TAB27 PO (21:32)
[2022-11-05] MEDS ORDERED: traMADol 50MG tablet PO ONE (21:50)
[2022-11-05 21:51] LABS: MONOCYTES # (AUTO) 0.3 X10'3 (0-0.9); NEUTROPHILS # (AUTO) 3.3 X10'3 (1.8-7.7)
[2022-11-05 21:53] LABS: BASOPHILS % (AUTO) 0.6 % (0-1); EOSINOPHILS % (AUTO) 0 % (0-6); HEMATOCRIT 31.7 % (35.0-45.0); HEMOGLOBIN 9.9 g/dl (12.0-16.0); LYMPHOCYTES # (AUTO) 0.8 X10'3 (1.1-4.8); LYMPHOCYTES % (AUTO) 17.7 % (21-51); MEAN CORPUSCULAR HEMOGLOBIN 27.1 PG (27.0-31.0); MEAN CORPUSCULAR HGB CONC 31.3 g/dL (33.0-36.5); MEAN CORPUSCULAR VOLUME 86.6 FL (78-98); MONOCYTES % (AUTO) 6.7 % (2-12); PLATELET COUNT 73 X10'3 (140-440); RED BLOOD COUNT 3.66 X10'6 (4.20-5.60); WHITE BLOOD COUNT 4.4 X10'3 (4.5-11.0)
[2022-11-05 22:06] LABS: ALANINE AMINOTRANSFERASE 14 U/L (12-78); ALBUMIN 2.8 G/DL (3.4-5.0); ALBUMIN/GLOBULIN RATIO 0.5 (1.1-1.5); ALKALINE PHOSPHATASE 87 IU/L (46-116); ANION GAP 7 (8-16); ASPARTATE AMINO TRANSFERASE 18 U/L (10-37); BILIRUBIN,TOTAL 0.5 MG/DL (0.1-1.0); BLOOD UREA NITROGEN 33 MG/DL (7-18); BUN/CREATININE RATIO 31.7 (10.0-20.0); CALCIUM 9.2 MG/DL (8.5-10.1); CHLORIDE 102 MMOL/L (99-107); CREATININE 1.04 MG/DL (0.40-0.90); POTASSIUM 4.1 MMOL/L (3.5-5.1); SODIUM 139 MMOL/L (135-145); TOTAL CARBON DIOXIDE 29.6 MMOL/L (24-32); eGFR 51 ML/MIN
[2022-11-05 22:08] LABS: GLUCOSE 142 MG/DL (70-104)
[2022-11-05] MEDS ORDERED: ondansetron/PF 4mg/2ml inj IV PRN (22:10)
[2022-11-05] MEDS ORDERED: potassium Cl 20 mEq SR tablet PO PRN ×2 (22:10)
[2022-11-05] MEDS ORDERED: acetaminophen 325mg tablet PO PRN (22:10)
[2022-11-05] MEDS ORDERED: magnesium Cl slow-release 64mg tablet PO PRN (22:10)
[2022-11-05] MEDS ORDERED: potassium Cl 40MEQ/1/2NS 520ml 520 ML IV PRN (22:10)
[2022-11-05] MEDS: normal saline 1000ml 1,000 ML IV SCH (22:10)
[2022-11-05] MEDS ORDERED: magnesium 4gm in 100ml NS 100 ML IV PRN (22:10)
[2022-11-05] MEDS ORDERED: magnesium 2GM in 50ml NS 50 ML IV PRN (22:10)
[2022-11-05 22:28] LABS: PLATELET ESTIMATE DECREASED; TOTAL CELLS COUNTED 100
[2022-11-05 22:29] LABS: ANISOCYTOSIS 3+; ELLIPTOCYTES 1+; TEAR DROP CELLS FEW
--- NOTE | 2022-11-05 22:35 | NUR ---
PATIENT HAD WATERY BM, DARK, DRESSING TO COCCYX CHANGED, LINEN AND GOWN CHANGED. PATIENT REPOSITIONED FOR COMFORT. PATIENT PLACED ON BED HAZEL FOR VOID BUT WAS NOT ABLE TO GIVE UA SAMPLE AT THIS TIME. ALL SAFETY MEASURES IN PLACE.
[2022-11-05 23:50] VITALS: BP 100/61
[2022-11-06 06:13] LABS: ALBUMIN 2.6 G/DL (3.4-5.0); ANION GAP 6 (8-16); BLOOD UREA NITROGEN 30 MG/DL (7-18); BUN/CREATININE RATIO 34.1 (10.0-20.0); CALCIUM 8.9 MG/DL (8.5-10.1); CHLORIDE 103 MMOL/L (99-107); CREATININE 0.88 MG/DL (0.40-0.90); MAGNESIUM 2.3 MG/DL (1.5-2.4); POTASSIUM 3.8 MMOL/L (3.5-5.1); SODIUM 139 MMOL/L (135-145); TOTAL CARBON DIOXIDE 30.4 MMOL/L (24-32); eGFR 62 ML/MIN
[2022-11-06 06:15] LABS: GLUCOSE 130 MG/DL (70-104)
[2022-11-06 06:25] LABS: HEMOGLOBIN 9.1 g/dl (12.0-16.0); LYMPHOCYTES # (AUTO) 0.8 X10'3 (1.1-4.8); MONOCYTES # (AUTO) 0.3 X10'3 (0-0.9); MONOCYTES % (AUTO) 11.6 % (2-12); NEUTROPHILS # (AUTO) 1.4 X10'3 (1.8-7.7); PLATELET COUNT 58 X10'3 (140-440); WHITE BLOOD COUNT 2.5 X10'3 (4.5-11.0)
[2022-11-06 06:29] LABS: BASOPHILS % (AUTO) 0.9 % (0-1); EOSINOPHILS % (AUTO) 0.1 % (0-6); HEMATOCRIT 28.5 % (35.0-45.0); LYMPHOCYTES % (AUTO) 32.6 % (21-51); MEAN CORPUSCULAR HEMOGLOBIN 27.4 PG (27.0-31.0); MEAN CORPUSCULAR VOLUME 85.8 FL (78-98); MEAN PLATELET VOLUME 8.8 FL (7.4-10.4); NEUTROPHILS % (AUTO) 54.8 % (42-75); RED BLOOD COUNT 3.32 X10'6 (4.20-5.60); RED CELL DISTRIBUTION WIDTH 21.3 % (11.5-14.5)
--- NOTE | 2022-11-06 06:45 | NUR ---
Problems reprioritized. Patient report given, questions answered & plan of care reviewed with SURENDRA STREETER.
[2022-11-06 06:53] LABS: TOTAL CELLS COUNTED 100
[2022-11-06 06:54] LABS: ANISOCYTOSIS 3+; PLATELET ESTIMATE DECREASED
[2022-11-06 06:55] LABS: ELLIPTOCYTES 1+; HYPOCHROMASIA 1+; POLYCHROMASIA FEW; TEAR DROP CELLS 1+
[2022-11-06 07:00] VITALS: BP 95/56
--- NOTE | 2022-11-06 07:00 | NUR ---
Patient in room [facility]. I have received report from Tiesha Motley RN and had the opportunity to ask questions and assume patient care.
[2022-11-06] MEDS: K and/or MAG REPLACEMENT MC SCH ×2 (07:03→20:00)
--- NOTE | 2022-11-06 11:15 | NUR ---
Malnutrition consult: Pt unsure of wt loss though with decreased appetite per malnutrition risk screen with RN. Unfortunately current wt isn't scaled and a scaled wt was not obtained during recent admit 09/04-11/05 though pt did meet criteria for malnutrition that admit d/t prolonged poor PO intake x 18 days and severe muscle weakness. Per documentation PO intake of meals declined to mostly 0% since dinner 10/31 and pt documented with severe decrease in muscle strength this admit meeting criteria for severe malnutrition. Unfortunately pt yet again placed on a heart healthy diet this admit despite RD attempts at previous admit to liberalize to regular diet in view of poor meal intake. Recommend liberalizing to regular diet this admit with chocolate Ensure Enlive TID as that was the only ONS pt was accepting of at previous admit, physician notified. ONS to be sent pending physician approval in EMR. Additional food preferences will be resumed this admit, see below. 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 LBM 11/06 per EMR. Will continue to follow closely. Recommendations: 1) Liberalize to regular diet d/t h/o prolonged poor meal acceptance-physician paged 11/06; soft to chew chop all 2) [place] food preferences: gravy with meat, mashed potatoes; no eggs or carrots 3) Chocolate Ensure Enlive TID, pending physician approval in EMR 4) Bowel care PRN 5) Scaled weight this admit; subsequent weekly scaled weights Addendum: 11/06/22 at [address] Amended: Links added.
[2022-11-06 12:04] VITALS: BP 100/47
[2022-11-06] MEDS: traMADol 50MG tablet PO PRN (17:09)
--- NOTE | 2022-11-06 18:31 | NUR ---
Problems reprioritized. Patient report given, questions answered & plan of care reviewed with Emily STREETER.
[2022-11-06 23:00] VITALS: BP 91/48
[2022-11-07 06:05] LABS: BASOPHILS % (AUTO) 1.1 % (0-1); EOSINOPHILS % (AUTO) 0.1 % (0-6); HEMATOCRIT 27.7 % (35.0-45.0); HEMOGLOBIN 8.8 g/dl (12.0-16.0); LYMPHOCYTES # (AUTO) 0.8 X10'3 (1.1-4.8); LYMPHOCYTES % (AUTO) 33.3 % (21-51); MEAN CORPUSCULAR HEMOGLOBIN 27.3 PG (27.0-31.0); MEAN CORPUSCULAR HGB CONC 31.7 g/dL (33.0-36.5); MEAN CORPUSCULAR VOLUME 86.2 FL (78-98); MONOCYTES # (AUTO) 0.2 X10'3 (0-0.9); MONOCYTES % (AUTO) 9.4 % (2-12); NEUTROPHILS # (AUTO) 1.3 X10'3 (1.8-7.7); NEUTROPHILS % (AUTO) 56.1 % (42-75); PLATELET COUNT 65 X10'3 (140-440); RED BLOOD COUNT 3.21 X10'6 (4.20-5.60); RED CELL DISTRIBUTION WIDTH 20.9 % (11.5-14.5); WHITE BLOOD COUNT 2.4 X10'3 (4.5-11.0)
[2022-11-07 06:15] LABS: ALBUMIN 2.5 G/DL (3.4-5.0); ANION GAP 5 (8-16); BLOOD UREA NITROGEN 22 MG/DL (7-18); BUN/CREATININE RATIO 25.6 (10.0-20.0); CALCIUM 8.8 MG/DL (8.5-10.1); CHLORIDE 104 MMOL/L (99-107); CREATININE 0.86 MG/DL (0.40-0.90); MAGNESIUM 2.2 MG/DL (1.5-2.4); POTASSIUM 3.9 MMOL/L (3.5-5.1); SODIUM 140 MMOL/L (135-145); TOTAL CARBON DIOXIDE 30.8 MMOL/L (24-32); eGFR 64 ML/MIN
[2022-11-07 06:22] LABS: GLUCOSE 118 MG/DL (70-104)
[2022-11-07 06:36] VITALS: BP 101/46
--- NOTE | 2022-11-07 06:37 | NUR ---
Patient in room [facility] 355. I have received report from Emily STREETER and had the opportunity to ask questions and assume patient care.
[2022-11-07 06:52] LABS: ANISOCYTOSIS 3+; PLATELET ESTIMATE DECREASED; TOTAL CELLS COUNTED 100
[2022-11-07 06:53] LABS: ELLIPTOCYTES 1+; POLYCHROMASIA FEW; TEAR DROP CELLS FEW
[2022-11-07] MEDS: K and/or MAG REPLACEMENT MC SCH ×2 (08:00→20:00)
[2022-11-07] MEDS: folic acid 1mg tablet PO SCH (08:43)
[2022-11-07] MEDS: atorvastatin 20mg tablet PO SCH (08:43)
[2022-11-07] MEDS: clopidogrel 75mg tablet PO SCH (08:44)
[2022-11-07] MEDS: ferrous sulfate 325mg tablet PO SCH (08:44)
[2022-11-07] MEDS: traMADol 50MG tablet PO PRN (08:45)
[2022-11-07] MEDS: lactose-reduced food (Ensure Enlive) - 237ml bottle PO SCH ×5 (09:09→18:00)
[2022-11-07 11:04] VITALS: BP 98/52
[2022-11-07 18:00] VITALS: BP 91/57
--- NOTE | 2022-11-07 18:30 | NUR ---
Patient in room [facility]. I have received report from Jessica STREETER and had the opportunity to ask questions and assume patient care.
[2022-11-07] MEDS: normal saline 1000ml 1,000 ML IV SCH (22:10)
[2022-11-07 23:00] VITALS: BP 97/56
[2022-11-08 06:00] VITALS: BP 92/59
--- NOTE | 2022-11-08 06:30 | NUR ---
Patient in room [facility]. I have received report from Doretha and had the opportunity to ask questions and assume patient care.
[2022-11-08 06:38] LABS: BASOPHILS % (AUTO) 0.7 % (0-1); EOSINOPHILS % (AUTO) 0.1 % (0-6); HEMATOCRIT 26.2 % (35.0-45.0); HEMOGLOBIN 8.5 g/dl (12.0-16.0); LYMPHOCYTES # (AUTO) 0.8 X10'3 (1.1-4.8); LYMPHOCYTES % (AUTO) 33.6 % (21-51); MEAN CORPUSCULAR HEMOGLOBIN 28.1 PG (27.0-31.0); MEAN CORPUSCULAR HGB CONC 32.4 g/dL (33.0-36.5); MEAN CORPUSCULAR VOLUME 86.6 FL (78-98); MEAN PLATELET VOLUME 8.4 FL (7.4-10.4); MONOCYTES # (AUTO) 0.2 X10'3 (0-0.9); MONOCYTES % (AUTO) 9.9 % (2-12); NEUTROPHILS # (AUTO) 1.3 X10'3 (1.8-7.7); NEUTROPHILS % (AUTO) 55.7 % (42-75); PLATELET COUNT 61 X10'3 (140-440); RED BLOOD COUNT 3.02 X10'6 (4.20-5.60); RED CELL DISTRIBUTION WIDTH 21.3 % (11.5-14.5); WHITE BLOOD COUNT 2.3 X10'3 (4.5-11.0)
[2022-11-08 06:39] LABS: ALBUMIN 2.5 G/DL (3.4-5.0); ANION GAP 7 (8-16); BLOOD UREA NITROGEN 22 MG/DL (7-18); BUN/CREATININE RATIO 25.6 (10.0-20.0); CALCIUM 8.4 MG/DL (8.5-10.1); CHLORIDE 104 MMOL/L (99-107); CREATININE 0.86 MG/DL (0.40-0.90); GLUCOSE 128 MG/DL (70-104); MAGNESIUM 2.3 MG/DL (1.5-2.4); POTASSIUM 3.8 MMOL/L (3.5-5.1); SODIUM 137 MMOL/L (135-145); TOTAL CARBON DIOXIDE 25.7 MMOL/L (24-32); eGFR 64 ML/MIN
--- NOTE | 2022-11-08 06:45 | NUR ---
Problems reprioritized. Patient report given, questions answered & plan of care reviewed with Nishi BACA.
[2022-11-08 07:51] LABS: ANISOCYTOSIS 3+; PLATELET ESTIMATE DECREASED
[2022-11-08 07:52] LABS: ELLIPTOCYTES 1+
[2022-11-08 07:55] LABS: TOTAL CELLS COUNTED 100
[2022-11-08] MEDS: ferrous sulfate 325mg tablet PO SCH (08:00)
[2022-11-08] MEDS: lactose-reduced food (Ensure Enlive) - 237ml bottle PO SCH ×2 (08:00→13:04)
[2022-11-08] MEDS: K and/or MAG REPLACEMENT MC SCH (08:00)
[2022-11-08] MEDS: traMADol 50MG tablet PO PRN (09:29)
[2022-11-08] MEDS: clopidogrel 75mg tablet PO SCH (09:29)
[2022-11-08] MEDS: folic acid 1mg tablet PO SCH (09:29)
[2022-11-08] MEDS: atorvastatin 20mg tablet PO SCH (09:29)
[2022-11-08 09:54] VITALS: BP 94/49
--- NOTE | 2022-11-08 11:28 | NUR ---
Patient resting in bed. VSS. Wound care provided to patients coccyx. Agrees to go to [facility] for extensive rehab. Will be leaving facility at aT APPROX 1300.
--- NOTE | 2022-11-08 12:53 | NUR ---
PRESSURE ULCER EDUCATION: DEFINITION: A pressure ulcer is an area of skin that breaks down when you stay in one position too long. The constant pressure against the skin reduces the blood flow to that area and the affected tissue dies. CAUSES: "Being bedridden or in a wheelchair "Fragile skin "Having a chronic condition, such as diabetes or vascular disease "Inability to move certain parts of your body without assistance "Older age "Incontinence of urine or stool SYMPTOMS: "A reddened area that DOES NOT turn white when pressed on - this can be the beginning of a pressure ulcer "A blister, deep sore or a crater - these can be advanced pressure ulcers FIRST AID: "Relieve the pressure on this area "Keep the area clean and dry "Call your primary doctor if you see any of the above symptoms "DO NOT massage the area "DO NOT use a donut shaped or ring shaped pillow- these actually interfere with the blood flow and cause complications PREVENTION: "Check for pressure ulcers everyday "Change position at least every two hours to relieve pressure "Use items that help relieve pressure- pillows, sheepskin, foam padding, and powders. "Keep skin clean and dry "Eat healthy well balanced meals "Exercise daily IF YOU SEE ANY OF THESE SYMPTOMS WHILE IN THE HOSPITAL - TELL YOUR NURSE IMMEDIATELY. IF YOU SEE ANY OF THESE SYMPTOMS WHILE AT HOME OR HAVE ANY QUESTIONS OR CONCERNS ABOUT PRESSURE ULCERS - CALL YOUR PRIMARY DOCTOR IMMEDIATELY. Addendum: 11/08/22 at 1254 by Rosalba Camargo LVN Amended: Links added.
--- NOTE | 2022-11-08 13:00 | NUR ---
I have reviewed and agree with interventions, assessments, and documentation by Nishi Arroyo LVN.
--- NOTE | 2022-11-08 14:13 | NUR ---
Patient left by acosta with [employer] at 1315 to [facility] for further rehabilitation. Patient did not have ant belongings besides cell phone and weigher and charger which were with her.Dressing to coccyx area CDI> no c/o pain or discomfort. IV removed from right arm. Dressing secure. All paper work given to [employer] auto transport driver and called report to [facility] and report given to Jacqueline BACA.
== END 2022-11-08 13:25 | DRG 592 ==
LOC: ER 18:52 → ED HOLD 22:21 → EDBEDREQ 22:50 → SUR 3N 23:50
PROVIDERS: ADMIT Internal Medicine; ATTEND Family Medicine
DX: L89.153 Pressure ulcer of sacral region, stage 3 (principal); E43 Unspecified severe protein-calorie malnutrition; L03.119 Cellulitis of unspecified part of limb; D61.818 Other pancytopenia; M06.9 Rheumatoid arthritis, unspecified; I25.10 Atherosclerotic heart disease of native coronary artery without angina pectoris; G89.29 Other chronic pain; R62.7 Adult failure to thrive; K57.90 Diverticulosis of intestine, part unspecified, without perforation or abscess without bleeding; F17.200 Nicotine dependence, unspecified, uncomplicated; J44.9 Chronic obstructive pulmonary disease, unspecified; E78.5 Hyperlipidemia, unspecified; Z74.01 Bed confinement status; Z78.9 Other specified health status; I25.2 Old myocardial infarction; Z86.711 Personal history of pulmonary embolism; Z86.73 Personal history of transient ischemic attack (TIA), and cerebral infarction without residual deficits; Z87.442 Personal history of urinary calculi; Z88.0 Allergy status to penicillin; Z90.710 Acquired absence of both cervix and uterus; Z91.041 Radiographic dye allergy status; Z99.3 Dependence on wheelchair; Z88.8 Allergy status to other drugs, medicaments and biological substances; Z86.718 Personal history of other venous thrombosis and embolism; Z90.49 Acquired absence of other specified parts of digestive tract; Z79.899 Other long term (current) drug therapy; Z79.02 Long term (current) use of antithrombotics/antiplatelets; Z68.23 Body mass index [BMI] 23.0-23.9, adult
CPT/HCPCS: 36415; 80048; 80053; 83735; 85007; 85025; 87081; 97161; 97530; 99285; A6209; A6212; A6213; A6446; A6449; G0378